=== PATIENT | female | born 1965 | race American Indian/Alaskan Native ===

== ENCOUNTER 2017-11-12 17:17 | Observation (INO) | payer OTHER ==
[2017-11-12 17:17] VITALS: BMI 30.6
--- NOTE | 2017-11-12 17:49 | ED PDOC ---
HPI: General Adult Time Seen by Provider: 11/12/17 17:29 Chief Complaint (Nursing): Headache Chief Complaint (Provider): Headache and chest pain History Per: Patient History/Exam Limitations: no limitations Onset/Duration Of Symptoms: Days (5 months) Additional Complaint(s): Pt. with headache to the left scalp off and on for 5 months. Last few weeks also getting numbness to left lower scap and ear when she gets the pain. Pain is not the worst in her life. Gradual onset. States no vision changes, neck pain, abd pain, nausea, vomit. Also has off and on calf pain going up b/l legs. Also chest burning across today that is gone now. No dyspnea. Past Medical History Reviewed: Nursing Documentation, Vital Signs Vital Signs: Last Vital Signs Temp 98.3 F 11/12/17 17:25 Pulse 97 H 11/12/17 17:25 Resp 16 11/12/17 17:25 BP 188/92 H 11/12/17 17:25 Pulse Ox 98 11/12/17 17:58 - Medical History PMH: Asthma, Diabetes, HTN Denies: Chronic Kidney Disease - Surgical History Surgical History: Tonsillectomy - Family History Family History: States: Unknown Family Hx, Diabetes, Hypertension - Social History Alcohol: None Drugs: Denies - Home Medications Home Medications: Ambulatory Orders Medication Instructions Recorded Insulin Glargine,Hum.rec.anlog 36 unit SC BID 05/28/15 [Lantus] Gabapentin [Neurontin] 1 tab PO HS 12/07/15 MetFORMIN [glucoPHAGE] 1 tab PO BID 12/07/15 Acetaminophen with Codeine 5 - 325 mg PO Q6 PRN 01/30/16 [Tylenol with Codeine #3 Tablet] Amoxicillin/Clavulanate [Augmentin 875 mg PO BID 01/30/16 875 MG-125 MG Tab] Ibuprofen [Motrin Tab] 800 mg PO Q8 01/30/16 Insulin Lispro [Humalog (Insulin 36 unit SQ DAILY 01/30/16 Lispro)] Lisinopril/Hydrochlorothiazide 1 tab PO DAILY 01/30/16 [Lisinopril-Hydrochlorothiazide 25 mg-20 mg] Naproxen [Naprosyn] 500 mg PO PRN PRN 01/30/16 Amoxicillin/Potassium Clav 1 each PO BID #14 tablet 04/07/16 [Augmentin 875-125 Tablet] Sulfamethoxazole/Trimethoprim 1 tab PO BID #14 tab 09/07/16 [Bactrim DS 800 mg-160 mg] Tinidazole 2,000 mg PO DAILY #8 tablet 09/07/16 - Allergies Allergies/Adverse Reactions: Allergies Allergy/AdvReac Type Severity Reaction Status Date / Time No Known Allergies Allergy Verified 08/29/16 10:31 Review of Systems ROS Statement: Except As Marked, All Systems Reviewed And Found Negative Cardiovascular: Positive for: Chest Pain Musculoskeletal: Positive for: Leg Pain Neurological: Positive for: Headache Physical Exam - Reviewed Nursing Documentation Reviewed: Yes Vital Signs Reviewed: Yes - Physical Exam Appears: Positive for: Non-toxic, No Acute Distress Head Exam: Positive for: ATRAUMATIC, NORMAL INSPECTION, NORMOCEPHALIC Skin: Positive for: Normal Color, Warm, DRY Eye Exam: Positive for: EOMI, Normal appearance, PERRL ENT: Positive for: Normal ENT Inspection Neck: Positive for: Normal, Painless ROM, Supple Cardiovascular/Chest: Positive for: Regular Rate, Rhythm. Negative for: Edema Respiratory: Positive for: CNT, Normal Breath Sounds Gastrointestinal/Abdominal: Positive for: Normal Exam, Bowel Sounds, Soft. Negative for: Tenderness Back: Positive for: Normal Inspection. Negative for: L CVA Tenderness, R CVA Tenderness Extremity: Positive for: Normal ROM. 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 Negative for: Motor/Sensory Deficits, Aphasia, Facial Droop - Laboratory Results Result Diagrams: 11/12/17 17:55 - ECG ECG: Positive for: Interpreted By Me, Viewed By Nc ECG Rhythm: Positive for: Normal QRS, Normal ST Segment, Sinus Rhythm O2 Sat by Pulse Oximetry: 98 Pulse Ox Interpretation: Normal - Radiology X-Ray: Read By Radiologist X-Ray Interpretation: No Acute Disease - Other Rad US X-Ray: Read By Radiologist X-Ray Interpretation: no acute - Progress ED Course And Treament: 1909: Stable. Spoke with [facility] resident. Will admit tele. Disposition - Clinical Impression Clinical Impression: Headache, Chest pain - Patient ED Disposition Is Patient to be Admitted: Yes Counseled Patient/Family Regarding: Studies Performed, Diagnosis - Disposition Disposition Time: 19:09 Condition: FAIR - Pt Status Changed To: Hospital Disposition Of: Observation - POA Present On Arrival: None
[2017-11-12 18:08] LABS: BASO # 0.1 K/uL (0.0-0.2); BASO % 1.1 % (0.0-2.0); EOS # 0.3 K/uL (0.0-0.7); EOS % 6.2 % (0.0-4.0); HEMOGLOBIN 12.7 g/dL (12.0-16.0); LYMPH # 2.4 K/uL (1.0-4.3); LYMPH % 44.4 % (20.0-40.0); MEAN CELL VOLUME 79.4 fl (81.0-99.0); MEAN CORPUSCULAR HEMOGLOBIN 25.1 pg (27.0-31.0); MEAN CORPUSCULAR HGB CONC 31.6 g/dL (33.0-37.0); MEAN PLATELET VOLUME 8.3 fl (7.2-11.7); MONO # 0.3 K/uL (0.0-0.8); NEUT # 2.3 K/uL (1.8-7.0); NEUT % 42.3 % (50.0-75.0); NRBC % 0.2 % (0.0-0.0); RBC 5.05 Mil/uL (3.80-5.20); RED CELL DISTRIBUTION WIDTH 14.4 % (11.5-14.5); WHITE BLOOD COUNT 5.3 K/uL (4.8-10.8)
[2017-11-12 18:30] LABS: PARTIAL THROMBOPLASTIN TIME 29.8 Seconds (25.6-37.1); PROTHROMBIN TIME 10.5 Seconds (9.8-13.1)
[2017-11-12 18:32] LABS: ALBUMIN 3.8 g/dL (3.5-5.0); ALT/SGPT 30 U/L (9-52); AST/SGOT 38 U/L (14-36); BLOOD UREA NITROGEN 14 mg/dl (7-17); CALCIUM 9.6 mg/dL (8.4-10.2); GFR AFRICAN-AMERICAN > 60; GFR NON-AFRICAN AMERICAN > 60
--- NOTE | 2017-11-12 18:33 | RAD ---
HISTORY: Headache left facial numbness COMPARISON: 01/04/2016 FINDINGS: LUNGS: No active pulmonary disease. PLEURA: Unremarkable. CARDIOVASCULAR: Normal. OSSEOUS STRUCTURES: No significant abnormalities. VISUALIZED UPPER ABDOMEN: Normal. OTHER FINDINGS: None. IMPRESSION: No active disease. No significant interval change compared to the prior examination(s).
[2017-11-12] MEDS ORDERED: Aspirin 325 mg EC Tablets PO ONE (18:37)
[2017-11-12] MEDS: Lactated Ringer's 500 ML IV SCH (19:19)
--- NOTE | 2017-11-12 19:31 | CT ---
EXAM: CT Head Without Intravenous Contrast CLINICAL HISTORY: 52 years old, female; Pain and signs and symptoms; Numbness / parasthesia and other: Lt facial numbness; Left; Headache; Headache not specified TECHNIQUE: Axial computed tomography images of the head/brain without intravenous contrast. All CT scans at this facility use one or more dose reduction techniques, viz.: automated exposure control; ma/kV adjustment per patient size (including targeted exams where dose is matched to indication; i.e. head); or iterative reconstruction technique. Coronal and sagittal reformatted images were created and reviewed. COMPARISON: No relevant prior studies available. FINDINGS: Brain: Unremarkable. No significant white matter disease. No edema. No intracranial mass, mass effect, or midline shift. Ventricles: Unremarkable. No ventriculomegaly. Bones/joints: Unremarkable. No acute fracture. Soft tissues: Unremarkable. Sinuses: Unremarkable as visualized. No acute sinusitis. Mastoid air cells: Unremarkable as visualized. No mastoid effusion. IMPRESSION: No acute intracranial abnormality.
--- NOTE | 2017-11-12 20:12 | CP.PCM.HP ---
History of Present Illness - History of Present Illness History of Present Illness: 52 yo ,f, PMhx/o DM, HTN , Asthma presents to ED c/o headache located left side scalp started 3 months ago , like pinching sensation, intermittent, 5 times / day , lasting 1 min, radiated to the left side of the face and left ear and associated with numbness left side of the face noted today. Patient also c/o left side chest pain started 7 days ago, 3/10 intensity, like burning, pinching sensation, radiated sometimes to left arm and neck, no pleuritic,no related with deep inspiration or arm movements, no reproducible. She denies fever, dizziness, syncope, head trauma ,blurry vision,ear pain, ear discharge, tinnitus, n,v,abd pain, no hx/o migraine, weakness, or ext numbness. Patient also c/o occs calf pain b/l but denies claudication, leg swelling, orthopnea, recent travel or hx/o DVT. PMD: Dr Hicks . Last visit 10/27/17 Allergies: NKDa Meds: Humalog 36 units daily morning, Lantus 36 units BID, Atorvastatin 10 mg daily, Gabapentin 400 mg TID, Lisinopril/HCTZ 20/25 , Amlodipine 10 mg daily, Flonase 50mcg 1 spray daily, aspirin 81 mg daily , Singular 10 mg daily , Metformin 1000 mg BID PSurgHX: hysterectomy, Right foot, b/L eyes laser. PSHx: No ETOH,rect drugs, cig ED course VS: normal except BP: 198/92 Labs: CBC normal , CMP: AST: 38 mild elevated. Blood sugar: 304 Imaging: EKG: NSR. Possible left atrial enlargement. LVH. CT Head: No intracranial hemorrhage. Us duplex low ext: No DVT Meds: none Present on Admission - Present on Admission Any Indicators Present on Admission: No History of DVT/PE: No History of Uncontrolled Diabetes: Yes Review of Systems - Constitutional Constitutional: As Per HPI - Cardiovascular Cardiovascular: As Per HPI, Chest Pain - Respiratory Respiratory: As Per HPI - Neurological Neurological: As Per HPI Past Patient History - Infectious Disease Hx of Infectious Diseases: None - Past Medical History & Family History Past Medical History?: Yes - Past Social History Alcohol: None Drugs: Denies - CARDIAC Hx Hypertension: Yes - PULMONARY Hx Asthma: Yes - NEUROLOGICAL Hx Neurological Disorder: Yes Other/Comment: NEUROPATHY - HEENT Hx HEENT Problems: No - RENAL Hx Chronic Kidney Disease: No - ENDOCRINE/METABOLIC Hx Endocrine Disorders: Yes Hx Diabetes Mellitus Type 2: Yes - HEMATOLOGICAL/ONCOLOGICAL Hx Blood Disorders: No - INTEGUMENTARY Hx Dermatological Problems: No - MUSCULOSKELETAL/RHEUMATOLOGICAL Hx Musculoskeletal Disorders: Yes - GASTROINTESTINAL Other/Comment: NEUROPATHY - GENITOURINARY/GYNECOLOGICAL Hx Genitourinary Disorders: No - PSYCHIATRIC Hx Emotional Abuse: No Hx Physical Abuse: No Hx Substance Use: No - SURGICAL HISTORY Hx Tonsillectomy: Yes - ANESTHESIA Hx Anesthesia: Yes Hx Anesthesia Reactions: No Hx Malignant Hyperthermia: No Meds Allergies/Adverse Reactions: Allergies Allergy/AdvReac Type Severity Reaction Status Date / Time No Known Allergies Allergy Verified 11/12/17 19:49 Physical Exam - Constitutional Appears: No Acute Distress - Head Exam Head Exam: ATRAUMATIC, NORMOCEPHALIC - Eye Exam Eye Exam: EOMI, Normal appearance, PERRL. absent: Nystagmus - ENT Exam ENT Exam: Mucous Membranes Moist - Neck Exam Neck exam: Positive for: Normal Inspection. Negative for: Meningismus, Tenderness - Respiratory Exam Respiratory Exam: Clear to Auscultation Bilateral. absent: Chest Wall Tenderness, Rales, Rhonchi, Wheezes - Cardiovascular Exam Cardiovascular Exam: REGULAR RHYTHM, +S1, +S2 - GI/Abdominal Exam GI & Abdominal Exam: Normal Bowel Sounds, Soft. absent: Guarding, Rebound, Tenderness - Extremities Exam Extremities exam: Positive for: normal inspection. Negative for: pedal edema - Back Exam Back exam: NORMAL INSPECTION - Neurological Exam Neurological exam: Alert, Oriented x3 - Expanded Neurological Exam Expanded Cranial nerves: EOM's Intact: Normal, Gag Reflex: Normal Neuro motor strength exam: Left Upper Extremity: 5, Right Upper Extremity: 5, Left Lower Extremity: 5, Right Lower Extremity: 5 DTR: Patellar Left: 2+, Patellar Right: 2+ - Psychiatric Exam Psychiatric exam: Normal Affect, Normal Mood - Skin Skin Exam: Intact Results - Vital Signs Recent Vital Signs: Last Vital Signs Temp 97.7 F 11/12/17 19:47 Pulse 99 H 11/12/17 19:47 Resp 16 11/12/17 19:47 BP 161/97 H 11/12/17 19:47 Pulse Ox 99 11/12/17 19:47 - Labs Result Diagrams: 11/12/17 17:55 11/12/17 17:55 Labs: Laboratory Results - last 24 hr 11/12/1718 11/12/17 17:55 17:55 17:55 WBC 5.3 RBC 5.05 Hgb 12.7 Hct 40.1 MCV 79.4 L MCH 25.1 L MCHC 31.6 L RDW 14.4 Plt Count 226 MPV 8.3 Neut % (Auto) 42.3 L Lymph % (Auto) 44.4 H Drew % (Auto) 6.0 Eos % (Auto) 6.2 H Baso % (Auto) 1.1 Neut # (Auto) 2.3 Lymph # (Auto) 2.4 Drew # (Auto) 0.3 Eos # (Auto) 0.3 Baso # (Auto) 0.1 PT 10.5 INR 1.0 APTT 29.8 Sodium 139 Potassium 4.1 Chloride 97 L Carbon Dioxide 29 Anion Gap 17 BUN 14 Creatinine 0.6 L Est GFR ( Amer) > 60 Est GFR (Non-Af Amer) > 60 Random Glucose 304 H Calcium 9.6 Total Bilirubin 0.8 AST 38 H D ALT 30 Alkaline Phosphatase 96 Troponin I < 0.0120 Total Protein 7.6 Albumin 3.8 Globulin 3.8 Albumin/Globulin Ratio 1.0 Assessment & Plan - Assessment and Plan (Free Text) Plan: 52 yo ,f, PMhx/o DM, HTN , Asthma admitted for Chest pain and headache 1)Chest pain To r/o ACS - risk for CAD -EKG: LVH, possible Left atrial enlargement, no ST or T wave ischemic changes -troponin x1 neg -f/u troponin x 2 and KRISTIN -last stress test 2014 neg - never Echo done -f/u Lipid profile -c/w home meds including aspirin 2)Headache -with associated face paresthesia -no skin lesion type zoster, no facial pain. - no hx/o migraine. -Ct head normal -Tylenol PRN pain 3)DM -Uncontrolled -Last Hgba1c 15.4 09/29/17 -f/u hgba1c -c/w home medications -SSI -Blood sugar during night of admission 119 mg/dl. Lantus insulin hold. -Bail Attacher consult suggested. 4)HTN -uncontrolled -pt did not take meds today -BP: 180/100 during night asymptomatic -BP meds Lisinopril/Hctz given -Consider hold morning doses if BP low. 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
[2017-11-12] MEDS ORDERED: Dextrose 50% SYRINGE Inj (50 ml) IV PRN (21:40)
[2017-11-12] MEDS ORDERED: Glucagon Recombinant 1 mg Inj IM PRN (21:40)
[2017-11-12] MEDS ORDERED: Insulin Lispro (humaLOG) 100 Units/ml Inj SC SCH (22:00)
[2017-11-13 06:09] LABS: ALB/GLOB RATIO 0.9 (1.0-2.1); ALT/SGPT 26 U/L (9-52); AST/SGOT 25 U/L (14-36); BLOOD UREA NITROGEN 15 mg/dl (7-17); CALCIUM 9.1 mg/dL (8.4-10.2); GFR AFRICAN-AMERICAN > 60; GFR NON-AFRICAN AMERICAN > 60; HDL CHOLESTEROL 62 MG/DL (30-70)
[2017-11-13 06:16] LABS: LDL CHOLESTEROL 98 mg/dL (0-129)
--- NOTE | 2017-11-13 08:32 | US ---
PROCEDURE: Bilateral lower extremity venous duplex Doppler. HISTORY: r/o dvt COMPARISON: Right lower extremity ultrasound dated 04/07/2016 ; bilateral lower extremity ultrasound dated 04/10/2012. TECHNIQUE: Bilateral common femoral, superficial femoral, popliteal and posterior tibial veins were evaluated. Flow was assessed with color Doppler, compressibility, assessment of phasic flow and augmentation response. FINDINGS: COMMON FEMORAL VEIN: Right CFV: Unremarkable. Left CFV: Unremarkable. SUPERFICIAL FEMORAL VEIN: Right SFV: Unremarkable. Left SFV: Unremarkable. POPLITEAL VEIN: Right Popliteal: Unremarkable. Left Popliteal: Unremarkable. POSTERIOR TIBIAL VEIN: Right PTV: Unremarkable. Left PTV: Unremarkable. OTHER FINDINGS: None. IMPRESSION: No evidence of deep venous thrombosis.
[2017-11-13] MEDS ORDERED: Enoxaparin 40 mg Syringe SC SCH (09:00)
[2017-11-13] MEDS ORDERED: Insulin Regular 100 units/ml SC SCH ×2 (09:00→23:00)
--- NOTE | 2017-11-13 10:05 | CP.PCM.PN ---
Subjective - Date & Time of Evaluation Date of Evaluation: 11/13/17 Time of Evaluation: 10:05 - Subjective Subjective: Patient seen and examined, Objective - Vital Signs/Intake and Output Vital Signs (last 24 hours): Temp Pulse Resp BP Pulse Ox 97.4 F L 80 18 146/77 97 11/13/17 08:00 11/13/17 08:00 11/13/17 08:00 11/13/17 08:00 11/13/17 08:00 - Medications Medications: Current Medications Acetaminophen (Tylenol 325mg Tab) 650 mg PO Q6 PRN PRN Reason: Pain, Mild (1-3) Last Admin: 11/12/17 21:55 Dose: 650 mg Acetaminophen (Tylenol 325mg Tab) 650 mg PO Q6 PRN PRN Reason: Fever >100.4 F Atorvastatin Calcium (Lipitor) 10 mg PO DAILY ON LICENSE OF [facility] Last Admin: 11/13/17 08:49 Dose: 10 mg Dextrose (Dextrose 50% Inj) 0 ml IV STAT PRN; Protocol PRN Reason: Hypoglycemia Protocol Dextrose (Glutose 15) 0 gm PO ONCE PRN; Protocol PRN Reason: Hypoglycemia Protocol Enoxaparin Sodium (Lovenox) 40 mg SC DAILY [place] PRN Reason: Protocol Last Admin: 11/13/17 08:50 Dose: 40 mg Gabapentin (Neurontin) 400 mg PO HS ON LICENSE OF [facility] Last Admin: 11/12/17 22:59 Dose: 400 mg Glucagon (Glucagen Diagnostic Kit) 0 mg IM STAT PRN; Protocol PRN Reason: Hypoglycemia Protocol Hydrochlorothiazide (Hydrodiuril) 25 mg PO ONCE ONE Stop: 11/13/17 21:49 Last Admin: 11/12/17 23:00 Dose: 25 mg Lactated Ringer's (Lactated Ringer's 500ml) 500 mls @ 500 mls/hr IV .Q1H ON LICENSE OF [facility] Last Admin: 11/12/17 19:19 Dose: 500 mls/hr Insulin Human Regular (Humulin R) 36 units SC DAILY ON LICENSE OF [facility] Last Admin: 11/13/17 08:49 Dose: 36 units Insulin Human Regular (Humulin R) 0 units SC ACHS [place] PRN Reason: Protocol Last Admin: 11/13/17 06:39 Dose: 2 units Lisinopril (Zestril) 20 mg PO DAILY ON LICENSE OF [facility] Lisinopril (Zestril) 20 mg PO ONCE ONE Stop: 11/13/17 21:48 Last Admin: 11/12/17 22:59 Dose: 20 mg Metformin HCl (Glucophage) 1,000 mg PO BID [place] Last Admin: 11/13/17 08:48 Dose: 1,000 mg - Labs Labs: 11/12/17 17:55 11/13/17 05:30 PT 10.5 Seconds (9.8-13.1) 11/12/17 17:55 INR 1.0 (0.9-1.2) 11/12/17 17:55 APTT 29.8 Seconds (25.6-37.1) 11/12/17 17:55
[2017-11-13] MEDS: Lactated Ringer's 500 ML IV SCH (10:52)
--- NOTE | 2017-11-13 11:46 | CP.PCM.DIS ---
Provider - Provider Date of Admission: 11/12/17 18:37 Attending physician: Ashley Go MD Primary care physician: Dr. Hicks Consults: None Time Spent in preparation of Discharge (in minutes): 40 Hospital Course - Lab Results Lab Results: Most Recent Lab Values WBC 5.3 K/uL (4.8-10.8) 11/12/17 17:55 RBC 5.05 Mil/uL (3.80-5.20) 11/12/17 17:55 Hgb 12.7 g/dL (12.0-16.0) 11/12/17 17:55 Hct 40.1 % (34.0-47.0) 11/12/17 17:55 MCV 79.4 fl (81.0-99.0) L 11/12/17 17:55 MCH 25.1 pg (27.0-31.0) L 11/12/17 17:55 MCHC 31.6 g/dL (33.0-37.0) L 11/12/17 17:55 RDW 14.4 % (11.5-14.5) 11/12/17 17:55 Plt Count 226 K/uL (130-400) 11/12/17 17:55 MPV 8.3 fl (7.2-11.7) 11/12/17 17:55 Neut % (Auto) 42.3 % (50.0-75.0) L 11/12/17 17:55 Lymph % (Auto) 44.4 % (20.0-40.0) H 11/12/17 17:55 Woodward % (Auto) 6.0 % (0.0-10.0) 11/12/17 17:55 Eos % (Auto) 6.2 % (0.0-4.0) H 11/12/17 17:55 Baso % (Auto) 1.1 % (0.0-2.0) 11/12/17 17:55 Neut # (Auto) 2.3 K/uL (1.8-7.0) 11/12/17 17:55 Lymph # (Auto) 2.4 K/uL (1.0-4.3) 11/12/17 17:55 Woodward # (Auto) 0.3 K/uL (0.0-0.8) 11/12/17 17:55 Eos # (Auto) 0.3 K/uL (0.0-0.7) 11/12/17 17:55 Baso # (Auto) 0.1 K/uL (0.0-0.2) 11/12/17 17:55 ESR 48 mm/hr (0-30) H 11/12/17 17:55 PT 10.5 Seconds (9.8-13.1) 11/12/17 17:55 INR 1.0 (0.9-1.2) 11/12/17 17:55 APTT 29.8 Seconds (25.6-37.1) 11/12/17 17:55 Sodium 140 mmol/l (132-148) 11/13/17 05:30 Potassium 3.4 MMOL/L (3.6-5.0) L 11/13/17 05:30 Chloride 101 mmol/L (98-107) 11/13/17 05:30 Carbon Dioxide 30 mmol/L (22-30) 11/13/17 05:30 Anion Gap 12 (10-20) 11/13/17 05:30 BUN 15 mg/dl (7-17) 11/13/17 05:30 Creatinine 0.6 mg/dl (0.7-1.2) L 11/13/17 05:30 Est GFR ( Amer) > 60 11/13/17 05:30 Est GFR (Non-Af Amer) > 60 11/13/17 05:30 POC Glucose (mg/dL) 66 mg/dL (65-110) 11/13/17 10:47 Random Glucose 153 mg/dL (65-105) H 11/13/17 05:30 Hemoglobin A1c 14.6 % (4.2-6.5) H 11/13/17 05:30 Calcium 9.1 mg/dL (8.4-10.2) 11/13/17 05:30 Total Bilirubin 0.5 mg/dl (0.2-1.3) 11/13/17 05:30 AST 25 U/L (14-36) 11/13/17 05:30 ALT 26 U/L (9-52) 11/13/17 05:30 Alkaline Phosphatase 74 U/L (38-126) 11/13/17 05:30 Troponin I < 0.0120 ng/mL (0.00-0.120) 11/13/17 08:47 Total Protein 6.4 G/DL (6.3-8.2) 11/13/17 05:30 Albumin 3.0 g/dL (3.5-5.0) L D 11/13/17 05:30 Globulin 3.3 gm/dL (2.2-3.9) 11/13/17 05:30 Albumin/Globulin Ratio 0.9 (1.0-2.1) L 11/13/17 05:30 Triglycerides 61 mg/DL (0-149) 11/13/17 05:30 Cholesterol 188 mg/dL (0-199) 11/13/17 05:30 LDL Cholesterol Direct 98 mg/dL (0-129) 11/13/17 05:30 HDL Cholesterol 62 MG/DL (30-70) 11/13/17 05:30 - Hospital Course Hospital Course: This is 52 y/o female with PMH of DM, HTN and Asthma who was admitted to [facility] for evaluation and treatment of Left side headache associated with facial parasthesia and Left side chest pain associated with calf tenderness. Negative troponin x3, CBC and CMP unremarkable except AST 38, EKG showed NSR with LVH, CT head: No acute changes, Duplex LE U/S: no DVT. Patient's symptoms subside on next day. Patient was diagnosed with atypical chest pain with headache. Before discharge patient admits dysuria for 1 month and patient discharged home with instruction to continue home meds and Bactrim DS 1 Tab/day #6 to follow up outpatient urine culture. patient agrees with discharge plan and [facility] Appt at 11:00 am. - Date & Time of H&P Date of H&P: 11/12/17 Time of H&P: 20:15 Discharge Exam - Head Exam Head Exam: ATRAUMATIC, NORMOCEPHALIC - Eye Exam Eye Exam: EOMI, Normal appearance, PERRL Pupil Exam: NORMAL ACCOMODATION - ENT Exam ENT Exam: Mucous Membranes Moist, Normal External Ear Exam (Right TM perforation ), Normal Oropharynx - Neck Exam Neck exam: Full Rom, Normal Inspection - Respiratory Exam Respiratory Exam: NORMAL BREATHING PATTERN. absent: Accessory Muscle Use - Cardiovascular Exam Cardiovascular Exam: REGULAR RHYTHM - GI/Abdominal Exam GI & Abdominal Exam: Normal Bowel Sounds, Soft. absent: Tenderness - Extremities Exam Extremities exam: normal capillary refill - Back Exam Back exam: NORMAL INSPECTION - Neurological Exam Neurological exam: Alert, CN II-XII Intact, Oriented x3, Reflexes Normal - Psychiatric Exam Psychiatric exam: Normal Affect, Normal Mood - Skin Skin Exam: Dry, Intact, Normal Color Discharge Plan - Discharge Medications Prescriptions: Sulfamethoxazole/Trimethoprim [Bactrim DS 800 mg-160 mg] 1 tab PO Q12 #6 tab - Follow Up Plan Condition: FAIR Disposition: HOME/ ROUTINE Additional Instructions: Follow up [facility] on 11/18/17 at 11am
[2017-11-13 15:58] VITALS: BP 158/90; PULSE 93; RESP 20; TEMP 98.1
[2017-11-13 18:31] LABS: SQUAMOUS EPITHIAL 1 /hpf (0-5); URINE BACTERIA MANY (<OCC); URINE BILIRUBIN NEGATIVE (NEGATIVE); URINE BLOOD NEGATIVE (NEGATIVE); URINE CLARITY CLOUDY (Clear); URINE COLOR YELLOW (YELLOW); URINE GLUCOSE (UA) 50 mg/dL (Normal); URINE HYALINE CAST 0-2 /hpf (0-2); URINE LEUKOCYTE ESTERASE MOD Leu/uL (Negative); URINE NITRATE NEGATIVE (NEGATIVE); URINE PROTEIN 100 mg/dL (NEGATIVE); URINE UROBILINOGEN 0.2-1.0 mg/dL (0.2-1.0)
--- NOTE | 2017-11-13 19:03 | CARD ---
APPROVED REPORT EKG Measurement Heart [id number] <Conclusion> Normal sinus rhythm artefact present
--- NOTE | 2017-11-13 19:09 | CARD ---
APPROVED REPORT EKG Measurement Heart [id number] <Conclusion> Normal sinus rhythm Possible Left atrial enlargement Borderline ECG
[2017-11-17 15:40] VITALS: O2SAT 98
== END 2017-11-13 18:27 | disposition home or self-care (01) ==
LOC: H.ER 17:17 → H.ERHOLD 18:37 → H.TEL 20:57
PROVIDERS: ADMIT Family Medicine Geriatric Medicine; ATTEND Family Medicine Geriatric Medicine
DX: R07.89 Other chest pain (principal); E11.42 Type 2 diabetes mellitus with diabetic polyneuropathy; E11.65 Type 2 diabetes mellitus with hyperglycemia; I10 Essential (primary) hypertension; J45.909 Unspecified asthma, uncomplicated; R51 Headache; M79.662 Pain in left lower leg; M79.661 Pain in right lower leg; R30.0 Dysuria
CPT/HCPCS: 36415; 70450; 71045; 80053; 80061; 81003; 81025; 82948; 83036; 84484; 85025; 85610; 85651; 85730; 87086; 87181; 93005; 93970; 99284; G0378; J1650; J7120

== ENCOUNTER 2017-11-24 17:12 | Emergency (ER) | payer OTHER ==
[2017-11-24 17:13] VITALS: BMI 30.6
[2017-11-24 18:01] VITALS: PULSE 92; RESP 16; TEMP 97.5; O2SAT 100
[2017-11-24 19:13] LABS: BASO # 0.1 K/uL (0.0-0.2); BASO % 1.3 % (0.0-2.0); EOS # 0.3 K/uL (0.0-0.7); EOS % 5.1 % (0.0-4.0); HEMOGLOBIN 12.7 g/dL (12.0-16.0); LYMPH # 2.4 K/uL (1.0-4.3); LYMPH % 45.2 % (20.0-40.0); MEAN CELL VOLUME 79.1 fl (81.0-99.0); MEAN CORPUSCULAR HEMOGLOBIN 25.7 pg (27.0-31.0); MEAN CORPUSCULAR HGB CONC 32.5 g/dL (33.0-37.0); MEAN PLATELET VOLUME 8.3 fl (7.2-11.7); MONO # 0.3 K/uL (0.0-0.8); MONO % 6.2 % (0.0-10.0); NEUT # 2.2 K/uL (1.8-7.0); NEUT % 42.2 % (50.0-75.0); NRBC % 0.1 % (0.0-0.0); RBC 4.96 Mil/uL (3.80-5.20); WHITE BLOOD COUNT 5.2 K/uL (4.8-10.8)
--- NOTE | 2017-11-24 19:15 | ED PDOC ---
HPI: CCC, URI, Sore Throat Time Seen by Provider: 11/24/17 18:12 Chief Complaint (Nursing): ENT Problem Chief Complaint (Provider): cough History Per: Patient History/Exam Limitations: no limitations Onset/Duration Of Symptoms: Persistent (x3 years), Worse Since (x2-3 weeks) Current Symptoms Are (Timing): Still Present Additional Complaint(s): 52 year old female with medical history of diabetes, asthma and hypertension, presents to the emergency department with a complaint of sore throat associated with severe cough causing difficulty with swallowing and speaking. She reported symptoms have been ongoing for several years but worsen in the last 2-3 weeks. Denied any fever, chills or runny nose. Patient stated she has history of throat abscess, although, her tonsils were taken out at age 38. PMD: Cee Hicks MD Past Medical History Reviewed: Historical Data, Nursing Documentation, Vital Signs Vital Signs: Last Vital Signs Temp 97.5 F L 11/24/17 17:57 Pulse 92 H 11/24/17 17:57 Resp 16 11/24/17 17:57 BP 161/101 H 11/24/17 20:15 Pulse Ox 100 11/24/17 22:36 - Medical History PMH: Asthma, Diabetes, HTN Denies: Chronic Kidney Disease - Surgical History Surgical History: Tonsillectomy - Family History Family History: States: Unknown Family Hx, Diabetes, Hypertension - Social History Current smoker - smoking cessation education provided: No Ex-Smoker (has not smoked in the last 12 months): No Alcohol: None Drugs: Denies - Home Medications Home Medications: Ambulatory Orders Medication Instructions Recorded Insulin Glargine,Hum.rec.anlog 36 unit SC BID 05/28/15 [Lantus] Gabapentin [Neurontin] 1 tab PO HS 12/07/15 MetFORMIN [glucoPHAGE] 1 tab PO BID 12/07/15 Insulin Lispro [Humalog (Insulin 36 unit SQ DAILY 01/30/16 Lispro)] Lisinopril/Hydrochlorothiazide 1 tab PO DAILY 01/30/16 [Lisinopril-Hctz 20-25 mg Tab] Atorvastatin [Lipitor] 10 mg PO DAILY 11/12/17 Sulfamethoxazole/Trimethoprim 1 tab PO Q12 #6 tab 11/13/17 [Bactrim DS 800 mg-160 mg] Azithromycin 1 tab PO DAILY #6 tab 11/24/17 Prednisone 50 mg PO DAILY #5 tablet 11/24/17 - Allergies Allergies/Adverse Reactions: Allergies Allergy/AdvReac Type Severity Reaction Status Date / Time No Known Allergies Allergy Verified 11/24/17 17:57 Physical Exam - Reviewed Nursing Documentation Reviewed: Yes Vital Signs Reviewed: Yes - Physical Exam Appears: Positive for: Uncomfortable, In Acute Distress (mildly painful). Negative for: No Acute Distress Head Exam: Positive for: ATRAUMATIC, NORMOCEPHALIC Skin: Positive for: Warm, Dry Eye Exam: Positive for: EOMI, PERRL ENT: Positive for: Pharynx Is (clear). Negative for: Pharyngeal Erythema, Tonsillar Exudate, Tonsillar Swelling Neck: Positive for: Painless ROM, Supple Cardiovascular/Chest: Positive for: Regular Rate, Rhythm. Negative for: Murmur Respiratory: Positive for: Normal Breath Sounds. Negative for: Respiratory Distress Gastrointestinal/Abdominal: Positive for: Soft. Negative for: Tenderness Back: Positive for: Normal Inspection. Negative for: Decreased ROM Extremity: Positive for: Normal ROM. Negative for: Deformity Lymphatic: Negative for: Adenopathy Neurologic/Psych: Positive for: Alert. Negative for: Motor/Sensory Deficits - Laboratory Results Result Diagrams: 11/24/17 19:07 11/24/17 19:27 - ECG O2 Sat by Pulse Oximetry: 100 (RA) Pulse Ox Interpretation: Normal Medical Decision Making Medical Decision Making: Initial Impression: Severe throat pain with respiratory compromise Differential Diagnosis: Pharyngeal abscess; Pertussis; Bronchitis; Strep pharyngitis Initial Plan: * CT neck * CMP * Urine dipstick * CBC * Glucose, Blood, POC * Influenza A B * Rapid strep CT soft tissue neck: No acute findings Blood pressure improved without intervention DW pt findings and plan of care. Will rx as pharyngitis/pertussis. Antibiotics and steroid and follow up PMD Scribe Attestation: Documented by Mayra Solis, acting as a scribe for Adina Garcia MD. Provider Scribe Attestation: All medical record entries made by the Scribe were at my direction and personally dictated by me. I have reviewed the chart and agree that the record accurately reflects my personal performance of the history, physical exam, medical decision making, and the department course for this patient. I have also personally directed, reviewed, and agree with the discharge instructions and disposition. Disposition - Clinical Impression Clinical Impression: Pharyngitis, Hypertension Counseled Patient/Family Regarding: Studies Performed, Diagnosis, Need For Followup, Rx Given - Disposition Referrals: [facility] [Outside] - 11/27/17 Disposition: Routine/Home Disposition Time: 22:22 Condition: STABLE Additional Instructions: PLEASE FOLLOW UP WITH CLINIC BY THE END OF WEEK FOR REEVALUATION. STRICT DIABETIC DIET BECAUSE YOUR WILL BE TAKING STEROIDS. Prescriptions: Azithromycin 1 tab PO DAILY #6 tab Prednisone 50 mg PO DAILY #5 tablet Instructions: Sore Throat in Adults, High Blood Pressure (DC) Forms: [facility] ED School/Work Excuse
[2017-11-24 19:43] LABS: ALB/GLOB RATIO 0.9 (1.0-2.1); ALBUMIN 3.8 g/dL (3.5-5.0); ALT/SGPT 33 U/L (9-52); AST/SGOT 33 U/L (14-36); BLOOD UREA NITROGEN 10 mg/dl (7-17); CALCIUM 9.4 mg/dL (8.4-10.2); GFR AFRICAN-AMERICAN > 60; GFR NON-AFRICAN AMERICAN > 60
[2017-11-24] MEDS ORDERED: Sodium Chloride 0.9% 100 ML ONE (20:04)
[2017-11-24] MEDS ORDERED: Iohexol 300 100 ML IJ ONE (20:04)
[2017-11-24 20:16] VITALS: BP 161/101
--- NOTE | 2017-11-24 21:59 | CT ---
EXAM: CT Neck With Intravenous Contrast EXAM DATE/TIME: 11/24/2017 6:43 PM CLINICAL HISTORY: 52 years old, female; Pain; Painful swallowing and throat pain; Prior surgery; Surgery date: 6+ months; Surgery type: Tonsils removed at 38 yrs of age; Patient HX: HX of barium swallow, report with CT; Additional info: Severe throat pain h/o abscesses. Sent phy. Doc. TECHNIQUE: Axial computed tomography images of the neck with intravenous contrast. All CT scans at this facility use one or more dose reduction techniques, viz.: automated exposure control; ma/kV adjustment per patient size (including targeted exams where dose is matched to indication; i.e. head); or iterative reconstruction technique. Coronal and sagittal reformatted images were created and reviewed. CONTRAST: 80 mL of [id number] administered intravenously. COMPARISON: No relevant prior studies available. FINDINGS: NASOPHARYNX: No acute abnormality of the adenoidal/the nasopharyngeal tonsils identified. OROPHARYNX: No acute abnormality of the palatine tonsils identified. No evidence of peritonsillar abscess. No acute abnormality of the tongue base identified. HYPOPHARYNX: No acute abnormality of the pyriform sinuses visualized. LARYNX: No acute abnormality of the vocal cords identified. No acute abnormality of the epiglottis identified. No acute abnormality of the vallecula identified. TRACHEA: Visualized portions of the trachea appear patent. RETROPHARYNGEAL SPACE: No evidence of prevertebral/retropharyngeal fluid or fluid collection. SUBMANDIBULAR/PAROTID GLANDS: No acute abnormality of the submandibular or parotid glands identified. THYROID: Bilateral thyroid nodules. The largest of these measures 1.6 cm, and is located in the left lobe. Recommend thyroid ultrasound or scintigraphy for further evaluation, given the size of this nodule, on a nonemergent basis, unless otherwise clinically indicated. BONES/JOINTS: No acute fractures or other acute bony abnormality noted. SOFT TISSUES: No findings to suggest significant cellulitis of the soft tissues. VASCULATURE: No acute abnormality of the major neck vessels is seen. LYMPH NODES: No evidence of diffuse lymphadenopathy. ESOPHAGUS: Upper esophagus appears air filled and mildly dilated. No evidence of of diffuse esophageal wall thickening or radiopaque foreign bodies. LUNG APICES: Lung apices appear clear. IMPRESSION: - No evidence of significant acute process. No definite cause for pain identified. - Incidental thyroid nodule. See above recommendations. - See above for remaining findings.
== END 2017-11-24 22:47 | disposition home or self-care (01) ==
LOC: H.ER 17:12
DX: J02.9 Acute pharyngitis, unspecified (principal); I10 Essential (primary) hypertension; E11.9 Type 2 diabetes mellitus without complications; J45.909 Unspecified asthma, uncomplicated; Z79.4 Long term (current) use of insulin; Z87.891 Personal history of nicotine dependence
CPT/HCPCS: 70491; 80053; 81025; 85025; 87070; 87430; 87804; 99283; Q9967

== ENCOUNTER 2018-02-18 10:40 | Emergency (ER) | payer OTHER ==
[2018-02-18 10:53] VITALS: BMI 28.9
[2018-02-18] MEDS ORDERED: Sodium Chloride 0.9% 1,000 ML IV STA (11:35)
--- NOTE | 2018-02-18 12:09 | ED PDOC ---
HPI: Back Chief Complaint (Provider): back pain History Per: Patient History/Exam Limitations: no limitations Onset/Duration Of Symptoms: Persistent Current Symptoms Are (Timing): Still Present Quality Of Discomfort: Aching Pain Scale Rating Of: 8 Previous Symptoms: Back Pain Associated Symptoms: New Numbness (in back) Exacerbating Factor(s): Turning, Movement, Sitting Additional History Per: Patient Additional Complaint(s): 53 yr old F presents to ED with complaint of left back pain radiating to left lower abdomen and pelvis. Patient reports pain has been present x 1 month and worsened with associated numbness and tingling of the left lower back. Pain is achy, 8/10, exacerbated by sitting or bending over, alleviated by walking. Denies skin rash, dysuria, fever, chills, injury or falls, diarrhea, nausea or vomiting. Denies urinary or fecal incontinence, denies numbness or tingling radiating to lower extremities, denies difficulty walking or lower extremity weakness. PMD: Dr. Hicks - Risk Factors AAA Risk Factors: Pos: Older Than 49 Years Of Age, Hypertension <Kenyatta Gomez - Last Filed: 02/18/18 13:12> <Kendrick Bray - Last Filed: 02/18/18 14:55> Time Seen by Provider: 02/18/18 11:04 Chief Complaint (Nursing): Back Pain Past Medical History Vital Signs: Last Vital Signs Temp 997.8 F H 02/18/18 10:43 Pulse 109 H 02/18/18 10:43 Resp 17 02/18/18 10:43 BP 173/110 H 02/18/18 10:43 Pulse Ox 97 02/18/18 10:43 - Medical History PMH: Asthma, Diabetes (insulin dependant, uncontrolled), HTN (uncontrolled) Denies: Chronic Kidney Disease - Surgical History Surgical History: Tonsillectomy Other surgeries: hysterectomy - Family History Family History: States: Unknown Family Hx, Diabetes, Hypertension - Living Arrangements Living Arrangements: With Family - Social History Current smoker - smoking cessation education provided: No Ex-Smoker (has not smoked in the last 12 months): No Alcohol: None Drugs: Denies <Kenyatta Gomez - Last Filed: 02/18/18 13:12> Vital Signs: Last Vital Signs Temp 98.5 F 02/18/18 13:02 Pulse 95 H 02/18/18 13:02 Resp 17 02/18/18 13:02 BP 173/110 H 02/18/18 10:43 Pulse Ox 97 02/18/18 13:15 <Kendrick Bray - Last Filed: 02/18/18 14:55> - Home Medications Home Medications: Ambulatory Orders Medication Instructions Recorded Insulin Glargine,Hum.rec.anlog 36 unit SC BID 05/28/15 [Lantus] Gabapentin [Neurontin] 1 tab PO HS 12/07/15 MetFORMIN [glucoPHAGE] 1 tab PO BID 12/07/15 Insulin Lispro [Humalog (Insulin 36 unit SQ DAILY 01/30/16 Lispro)] Lisinopril/Hydrochlorothiazide 1 tab PO DAILY 01/30/16 [Lisinopril-Hctz 20-25 mg Tab] Atorvastatin [Lipitor] 10 mg PO DAILY 11/12/17 Sulfamethoxazole/Trimethoprim 1 tab PO Q12 #6 tab 11/13/17 [Bactrim DS 800 mg-160 mg] Azithromycin 1 tab PO DAILY #6 tab 11/24/17 Prednisone 50 mg PO DAILY #5 tablet 11/24/17 Ibuprofen [Motrin] 600 mg PO TID 7 Days tab 02/18/18 Magnesium Citrate [Good Neighbor 150 ml PO DAILY PRN 5 Days bottle 02/18/18 Pharmacy Magnesium Citrate] - Allergies Allergies/Adverse Reactions: Allergies Allergy/AdvReac Type Severity Reaction Status Date / Time No Known Allergies Allergy Verified 02/18/18 11:35 Supervising Attending Note - Supervising Attending Note The Documented history was done by the: Physician Modeling Manager The documented physical exam was done by the: Physician Modeling Manager The documented procedures were done by the: Physician Modeling Manager - Attestation: I have personally seen and examined this patient.: Yes I have fully participated in the care of the patient.: Yes I have reviewed all pertinent clinical information: Yes - Notes: Notes:: Abd pain coming from back left. <Kendrick Bray - Last Filed: 02/18/18 14:55> Review of Systems Constitutional: Negative for: Fever, Chills Eyes: Negative for: Pain ENT: Negative for: Ear Pain, Nose Discharge, Throat Pain Cardiovascular: Negative for: Chest Pain, Palpitations Respiratory: Negative for: Cough, Shortness of Breath, Hemoptysis Gastrointestinal: Positive for: Abdominal Pain, Constipation. Negative for: Nausea, Vomiting, Diarrhea Genitourinary Female: Negative for: Dysuria, Frequency Musculoskeletal: Positive for: Back Pain. Negative for: Neck Pain, Shoulder Pain, Arm Pain Skin: Negative for: Rash, Lesions Neurological: Positive for: Numbness (lower back). Negative for: Weakness, Confusion, Headache, Dizziness <Kenyatta Gomez - Last Filed: 02/18/18 13:12> Physical Exam - Physical Exam Appears: Positive for: No Acute Distress Head Exam: Positive for: ATRAUMATIC, NORMOCEPHALIC Skin: Positive for: Normal Color, Warm, Dry Eye Exam: Positive for: EOMI, PERRL ENT: Positive for: Normal ENT Inspection Neck: Positive for: Normal Cardiovascular/Chest: Negative for: Gallop, Murmur Respiratory: Positive for: Normal Breath Sounds. Negative for: Crackles, Rales , Rhonchi Pulses-Carotid (L): 2+ Pulses-Carotid (R): 2+ Pulses-Radial (L): 2+ Pulses-Radial (R): 2+ Gastrointestinal/Abdominal: Positive for: Bowel Sounds (present), Soft, Tenderness (LLQ). Negative for: Distended, Guarding, Rebound Back: Positive for: Normal Inspection. Negative for: L CVA Tenderness, R CVA Tenderness Extremity: Positive for: Normal ROM. Negative for: Tenderness, Pedal Edema, Calf Tenderness, Swelling Lymphatic: Negative for: Adenopathy Neurologic/Psych: Positive for: Alert, seamless tube drawer II-XII (grossly intact), Oriented, Mood/Affect (normal/full range), Gait (normal, wearing heels). Negative for: Motor/Sensory Deficits <Kenyatta Gomez - Last Filed: 02/18/18 13:12> - Physical Exam Gastrointestinal/Abdominal: Positive for: Tenderness <Kendrick Bray - Last Filed: 02/18/18 14:55> - Laboratory Results Result Diagrams: 02/18/18 11:50 02/18/18 11:50 - ECG O2 Sat by Pulse Oximetry: 97 - Progress ED Course And Treament: -CBC w/diff: normal -CMP: random glucose 495mg/dL, rest within normal limits -Udip: -CT abd/pelvis without contrast: severe constipation with fecalization of small bowel contents in the terminal ileum suggestive of chronic stasis, no bowel obstruction. No nephrolithiasis, no hydronephrosis or obstructive uropathy. -Toradol 15 mg IV once, NS 1L IV bolus -random serum glucose 495 mg/dL -6 units regular insulin SC ordered -Fleet enema ordered -Tylenol 625mg PO once ordered Condition: Re-examined <Kenyatta Gomez - Last Filed: 02/18/18 13:12> - Laboratory Results Result Diagrams: 02/18/18 11:50 02/18/18 11:50 Interpretation Of Abn Labs: 495 glucose - CT Scan/US ct Other Rad Studies (CT/US): Read By Radiologist Other Rad Interpretation: constipation - Progress ED Course And Treament: 1450: Stable. Will give insulin for glucose. Pt. noncompliant with meds and DM control. Fu with pcp. Constipation, given enema. Tolerated po. AAOx3. <Kendrick Bray - Last Filed: 02/18/18 14:55> Disposition <Kenyatta Gomez - Last Filed: 02/18/18 13:12> - Patient ED Disposition Is Patient to be Admitted: No Counseled Patient/Family Regarding: Studies Performed, Diagnosis, Need For Followup, Rx Given - Disposition Disposition: Routine/Home Disposition Time: 14:53 <Kendrick Bray - Last Filed: 02/18/18 14:55> - Clinical Impression Clinical Impression: Hyperglycemia, Constipation - Disposition Referrals: [facility] [Outside] - 02/19/18 Condition: STABLE Additional Instructions: Return if not better in 3 days. Take your meds as prescribed. Prescriptions: Ibuprofen [Motrin] 600 mg PO TID 7 Days tab Magnesium Citrate [[facility] Magnesium Citrate] 150 ml PO DAILY PRN 5 Days bottle PRN Reason: Constipation Instructions: Hyperglycemia, Adult, Constipation in Adults Forms: [facility] ED School/Work Excuse, [facility] (Bulgarian)
[2018-02-18 12:34] LABS: BASO % 0.6 % (0.0-2.0); EOS # 0.1 K/uL (0.0-0.7); EOS % 2.8 % (0.0-4.0); HEMOGLOBIN 13.2 g/dL (12.0-16.0); LYMPH # 1.5 K/uL (1.0-4.3); LYMPH % 32.9 % (20.0-40.0); MEAN CELL VOLUME 78.4 fl (81.0-99.0); MEAN CORPUSCULAR HEMOGLOBIN 26.1 pg (27.0-31.0); MEAN CORPUSCULAR HGB CONC 33.3 g/dL (33.0-37.0); MEAN PLATELET VOLUME 8.8 fl (7.2-11.7); MONO # 0.3 K/uL (0.0-0.8); MONO % 6.1 % (0.0-10.0); NEUT # 2.6 K/uL (1.8-7.0); NEUT % 57.6 % (50.0-75.0); NRBC % 0.1 % (0.0-0.0); RBC 5.06 Mil/uL (3.80-5.20); WHITE BLOOD COUNT 4.5 K/uL (4.8-10.8)
--- NOTE | 2018-02-18 12:44 | CT ---
PROCEDURE: CT Abdomen and Pelvis without intravenous contrast HISTORY: R/O stone COMPARISON: None. TECHNIQUE: CT scan of the abdomen and pelvis was performed without administration of intravenous contrast. Oral contrast was not administered. Coronal and sagittal reformatted images were obtained. Radiation dose: Total exam DLP = 810.28 mGy-cm. This CT exam was performed using one or more of the following dose reduction techniques: Automated exposure control, adjustment of the mA and/or kV according to patient size, and/or use of iterative reconstruction technique. FINDINGS: LOWER THORAX: There are cystic changes in the right lower lobe. The lung bases are clear. LIVER: Normal in size. No gross lesion or ductal dilatation. GALLBLADDER AND BILE DUCTS: No calcified gallstones. PANCREAS: Normal in size. No gross lesion or ductal dilatation. SPLEEN: Normal in size. ADRENALS: No discrete nodule. KIDNEYS AND URETERS: Normal in size without nephrolithiasis. No hydronephrosis. VASCULATURE: No aortic aneurysm. BOWEL: The small bowel loops are normal in caliber. There is fecalization of small bowel contents in the terminal ileum. There is large amount of stool in the colon. No bowel dilatation or obstruction. APPENDIX: Normal appendix. PERITONEUM: No free fluid. No free air. LYMPH NODES: No enlarged lymph nodes. BLADDER: Over distended and normal in appearance. REPRODUCTIVE: The uterus is surgically absent. BONES: No acute fracture. Within normal limits for the patient's age. OTHER FINDINGS: There is a small sliding hiatal hernia. IMPRESSION: 1. Severe constipation. Fecalization of small bowel contents in the terminal ileum suggestive of chronic stasis. No bowel obstruction. 2. No nephrolithiasis, hydronephrosis or obstructive uropathy.
[2018-02-18 13:02] LABS: ALB/GLOB RATIO 0.9 (1.0-2.1); ALBUMIN 3.6 g/dL (3.5-5.0); ALT/SGPT 33 U/L (9-52); AST/SGOT 26 U/L (14-36); BLOOD UREA NITROGEN 17 mg/dl (7-17); CALCIUM 9.6 mg/dL (8.4-10.2); GFR AFRICAN-AMERICAN > 60; GFR NON-AFRICAN AMERICAN > 60
[2018-02-18] MEDS ORDERED: Insulin Regular 100 units/ml IV STA (13:08)
[2018-02-18 13:15] VITALS: O2SAT 97
[2018-02-18] MEDS ORDERED: Insulin Regular 100 units/ml ONE (13:33)
[2018-02-18 17:33] VITALS: BP 137/92; PULSE 99; RESP 18; TEMP 97.7
== END 2018-02-18 17:41 | disposition home or self-care (01) ==
LOC: H.ER 10:40
DX: K59.00 Constipation, unspecified (principal); E11.65 Type 2 diabetes mellitus with hyperglycemia; I10 Essential (primary) hypertension; J45.909 Unspecified asthma, uncomplicated; Z79.4 Long term (current) use of insulin; Z87.891 Personal history of nicotine dependence; Z90.710 Acquired absence of both cervix and uterus
CPT/HCPCS: 74176; 80053; 82948; 85025; 96361; 96374; 96375; 99284; J1885; J7040

== ENCOUNTER 2018-03-02 13:52 | Emergency (ER) | payer OTHER ==
[2018-03-02 13:53] VITALS: BMI 28.9
[2018-03-02 14:17] VITALS: TEMP 98
[2018-03-02] MEDS ORDERED: Sodium Chloride 0.9% 1,000 ML IV STA (14:44)
--- NOTE | 2018-03-02 14:58 | ED PDOC ---
HPI: Abdomen Chief Complaint (Provider): Abdominal pain and constipation History Per: Patient History/Exam Limitations: no limitations Onset/Duration Of Symptoms: Days Outside of [place] travel?: No Current Symptoms Are (Timing): Still Present Pain Scale Rating Of: 4 Associated Symptoms: Back Pain, Constipation. denies: Fever, Chills, Nausea, Vomiting, Diarrhea, Chest Pain, Urinary Symptoms Exacerbating Factors: Movement Last Bowel Movement: Days Ago <Bernie Feldman - Last Filed: 03/02/18 15:34> <Kendrick Bray - Last Filed: 03/02/18 16:43> Time Seen by Provider: 03/02/18 14:32 Chief Complaint (Nursing): Abdominal Pain Additional Complaint(s): 53 y/o F with PMHx of DM, HTN, Asthma, presents to ED complaining of constipation. Patient states that the last BM was on 02/22/18. Also patient is reporting left back pain for 1 month radiating to her left abdomen, aggravating when bending forward, and associated with tingling and numbness sensation. patient was seen in ER on 02/17/18 for similar complains, managed as constipation. Patient states that she was seen by her PCP on 02/23/18 for f/u of her symptoms, who prescribed Miralax daily and Dulcolax PRN for constipation. Patient states she has an oncoming appointment with GI specialist to scheduled colonoscopy. She had two unsuccessful colonoscopy 2 years ago due to poor prep. Cee Osborne (Bernie Feldman) Pt. with constipation. Ongoing issue for sometime. Seen in ER and by pcp for the same. Had fleets last time and it helped. (Kendrick Bray) Supervising Attending Note - Supervising Attending Note The Documented history was done by the: Physician Regulatory Submissions Associate The documented physical exam was done by the: Physician Regulatory Submissions Associate The documented procedures were done by the: Physician Regulatory Submissions Associate - Attestation: I have personally seen and examined this patient.: Yes I have fully participated in the care of the patient.: Yes I have reviewed all pertinent clinical information: Yes <Kendrick Bray - Last Filed: 03/02/18 16:43> Past Medical History - Medical History PMH: Asthma, Diabetes (insulin dependant, uncontrolled), HTN Denies: Chronic Kidney Disease - Surgical History Surgical History: Tonsillectomy - Family History Family History: States: Unknown Family Hx, Diabetes, Hypertension <Bernie Feldman - Last Filed: 03/02/18 15:34> Reviewed: Nursing Documentation, Vital Signs <Kendrick Bray - Last Filed: 03/02/18 16:43> Vital Signs: Last Vital Signs Temp 98.0 F 03/02/18 14:11 Pulse 94 H 03/02/18 14:11 Resp 20 03/02/18 14:11 BP 169/85 H 03/02/18 14:11 Pulse Ox 97 03/02/18 15:44 - Home Medications Home Medications: Ambulatory Orders Medication Instructions Recorded Insulin Glargine,Hum.rec.anlog 36 unit SC BID 05/28/15 [Lantus] Gabapentin [Neurontin] 1 tab PO HS 12/07/15 MetFORMIN [glucoPHAGE] 1 tab PO BID 12/07/15 Insulin Lispro [Humalog (Insulin 36 unit SQ DAILY 01/30/16 Lispro)] Lisinopril/Hydrochlorothiazide 1 tab PO DAILY 01/30/16 [Lisinopril-Hctz 20-25 mg Tab] Atorvastatin [Lipitor] 10 mg PO DAILY 11/12/17 Sulfamethoxazole/Trimethoprim 1 tab PO Q12 #6 tab 11/13/17 [Bactrim DS 800 mg-160 mg] Azithromycin 1 tab PO DAILY #6 tab 11/24/17 Prednisone 50 mg PO DAILY #5 tablet 11/24/17 Ibuprofen [Motrin] 600 mg PO TID 7 Days tab 02/18/18 Magnesium Citrate [Good Neighbor 150 ml PO DAILY PRN 5 Days bottle 02/18/18 Pharmacy Magnesium Citrate] Nitrofurantoin Macrocrystals 100 mg PO BID #14 cap 02/18/18 [Macrobid] - Allergies Allergies/Adverse Reactions: Allergies Allergy/AdvReac Type Severity Reaction Status Date / Time No Known Allergies Allergy Verified 02/18/18 11:35 Review of Systems ROS Statement: Except As Marked, All Systems Reviewed And Found Negative (as per HPI) <Bernie Feldman - Last Filed: 03/02/18 15:34> Gastrointestinal: Positive for: Abdominal Pain, Constipation <Kendrick Bray - Last Filed: 03/02/18 16:43> Physical Exam - Reviewed Nursing Documentation Reviewed: Yes Vital Signs Reviewed: Yes - Physical Exam Appears: Positive for: Non-toxic, No Acute Distress Head Exam: Positive for: ATRAUMATIC, NORMOCEPHALIC Skin: Positive for: Normal Color, Warm, Dry Eye Exam: Positive for: Normal appearance Neck: Positive for: Normal, Supple Cardiovascular/Chest: Positive for: Regular Rate, Rhythm. Negative for: Chest Non Tender, Edema, Bradycardia, Tachycardia Respiratory: Positive for: Normal Breath Sounds. Negative for: Decreased Breath Sounds, Accessory Muscle Use, Crackles, Rales, Rhonchi, Wheezing, Respiratory Distress Gastrointestinal/Abdominal: Positive for: Bowel Sounds, Soft, Distended. Negative for: Tenderness, Guarding, Rebound Extremity: Negative for: Pedal Edema, Calf Tenderness Neurologic/Psych: Positive for: Alert, Oriented <Bernie Feldman - Last Filed: 03/02/18 15:34> - Physical Exam Gastrointestinal/Abdominal: Positive for: Soft. Negative for: Tenderness, Distended Back: Positive for: Normal Inspection. Negative for: L CVA Tenderness, R CVA Tenderness <Kendrick Bray - Last Filed: 03/02/18 16:43> - ECG O2 Sat by Pulse Oximetry: 97 <Bernie Feldman - Last Filed: 03/02/18 15:34> - Laboratory Results Result Diagrams: 03/02/18 15:20 03/02/18 15:20 Interpretation Of Abn Labs: no acute - ECG Pulse Ox Interpretation: Normal - Radiology X-Ray: Read By Radiologist X-Ray Interpretation: Other (constipation; no obstruction) <Kendrick Bray - Last Filed: 03/02/18 16:43> - Progress ED Course And Treament: 1641: Given a fleet and pt. had bowel movement. Feels much better. Has appt with GI on Thursday. AAOx3. Pain free. Tolerated PO. Fu with pcp. CT last visit with constipation. (Kendrick Bray) Medical Decision Making <Bernie Feldman - Last Filed: 03/02/18 15:34> <Kendrick Bray - Last Filed: 03/02/18 16:43> Medical Decision Making: Constipation -last BM on 02/17/18 -was taking Miralax and Dulcolax -obstructive abdominal series -UA -CBC, CMP -Toradol -NS IV bolus Once (Bernie Feldman) Disposition <Bernie Feldman - Last Filed: 03/02/18 15:34> - Patient ED Disposition Is Patient to be Admitted: No Counseled Patient/Family Regarding: Studies Performed, Diagnosis, Need For Followup - Disposition Disposition: Routine/Home Disposition Time: 16:42 <Kendrick Bray - Last Filed: 03/02/18 16:43> - Clinical Impression Clinical Impression: Constipation - Disposition Referrals: Cee Hicks MD [Primary Care Provider] - 03/03/18 Condition: STABLE Additional Instructions: Return if not better in 3 days. Instructions: Constipation in Adults Forms: [facility] (Lebanese)
--- NOTE | 2018-03-02 15:12 | RAD ---
PROCEDURE: Radiographs of the chest and abdomen (obstructive series) HISTORY: pain and constipation COMPARISON: CT scan of the abdomen and pelvis dated 02/18/2018 ; chest radiograph dated 12/30/2015. TECHNIQUE: AP radiograph of the chest, with upright and supine radiographs of the abdomen. FINDINGS: CHEST: Lungs: Clear. Cardiovascular: Atherosclerotic aortic calcifications. Cardiomediastinal silhouette within normal limits. Pleura: No pleural fluid. No pneumothorax. Other findings: None. ABDOMEN AND PELVIS: Bowel: Marked amount of retained colonic stool. Unremarkable bowel gas pattern. No evidence of mechanical obstruction. Free air: None. Bones: Unremarkable. Other findings: None. IMPRESSION: Constipation.
[2018-03-02 15:27] LABS: EOS # 0.3 K/uL (0.0-0.7); EOS % 5.8 % (0.0-4.0); HEMOGLOBIN 12.5 g/dL (12.0-16.0); LYMPH # 1.9 K/uL (1.0-4.3); LYMPH % 40.7 % (20.0-40.0); MEAN CELL VOLUME 78.7 fl (81.0-99.0); MEAN CORPUSCULAR HEMOGLOBIN 25.9 pg (27.0-31.0); MEAN CORPUSCULAR HGB CONC 32.9 g/dL (33.0-37.0); MEAN PLATELET VOLUME 8.7 fl (7.2-11.7); MONO # 0.3 K/uL (0.0-0.8); MONO % 7.1 % (0.0-10.0); NEUT # 2.1 K/uL (1.8-7.0); NEUT % 45.4 % (50.0-75.0); RBC 4.81 Mil/uL (3.80-5.20); RED CELL DISTRIBUTION WIDTH 14.7 % (11.5-14.5); WHITE BLOOD COUNT 4.6 K/uL (4.8-10.8)
[2018-03-02 15:42] LABS: ALB/GLOB RATIO 0.9 (1.0-2.1); ALBUMIN 3.5 g/dL (3.5-5.0); ALT/SGPT 29 U/L (9-52); AST/SGOT 39 U/L (14-36); BLOOD UREA NITROGEN 19 mg/dl (7-17); GFR AFRICAN-AMERICAN > 60; GFR NON-AFRICAN AMERICAN > 60
[2018-03-02 16:58] VITALS: BP 145/80; PULSE 93; RESP 18; O2SAT 99
== END 2018-03-02 17:02 | disposition home or self-care (01) ==
LOC: SUPCPDRO 13:52 → H.ER 13:52
DX: K59.00 Constipation, unspecified (principal); E11.9 Type 2 diabetes mellitus without complications; I10 Essential (primary) hypertension; J45.909 Unspecified asthma, uncomplicated; Z79.4 Long term (current) use of insulin
CPT/HCPCS: 74022; 80053; 85025; 96361; 96374; 99285; J1885; J7030

== ENCOUNTER 2018-12-14 13:18 | Inpatient (IN) | payer OTHER ==
[2018-12-14 13:18] VITALS: BMI 28.9
[2018-12-14] MEDS ORDERED: Sodium Chloride 0.9% 1,000 ML IV SCH ×2 (14:00→20:45)
--- NOTE | 2018-12-14 15:19 | RAD ---
HISTORY: chest pain COMPARISON: Chest x-ray performed 11/12/17 TECHNIQUE: Chest PA and lateral FINDINGS: LUNGS: No focal consolidation. Please note that chest x-ray has limited sensitivity for the detection of pulmonary masses. PLEURA: No significant pleural effusion identified. No definite pneumothorax . CARDIOVASCULAR: Heart size appears within normal limits. Atherosclerotic calcifications of an ectatic aorta. OSSEOUS STRUCTURES: Degenerative changes of the spine. VISUALIZED UPPER ABDOMEN: Unremarkable. OTHER FINDINGS: None. IMPRESSION: No focal consolidation.
[2018-12-14 16:09] LABS: BASO % 0.7 % (0.0-2.0); EOS # 0.1 K/uL (0.0-0.7); EOS % 2.6 % (0.0-4.0); HEMOGLOBIN 13.2 g/dL (12.0-16.0); LYMPH # 1.6 K/uL (1.0-4.3); LYMPH % 32.9 % (20.0-40.0); MEAN CELL VOLUME 79.8 fl (81.0-99.0); MEAN CORPUSCULAR HEMOGLOBIN 25.2 pg (27.0-31.0); MEAN CORPUSCULAR HGB CONC 31.6 g/dL (33.0-37.0); MEAN PLATELET VOLUME 8.6 fl (7.2-11.7); MONO # 0.3 K/uL (0.0-0.8); MONO % 6.6 % (0.0-10.0); NEUT # 2.9 K/uL (1.8-7.0); NEUT % 57.2 % (50.0-75.0); NRBC % 0.1 % (0.0-0.0); RBC 5.25 Mil/uL (3.80-5.20)
[2018-12-14 17:00] LABS: ALT/SGPT 25 U/L (9-52); AMYLASE 65 U/L (30-110); AST/SGOT 28 U/L (14-36); BLOOD UREA NITROGEN 24 mg/dl (7-17); GFR NON-AFRICAN AMERICAN > 60
[2018-12-14] MEDS ORDERED: Sodium Chloride 0.9% 500 ML IV STA (18:07)
[2018-12-14 19:27] LABS: SQUAMOUS EPITHIAL 2 /hpf (0-5); URINE BACTERIA RARE (<OCC); URINE BILIRUBIN NEGATIVE (NEGATIVE); URINE BLOOD NEGATIVE (NEGATIVE); URINE CLARITY CLOUDY (Clear); URINE COLOR YELLOW (YELLOW); URINE GLUCOSE (UA) >=500 mg/dL (NEGATIVE); URINE LEUKOCYTE ESTERASE TRACE Leu/uL (Negative); URINE PROTEIN 100 mg/dL (NEGATIVE)
--- NOTE | 2018-12-14 19:27 | ED PDOC ---
Syncope/Near Syncope/Dizziness Time Seen by Provider: 12/14/18 13:45 Chief Complaint (Nursing): Dizziness/Lightheaded Chief Complaint (Provider): dizziness History Per: Patient History/Exam Limitations: no limitations Onset/Duration Of Symptoms: Days, Intermittent Episodes Current Symptoms Are (Timing): Still Present Current Symptoms: Dizziness/ elevated blood sugar Activity At Onset Of Symptoms: Sitting, Standing, Walking Seizure Or Post-ictal Symptoms: None Possible Causative Factor(s): Vertigo, Other (elevated blood sugar) Severity: Mild Additional History Per: Patient Additional Complaint(s): 53y/o female with h/o DM and HTN presents with EMS on stretcher from the [facility] after episode of near syncope. As per pt, she went to a routine visit to the clinic and was found to have blood sugar over 400 in the office. Pt was given insulin at the office and was d/c home. Pt reports s he walked down a few steps and dizziness worsened. Additionally, pt reports intermittent chest pain a few weeks ago. Denies CP at this time. Pt was called back sent to ED for eval. Pt denies headache, cough, blurry vision. +nausea, no vomiting. - Symptoms Of CVA Recent Aspirin Use: Unknown Current Coumadin Use?: No Recent Head Trauma: No - Risk Factors Risk Factors (Syncope): Neg: H/O Ventricular Arrhythmias, Known Coronary Artery Disease, H/O Severe Valvular Disease, Congestive Heart Failure, H/O Congenital Heart Disease, Family History Of Sudden , Exertional Syncope Past Medical History Vital Signs: Last Vital Signs Temp 98.0 F 12/14/18 13:19 Pulse 78 12/14/18 15:45 Resp 18 12/14/18 15:45 BP 139/74 12/14/18 15:45 Pulse Ox 99 12/14/18 15:45 - Medical History PMH: Asthma, Diabetes (insulin dependant, uncontrolled), HTN Denies: Chronic Kidney Disease - Surgical History Surgical History: Tonsillectomy - Family History Family History: States: Unknown Family Hx, Diabetes, Hypertension - Living Arrangements Living Arrangements: With Family - Social History Alcohol: None Drugs: Denies - Home Medications Home Medications: Ambulatory Orders Medication Instructions Recorded Insulin Glargine,Hum.rec.anlog 36 unit SC BID 05/28/15 [Lantus] Gabapentin [Neurontin] 1 tab PO HS 12/07/15 MetFORMIN [glucoPHAGE] 1 tab PO BID 12/07/15 Insulin Lispro [Humalog (Insulin 36 unit SQ DAILY 01/30/16 Lispro)] Lisinopril/Hydrochlorothiazide 1 tab PO DAILY 01/30/16 [Lisinopril-Hctz 20-25 mg Tab] Atorvastatin [Lipitor] 10 mg PO DAILY 11/12/17 Sulfamethoxazole/Trimethoprim 1 tab PO Q12 #6 tab 11/13/17 [Bactrim DS 800 mg-160 mg] Azithromycin 1 tab PO DAILY #6 tab 11/24/17 Prednisone 50 mg PO DAILY #5 tablet 11/24/17 Ibuprofen [Motrin] 600 mg PO TID 7 Days tab 02/18/18 Magnesium Citrate [Good Neighbor 150 ml PO DAILY PRN 5 Days bottle 02/18/18 Pharmacy Magnesium Citrate] Nitrofurantoin Macrocrystals 100 mg PO BID #14 cap 02/18/18 [Macrobid] - Allergies Allergies/Adverse Reactions: Allergies Allergy/AdvReac Type Severity Reaction Status Date / Time No Known Allergies Allergy Verified 12/14/18 13:20 Review of Systems Constitutional: Negative for: Fever, Chills, Weakness, Malaise Eyes: Negative for: Pain ENT: Negative for: Ear Pain, Throat Pain, Throat Swelling Cardiovascular: Positive for: Chest Pain (a few weeks ago intermittently, no cp at this time) Respiratory: Negative for: Shortness of Breath, SOB with Exertion Gastrointestinal: Positive for: Nausea. Negative for: Vomiting, Abdominal Pain, Diarrhea, Constipation Genitourinary Female: Negative for: Dysuria Musculoskeletal: Negative for: Neck Pain, Shoulder Pain, Arm Pain, Back Pain, Hand Pain Neurological: Negative for: Change in Speech, Headache Physical Exam - Physical Exam Appears: Positive for: Well Head Exam: Positive for: NORMAL INSPECTION, NORMOCEPHALIC Skin: Positive for: Normal Color Eye Exam: Positive for: Normal appearance ENT: Positive for: Normal ENT Inspection Neck: Positive for: Normal Cardiovascular/Chest: Positive for: Regular Rate, Rhythm Respiratory: Positive for: Normal Breath Sounds Pulses-Radial (L): 2+ Pulses-Radial (R): 2+ Gastrointestinal/Abdominal: Positive for: Normal Exam Back: Positive for: Normal Inspection Extremity: Positive for: Normal ROM Neurological/Psych: Positive for: Awake, Alert, Normal Tone, Oriented, Motor/Sensory Deficits (dizziness on ambulation ), insecticide sprayer II-XII (intact) - Laboratory Results Result Diagrams: 12/14/18 15:20 12/14/18 16:40 Lab Results: Troponin I < 0.0120 ng/mL (0.00-0.120) 12/14/18 16:40 Total Bilirubin 0.7 mg/dl (0.2-1.3) 12/14/18 16:40 AST 28 U/L (14-36) 12/14/18 16:40 ALT 25 U/L (9-52) 12/14/18 16:40 Alkaline Phosphatase 88 U/L (38-126) 12/14/18 16:40 Total Protein 7.8 G/DL (6.3-8.2) 12/14/18 16:40 Albumin 4.0 g/dL (3.5-5.0) 12/14/18 16:40 Globulin 3.8 gm/dL (2.2-3.9) 12/14/18 16:40 Albumin/Globulin Ratio 1.0 (1.0-2.1) 12/14/18 16:40 Amylase 65 U/L (30-110) 12/14/18 16:40 Urine dip results: Positive for: Blood (trace, otherwise normal ) - ECG ECG Rhythm: Positive for: Normal QRS Rate: 55 O2 Sat by Pulse Oximetry: 99 Pulse Ox Interpretation: Normal - Progress ED Course And Treament: CBC CMP UDIP TROPONIN 0.9NS L ZOFRAN 4MG IV 1750: PT RE-EVALUATED AT THIS TIME. PT REPORTS SHE FEELS BETTER, ON AMBULATION SHE REPORTS DIZZINESS HAS IMPROVED BUT IS BETTER. PT AMBULATING WITH A STEADY GAIT TO THE BATHROOM. DR. PATTERSON CALLED AND NOTIFIED OF CLINICAL FINDINGS. PT MAY BE D/C'D IF PATIENT FEELS BETTER. RECOMMENDED TO GIVEN ANOTHER 500CC OF 0.9N S AND RE-EVAL. 20:00- PT RE-EVALUATED AT THIS TIME, PT IS NOW C/O HEADACHE TO PARIETAL AREA. BLOOD SUGAR IS 359 AND B/P ELEVATED 163/111. CALL OUT TO DR. CONDE FOR POSSIBLE ADMISSION TO ED WITH NEURO CONSULTS. 1L 0.9NS ADDED, LISINOPRIL 20MG, INSULIN [address] HEAD ADDED TO COURSE OF TREATMENT. NEURO EXAM CONTINUES TO BE INTACT. 20:48: DR. ARENAS FAMILY PRACTICE RESIDENT WILL EXAM PT IN ED FOR ADMISSION TO MED/SURG Re-evaluation Time: 17:50 Condition: Re-examined Disposition - Clinical Impression Clinical Impression: Dizziness, Hyperglycemia Discussed With : Savage Arenas Comment: FOR ADMISSION Counseled Patient/Family Regarding: Diagnosis, Need For Followup - Disposition Disposition Time: 20:47 Condition: FAIR - Pt Status Changed To: Hospital Disposition Of: Inpatient - Admit Certification Admit to Inpatient:: After my assessment, the patient will require hospitalization for at least two midnights. This is because of the severity of symptoms shown, intensity of services needed, and/or the medical risk in this patient being treated as an outpatient. - POA Present On Arrival: None
[2018-12-14 19:42] LABS: URINE UROBILINOGEN 0.2 mg/dL (0.2-1.0)
[2018-12-14] MEDS ORDERED: Insulin Regular 100 units/ml SC STA (20:31)
[2018-12-14] MEDS ORDERED: Insulin Regular 100 units/ml ONE (20:43)
[2018-12-14] MEDS ORDERED: Dextrose 50% SYRINGE Inj (50 ml) IV PRN (22:37)
[2018-12-14] MEDS ORDERED: Glucagon Recombinant 1 mg Inj IM PRN (22:37)
[2018-12-14] MEDS ORDERED: Insulin Detemir 100 Units/ml Inj SC ONE (23:00)
--- NOTE | 2018-12-14 23:35 | CP.PCM.HP ---
History of Present Illness - History of Present Illness History of Present Illness: 53 y/o F with a PMHx of DM, HTN , Asthma was sent to ED by PCP due to dizziness and uncontrolled hyperglycemia. Pt complains of severe dizziness since this morning as she woke up. Dizziness is described as bright light on visual field, lightheadedness and king moving, is constant, does NOT aggravate with positional changes and associated with some generalized shakiness. Pt had to stay at bed this morning for >1 hr before going to her PCP appt, during this time, pt vomitted 3 times, non-bloody, non-bilious. At PCP, pt was found with elevated glucose level, and sent to ED due to severe symptoms. --Pt also describes similar milder episodes for the last 2 months, intermittent, once every 1-2 weeks but NO nausea or vomiting were present. --Pt did not apply nighttime insulin last night and only apply short acting insulin this morning. --At moment of this interview, pt reports that dizziness has improved and now considered mild. --Pt denies fever, Hx of migraines, generalized weakness, paresthesia, abdominal pain, change in bowel movement, head trauma, Hx of falls. --Orthostatic BP measurement: 153/94 lying down, 151/89 sitting, 131/76 standing up. HR remained in the 90's PMD: Dr Hicks -NKDA -Meds: As per EMR -PMHx of DM, HTN , Asthma -PSHX: hysterectomy, Right foot surgery, b/L eyes laser. -SHx: Denies tobacco, alcohol or rec drugs. ED course: --VS: within normal limits except for mild tachycardia 90s. --CBC unremarkable, CMP with a BUN of 24-high. --CXR with NO focal consolidation. --Head CT ordered, awaiting final report. Present on Admission - Present on Admission Any Indicators Present on Admission: No Review of Systems - Constitutional Constitutional: absent: Chills, Fatigue, Weakness - EENT Ears: absent: Decreased Hearing, Ear Pain Nose/Mouth/Throat: absent: Nasal Congestion, Nasal Discharge, Nasal Obstruction, Sore Throat, Neck Pain, Neck Mass - Cardiovascular Cardiovascular: absent: Chest Pain, Dyspnea, Leg Edema - Respiratory Respiratory: absent: Cough, Dyspnea, Hemoptysis - Gastrointestinal Gastrointestinal: absent: Abdominal Pain, Bloating, Diarrhea, Nausea, Vomiting - Genitourinary Genitourinary: absent: Dysuria, Hematuria, Urinary Frequency - Musculoskeletal Musculoskeletal: absent: Abnormal Gait, Back Pain, Numbness - Neurological Neurological: absent: Abnormal Hearing, Abnormal Movements Past Patient History - Infectious Disease Hx of Infectious Diseases: None - Past Medical History & Family History Past Medical History?: Yes - Past Social History Alcohol: None Drugs: Denies - CARDIAC Hx Hypertension: Yes - PULMONARY Hx Asthma: Yes - NEUROLOGICAL Hx Neurological Disorder: Yes Other/Comment: NEUROPATHY - HEENT Hx HEENT Problems: No - RENAL Hx Chronic Kidney Disease: No - ENDOCRINE/METABOLIC Hx Endocrine Disorders: Yes Hx Diabetes Mellitus Type 2: Yes - HEMATOLOGICAL/ONCOLOGICAL Hx Blood Disorders: No - INTEGUMENTARY Hx Dermatological Problems: No - MUSCULOSKELETAL/RHEUMATOLOGICAL Hx Musculoskeletal Disorders: Yes - GASTROINTESTINAL Hx Constipation: Yes - GENITOURINARY/GYNECOLOGICAL Hx Genitourinary Disorders: No - PSYCHIATRIC Hx Emotional Abuse: No Hx Physical Abuse: No Hx Substance Use: No - SURGICAL HISTORY Hx Tonsillectomy: Yes - ANESTHESIA Hx Anesthesia: Yes Hx Anesthesia Reactions: No Hx Malignant Hyperthermia: No Meds Allergies/Adverse Reactions: Allergies Allergy/AdvReac Type Severity Reaction Status Date / Time No Known Allergies Allergy Verified 12/14/18 13:20 Physical Exam - Constitutional Appears: Well, No Acute Distress - Head Exam Head Exam: ATRAUMATIC, NORMAL INSPECTION, NORMOCEPHALIC - Eye Exam Eye Exam: EOMI, PERRL. absent: Nystagmus, Scleral icterus Pupil Exam: NORMAL ACCOMODATION - ENT Exam ENT Exam: Mucous Membranes Moist - Neck Exam Neck exam: Positive for: Full Rom, Normal Inspection. Negative for: Lymphadenopathy, Meningismus - Respiratory Exam Respiratory Exam: NORMAL BREATHING PATTERN. absent: Rales, Rhonchi, Wheezes, Respiratory Distress - Cardiovascular Exam Cardiovascular Exam: +S1, +S2 - GI/Abdominal Exam GI & Abdominal Exam: Normal Bowel Sounds, Soft. absent: Distended, Guarding, Rebound, Rigid, Tenderness - Extremities Exam Extremities exam: Positive for: full ROM, normal inspection. Negative for: calf tenderness, joint swelling, pedal edema - Neurological Exam Neurological exam: Alert, CN II-XII Intact, Oriented x3 Additional comments: Romberg's negative. Gait was normal. B/L upper and lower extremities: SILT, strenght 5/5 b/l. - Psychiatric Exam Psychiatric exam: Normal Affect, Normal Mood Results - Vital Signs Recent Vital Signs: Last Vital Signs Temp 98 F 12/14/18 21:59 Pulse 97 H 12/14/18 21:59 Resp 18 12/14/18 21:59 BP 131/76 12/14/18 21:59 Pulse Ox 99 12/14/18 21:59 - Labs Result Diagrams: 12/14/18 15:20 12/14/18 16:40 Labs: Laboratory Results - last 24 hr 12/14/18 12/14/18 12/14/18 13:47 15:20 15:44 WBC 5.0 RBC 5.25 H Hgb 13.2 Hct 41.8 MCV 79.8 L MCH 25.2 L MCHC 31.6 L RDW 14.0 Plt Count 229 MPV 8.6 Neut % (Auto) 57.2 Lymph % (Auto) 32.9 [place] % (Auto) 6.6 Eos % (Auto) 2.6 Baso % (Auto) 0.7 Neut # (Auto) 2.9 Lymph # (Auto) 1.6 [place] # (Auto) 0.3 Eos # (Auto) 0.1 Baso # (Auto) 0.0 Sodium Potassium Chloride Carbon Dioxide Anion Gap BUN Creatinine Est GFR ( Amer) Est GFR (Non-Af Amer) POC Glucose (mg/dL) 209 H 258 H Random Glucose Calcium Total Bilirubin AST ALT Alkaline Phosphatase Troponin I Total Protein Albumin Globulin Albumin/Globulin Ratio Amylase Urine Color Urine Clarity Urine pH Ur Specific [place] Urine Protein Urine Glucose (UA) Urine Ketones Urine Blood Urine Nitrate Urine Bilirubin Urine Urobilinogen Ur Leukocyte Esterase Urine RBC (Auto) Urine Microscopic WBC Ur Squamous Epith Cells Urine Bacteria Hyaline Casts 12/14/18 12/14/18 12/14/18 16:40 19:12 20:23 WBC RBC Hgb Hct MCV MCH MCHC RDW Plt Count MPV Neut % (Auto) Lymph % (Auto) [place] % (Auto) Eos % (Auto) Baso % (Auto) Neut # (Auto) Lymph # (Auto) [place] # (Auto) Eos # (Auto) Baso # (Auto) Sodium 137 Potassium 4.1 Chloride 93 L Carbon Dioxide 30 Anion Gap 18 BUN 24 H Creatinine 0.9 Est GFR ( Amer) > 60 Est GFR (Non-Af Amer) > 60 POC Glucose (mg/dL) 394 H Random Glucose 219 H Calcium 10.0 Total Bilirubin 0.7 AST 28 ALT 25 Alkaline Phosphatase 88 Troponin I < 0.0120 Total Protein 7.8 Albumin 4.0 Globulin 3.8 Albumin/Globulin Ratio 1.0 Amylase 65 Urine Color Yellow Urine Clarity Cloudy Urine pH 5.0 Ur Specific [place] 1.024 Urine Protein 100 Urine Glucose (UA) >=500 Urine Ketones Trace Urine Blood Negative Urine Nitrate Negative Urine Bilirubin Negative Urine Urobilinogen 0.2 Ur Leukocyte Esterase Trace Urine RBC (Auto) 3 Urine Microscopic WBC 9 H Ur Squamous Epith Cells 2 Urine Bacteria Rare Hyaline Casts 6-10 H 12/14/18 21:55 WBC RBC Hgb Hct MCV MCH MCHC RDW Plt Count MPV Neut % (Auto) Lymph % (Auto) [place] % (Auto) Eos % (Auto) Baso % (Auto) Neut # (Auto) Lymph # (Auto) [place] # (Auto) Eos # (Auto) Baso # (Auto) Sodium Potassium Chloride Carbon Dioxide Anion Gap BUN Creatinine Est GFR ( Amer) Est GFR (Non-Af Amer) POC Glucose (mg/dL) 346 H Random Glucose Calcium Total Bilirubin AST ALT Alkaline Phosphatase Troponin I Total Protein Albumin Globulin Albumin/Globulin Ratio Amylase Urine Color Urine Clarity Urine pH Ur Specific [place] Urine Protein Urine Glucose (UA) Urine Ketones Urine Blood Urine Nitrate Urine Bilirubin Urine Urobilinogen Ur Leukocyte Esterase Urine RBC (Auto) Urine Microscopic WBC Ur Squamous Epith Cells Urine Bacteria Hyaline Casts Assessment & Plan - Assessment and Plan (Free Text) Assessment: 53 y/o F with a PMHx of DM, HTN , Asthma admitted for evaluation and management of intractable dizziness and uncontrolled hyperglycemia. PLAN: >Dizziness --Persistent, intractable --Afebrile, VSS. --Long Hx of diabetes, abnormal orthostatic BP measurement. --Unknown etiology, possibly vestibular/neurological/DM complication/BPPV/orthostatic HoTN/multi-factorial --F/U Head CT report --Will initiate trial Meclizine tomorrow if symptomatic. --Considering MRI of brain, neurology consult if persistent. >Uncontrolled IDDM with hyperglycemia --Chronic --Due to poor appetite, will half long-acting insulin dose tonight. --Insulin sliding scale, hypoglycemia protocol --Home meds resumed --F/U glucose level. >HTN --Chronic, controlled --Home meds resumed >DVT prophylaxis --SCDs --Lovenox 40mg SC daily. Case discussed with Dr Kurt Arenas PGY-2. - Date & Time Date: 12/15/18 Time: 00:10
[2018-12-15] MEDS: Insulin Lispro (humaLOG) 100 Units/ml Inj SC SCH ×5 (00:27→13:39)
[2018-12-15] MEDS: Sodium Chloride 0.9% 1,000 ML IV SCH ×2 (00:29→06:12)
[2018-12-15] MEDS ORDERED: Insulin Detemir 100 Units/ml Inj SC SCH ×3 (07:00→22:00)
[2018-12-15 07:21] LABS: BLOOD UREA NITROGEN 16 mg/dl (7-17); CALCIUM 9.1 mg/dL (8.4-10.2); GFR NON-AFRICAN AMERICAN > 60
[2018-12-15 08:16] VITALS: BP 143/85; PULSE 79; RESP 20; TEMP 98; O2SAT 96
[2018-12-15] MEDS ORDERED: Enoxaparin 40 mg Syringe SC SCH (09:00)
[2018-12-15] MEDS ORDERED: Pantoprazole 40 mg EC Tab PO SCH (09:00)
--- NOTE | 2018-12-15 09:01 | CARD ---
APPROVED REPORT Date of service: 12/14/2018 EKG Measurement Heart [id number] <Conclusion> Normal sinus rhythm Normal ECG
--- NOTE | 2018-12-15 10:17 | CT ---
Date of service: 12/14/2018 PROCEDURE: CT HEAD WITHOUT CONTRAST. HISTORY: HEADACHE/DIZZINESS COMPARISON: Comparison made with CT scan brain dated 11/12/2017. TECHNIQUE: Axial computed tomography images were obtained through the head/brain without intravenous contrast. Radiation dose: Total exam DLP = 833.79 mGy-cm. This CT exam was performed using one or more of the following dose reduction techniques: Automated exposure control, adjustment of the mA and/or kV according to patient size, and/or use of iterative reconstruction technique. FINDINGS: HEMORRHAGE: No intracranial hemorrhage. BRAIN: No mass effect or edema. No atrophy or chronic microvascular ischemic changes. VENTRICLES: Unremarkable. No hydrocephalus. CALVARIUM: Unremarkable. PARANASAL SINUSES: Frontal sinuses remain atretic.. MASTOID AIR CELLS: Mastoid air complexes remain slightly underpneumatized right more so than left.. No acute OTHER FINDINGS: None. IMPRESSION: Intracranial hemorrhage..
--- NOTE | 2018-12-15 13:51 | CP.PCM.DIS ---
Provider - Provider Date of Admission: 12/14/18 21:09 Attending physician: Cee Hicks MD Time Spent in preparation of Discharge (in minutes): 25 Diagnosis - Discharge Diagnosis (1) Migraine Status: Chronic Hospital Course - Lab Results Lab Results: Most Recent Lab Values WBC 5.0 K/uL (4.8-10.8) 12/14/18 15:20 RBC 5.25 Mil/uL (3.80-5.20) H 12/14/18 15:20 Hgb 13.2 g/dL (12.0-16.0) 12/14/18 15:20 Hct 41.8 % (34.0-47.0) 12/14/18 15:20 MCV 79.8 fl (81.0-99.0) L 12/14/18 15:20 MCH 25.2 pg (27.0-31.0) L 12/14/18 15:20 MCHC 31.6 g/dL (33.0-37.0) L 12/14/18 15:20 RDW 14.0 % (11.5-14.5) 12/14/18 15:20 Plt Count 229 K/uL (130-400) 12/14/18 15:20 MPV 8.6 fl (7.2-11.7) 12/14/18 15:20 Neut % (Auto) 57.2 % (50.0-75.0) 12/14/18 15:20 Lymph % (Auto) 32.9 % (20.0-40.0) 12/14/18 15:20 [place] % (Auto) 6.6 % (0.0-10.0) 12/14/18 15:20 Eos % (Auto) 2.6 % (0.0-4.0) 12/14/18 15:20 Baso % (Auto) 0.7 % (0.0-2.0) 12/14/18 15:20 Neut # (Auto) 2.9 K/uL (1.8-7.0) 12/14/18 15:20 Lymph # (Auto) 1.6 K/uL (1.0-4.3) 12/14/18 15:20 [place] # (Auto) 0.3 K/uL (0.0-0.8) 12/14/18 15:20 Eos # (Auto) 0.1 K/uL (0.0-0.7) 12/14/18 15:20 Baso # (Auto) 0.0 K/uL (0.0-0.2) 12/14/18 15:20 Sodium 137 mmol/l (132-148) 12/15/18 05:45 Potassium 3.8 MMOL/L (3.6-5.0) 12/15/18 05:45 Chloride 99 mmol/L (98-107) 12/15/18 05:45 Carbon Dioxide 27 mmol/L (22-30) 12/15/18 05:45 Anion Gap 15 (10-20) 12/15/18 05:45 BUN 16 mg/dl (7-17) 12/15/18 05:45 Creatinine 0.6 mg/dl (0.7-1.2) L 12/15/18 05:45 Est GFR ( Amer) > 60 12/15/18 05:45 Est GFR (Non-Af Amer) > 60 12/15/18 05:45 POC Glucose (mg/dL) 167 mg/dL (65-110) H 12/15/18 13:42 Random Glucose 261 mg/dL (65-105) H 12/15/18 05:45 Calcium 9.1 mg/dL (8.4-10.2) 12/15/18 05:45 Total Bilirubin 0.7 mg/dl (0.2-1.3) 12/14/18 16:40 AST 28 U/L (14-36) 12/14/18 16:40 ALT 25 U/L (9-52) 12/14/18 16:40 Alkaline Phosphatase 88 U/L (38-126) 12/14/18 16:40 Troponin I < 0.0120 ng/mL (0.00-0.120) 12/14/18 16:40 Total Protein 7.8 G/DL (6.3-8.2) 12/14/18 16:40 Albumin 4.0 g/dL (3.5-5.0) 12/14/18 16:40 Globulin 3.8 gm/dL (2.2-3.9) 12/14/18 16:40 Albumin/Globulin Ratio 1.0 (1.0-2.1) 12/14/18 16:40 Amylase 65 U/L (30-110) 12/14/18 16:40 Urine Color Yellow (YELLOW) 12/14/18 19:12 Urine Clarity Cloudy (Clear) 12/14/18 19:12 Urine pH 5.0 (5.0-8.0) 12/14/18 19:12 Ur Specific [place] 1.024 (1.003-1.030) 12/14/18 19:12 Urine Protein 100 mg/dL (NEGATIVE) 12/14/18 19:12 Urine Glucose (UA) >=500 mg/dL (NEGATIVE) 12/14/18 19:12 Urine Ketones Trace mg/dL (NEGATIVE) 12/14/18 19:12 Urine Blood Negative (NEGATIVE) 12/14/18 19:12 Urine Nitrate Negative (NEGATIVE) 12/14/18 19:12 Urine Bilirubin Negative (NEGATIVE) 12/14/18 19:12 Urine Urobilinogen 0.2 mg/dL (0.2-1.0) 12/14/18 19:12 Ur Leukocyte Esterase Trace [place]/uL (Negative) 12/14/18 19:12 Urine RBC (Auto) 3 /hpf (0-3) 12/14/18 19:12 Urine Microscopic WBC 9 /hpf (0-5) H 12/14/18 19:12 Ur Squamous Epith Cells 2 /hpf (0-5) 12/14/18 19:12 Urine Bacteria Rare (<OCC) 12/14/18 19:12 Hyaline Casts 6-10 /hpf (0-2) H 12/14/18 19:12 - Hospital Course Hospital Course: 53 yo female with PMHx of DM, HTN asthma sent to ED by PCP due to dizziness and uncontrolled hyperglycemia. Patient was admitted for further evaluation and treatment. in the ED Pt vitals WNL except for tachycardia 90s CBC unremarkable, CMP WNL except Bun 24H Chest Xray: WNL Ct head scan no acute disease, no hemorrhage noted. During her stay in the hospital Patient was initiated on Meclizine, Glucose was monitored and she was placed on Insulin sliding scale with hypoglycemia protocol. Home medication were resumed. Her vitals were monitored Q4. Patient was seen and examined today, patient report that her dizziness have improved, she denies any nausea, vomiting, chest pain sob, abdominal pain diarrhea, constipation. * Patient described that during her dizziness episode she notes white flashes, which may be caused by migraine. Patient will be discharged on Propanolol 20 mg BID, and to follow up with Dr. Hicks on 12/23/18 at 8:20 Am Patient was education about diagnosis given ER Precaution given. Patient labs and chart were reviewed patient is clear to be discharge home, and follow up with PCP Discharge Exam - Head Exam Head Exam: ATRAUMATIC, NORMAL INSPECTION, NORMOCEPHALIC - Eye Exam Eye Exam: EOMI, Normal appearance, PERRL Pupil Exam: NORMAL ACCOMODATION, PERRL - Respiratory Exam Respiratory Exam: Clear to PA & Lateral, NORMAL BREATHING PATTERN, UNREMARKABLE - Cardiovascular Exam Cardiovascular Exam: REGULAR RHYTHM, +S1 - GI/Abdominal Exam GI & Abdominal Exam: Normal Bowel Sounds, Unremarkable - Rectal Exam Rectal Exam: NORMAL INSPECTION - Extremities Exam Extremities exam: normal inspection - Neurological Exam Neurological exam: Alert, CN II-XII Intact, Normal Gait, Oriented x3, Reflexes Normal - Psychiatric Exam Psychiatric exam: Normal Affect, Normal Mood - Skin Skin Exam: Dry, Intact, Normal Color, Warm Discharge Plan - Discharge Medications Prescriptions: Propranolol [Inderal] 20 mg PO Q12H #60 tab - Follow Up Plan Condition: FAIR Disposition: HOME/ ROUTINE Instructions: Hyperglycemia, Adult (DC), Blood Glucose Monitoring, Dizziness, Nonvertigo, (DC) Additional Instructions: follow up with your primary MD 1 week Referrals: Cee Hicks MD [Family Provider] -
== END 2018-12-15 15:00 | disposition home or self-care (01) | DRG 103 ==
LOC: H.ER 13:18 → H.ERHOLD 21:09 → H.MEDSURG1 23:25
PROVIDERS: ADMIT Family Medicine; ATTEND Family Medicine
DX: G43.709 Chronic migraine without aura, not intractable, without status migrainosus (principal); E11.65 Type 2 diabetes mellitus with hyperglycemia; Z79.4 Long term (current) use of insulin; I10 Essential (primary) hypertension; J45.909 Unspecified asthma, uncomplicated; E11.42 Type 2 diabetes mellitus with diabetic polyneuropathy

== ENCOUNTER 2019-01-14 20:37 | Emergency (ER) | payer OTHER ==
[2019-01-14 20:37] VITALS: BMI 28.9
[2019-01-14 20:44] VITALS: O2SAT 97
[2019-01-14 21:46] LABS: BASO % 0.5 % (0.0-2.0); EOS # 0.1 K/uL (0.0-0.7); HEMOGLOBIN 12.9 g/dL (12.0-16.0); LYMPH # 2.8 K/uL (1.0-4.3); LYMPH % 31.4 % (20.0-40.0); MEAN CELL VOLUME 78.6 fl (81.0-99.0); MEAN CORPUSCULAR HEMOGLOBIN 26.2 pg (27.0-31.0); MEAN CORPUSCULAR HGB CONC 33.4 g/dL (33.0-37.0); MEAN PLATELET VOLUME 8.3 fl (7.2-11.7); MONO # 0.4 K/uL (0.0-0.8); NEUT # 5.5 K/uL (1.8-7.0); NEUT % 62.1 % (50.0-75.0); NRBC % 0.1 % (0.0-0.0); RBC 4.93 Mil/uL (3.80-5.20); RED CELL DISTRIBUTION WIDTH 13.5 % (11.5-14.5); WHITE BLOOD COUNT 8.9 K/uL (4.8-10.8)
--- NOTE | 2019-01-14 21:56 | CP.PCM.CON ---
History of Present Illness - History of Present Illness History of Present Illness: Podiatry consult note for Dr. Aiken, 53 year old female with PMHx of Type II DM and HTN presents to the ED due to complaints of pain and ulceration to her left hallux. Patient states she developed a blister over the weekend. Patient states she thought there was a foreign body, which she removed with tweezers at home, and then subsequently developed this wound. PAtient notes serous drainage when she popped the blister at home. Patient does complain of numbness and tingling due to her diabetes. Patient came to the ED today due to increased erythema and edema traveling up her leg. PAtient performed a betadine dressing, epsom soaks, elevation at home. She denies any fever or chills. PMD: Petra Hicks Review of Systems - Review of Systems All systems: reviewed and no additional remarkable complaints except Review of Systems: As per HPI Past Patient History - Infectious Disease Hx of Infectious Diseases: None - Past Medical History & Family History Past Medical History?: Yes - Past Social History Smoking Status: Never Smoked - CARDIAC Hx Hypertension: Yes - PULMONARY Hx Asthma: Yes - NEUROLOGICAL Hx Neurological Disorder: Yes Other/Comment: NEUROPATHY - HEENT Hx HEENT Problems: No - RENAL Hx Chronic Kidney Disease: No - ENDOCRINE/METABOLIC Hx Endocrine Disorders: Yes Hx Diabetes Mellitus Type 2: Yes - HEMATOLOGICAL/ONCOLOGICAL Hx Blood Disorders: No - INTEGUMENTARY Hx Dermatological Problems: No - MUSCULOSKELETAL/RHEUMATOLOGICAL Hx Musculoskeletal Disorders: Yes - GASTROINTESTINAL Hx Constipation: Yes - GENITOURINARY/GYNECOLOGICAL Hx Genitourinary Disorders: No - PSYCHIATRIC Hx Emotional Abuse: No Hx Physical Abuse: No Hx Substance Use: No - SURGICAL HISTORY Hx Tonsillectomy: Yes - ANESTHESIA Hx Anesthesia: Yes Hx Anesthesia Reactions: No Hx Malignant Hyperthermia: No Meds Allergies/Adverse Reactions: Allergies Allergy/AdvReac Type Severity Reaction Status Date / Time No Known Allergies Allergy Verified 01/14/19 20:44 Physical Exam - Constitutional Appears: Well, Non-toxic, No Acute Distress - Head Exam Head Exam: ATRAUMATIC, NORMOCEPHALIC - Extremities Exam Additional comments: Bilateral Lower Extremity Edema VASC: DP and PT 2/4 bilaterally, CFT less than 3 seconds X 10, + non-pitting edema to the left foot and left leg, TG warm to warm on the L, when compared to the contralateral side NEURO: diminished sensation to the digits DERM: 3 cm X 2.3 cm X 0.1 cm wound to the plantar medial aspect of the left hallux, macerated wound edges, no drainage, 50% Necrotic base with 50% mixed fibrogranular base, positive erythema jh-wound, no drainage, no probe to bone, no malodor, no crepitus or fluctuance noted ORTHO: pain on palpation to the base of the hallux at the 1st MTPJ, diffuse pain on palpation to the left foot, pain on calf squeeze, no other obvious defo rmities, MSK 5/5 with no pain - Neurological Exam Neurological exam: Alert, Oriented x3 - Psychiatric Exam Psychiatric exam: Normal Affect, Normal Mood Results - Vital Signs Recent Vital Signs: Last Vital Signs Temp 98.5 F 01/14/19 20:41 Pulse 112 H 01/14/19 20:41 Resp 17 01/14/19 20:41 BP 171/93 H 01/14/19 20:41 Pulse Ox 97 01/14/19 20:41 - Labs Result Diagrams: 01/14/19 21:30 01/14/19 21:30 Labs: Laboratory Results - last 24 hr 01/14/19 21:12 POC Glucose (mg/dL) 91 Assessment & Plan - Assessment and Plan (Free Text) Assessment: 53 y/o female seen and evaluated for left hallux wound Plan: Patient seen and evaluated Plan discussed with Dr. Aiken Chart, labs and vitals reviewed- afebrile, absent leukocytosis WBC at 8.9 Left Foot X-ray: no signs of osteomyelitis note, no acute findings ESR 95, CRP Pending Patient wound debrided with a sterile #15 blade Patient wound cleaned with saline and dressed with xeroform, DSD Provided a surgical shoe for left foot Rx for Bactrim PO BID 10 days Patient instructed to keep dressing clean, dry and intact, and to follow up with Dr. Aiken on Thursday in Clinic Patient educated on clinical signs of infection and to immediately return to ED if present Patient demonstrated verbal understanding
[2019-01-14 22:00] LABS: INR 0.9; PROTHROMBIN TIME 10.5 Seconds (9.8-13.1)
[2019-01-14 22:01] LABS: ALB/GLOB RATIO 0.9 (1.0-2.1); ALBUMIN 4.1 g/dL (3.5-5.0); ALT/SGPT 13 U/L (9-52); AST/SGOT 22 U/L (14-36); BLOOD UREA NITROGEN 14 mg/dl (7-17); CALCIUM 9.6 mg/dL (8.4-10.2); GFR NON-AFRICAN AMERICAN > 60
[2019-01-14 22:02] LABS: PARTIAL THROMBOPLASTIN TIME 31.8 Seconds (25.6-37.1)
--- NOTE | 2019-01-14 22:07 | ED PDOC ---
Lower Extremity Pain/Injury Time Seen by Provider: 01/14/19 21:00 Chief Complaint (Nursing): Lower Extremity Problem/Injury Chief Complaint (Provider): Lower Extremity Problem/Injury History Per: Patient History/Exam Limitations: no limitations Onset/Duration Of Symptoms: Days (x5) Additional Complaint(s): 53 year old female presents to the ED with left toe infection since Thursday evening. Patient saw that she has a swollen blister on left toe. She has difficulty feeling her feet because of diabetic neuropathy so she does not know how long it has been there. She believes there was a foreign body that she removed with tweezers. When she removed that part, a lot of fluid came out of blister. She felt like there was more so she cut open blister with sterile scissors she had at home and put betadine on it. She thought it was better until she noticed swelling on the forefoot which spread to her ankle and leg over the course of the day. She denies any fever or chills. PMD: Petra Hicks Past Medical History Reviewed: Historical Data, Nursing Documentation, Vital Signs Vital Signs: Last Vital Signs Temp 98.5 F 01/14/19 20:41 Pulse 112 H 01/14/19 20:41 Resp 17 01/14/19 20:41 BP 171/93 H 01/14/19 20:41 Pulse Ox 97 01/14/19 20:41 - Medical History PMH: Asthma, Diabetes (insulin dependant, uncontrolled), HTN Denies: HIV, Chronic Kidney Disease - Surgical History Surgical History: Tonsillectomy - Family History Family History: States: Unknown Family Hx, Diabetes, Hypertension - Home Medications Home Medications: Ambulatory Orders Medication Instructions Recorded Lisinopril/Hydrochlorothiazide 1 tab PO DAILY 01/30/16 [Lisinopril-Hctz 20-25 mg Tab] Aspirin [Aspirin Chewable] 81 mg PO DAILY 12/14/18 Atorvastatin [Lipitor] 20 mg PO DAILY 12/14/18 Fluticasone Nasal [Flonase] 1 spr NS DAILY 12/14/18 Insulin Aspart [Novolog Flexpen] 8 units SC ACHS 12/14/18 Insulin Glargine,Hum.rec.anlog 36 units SC HS 12/14/18 [Lantus Solostar] Insulin Glargine,Hum.rec.anlog 40 units SC QAM 12/14/18 [Lantus Solostar] Linaclotide [Linzess] 1 cap PO DAILY 12/14/18 Montelukast Sodium [Singulair] 10 mg PO QPM 12/14/18 Omeprazole 40 mg PO DAILY 12/14/18 amLODIPine [Norvasc] 10 mg PO DAILY 12/14/18 Aspirin [Ecotrin] 81 mg PO DAILY tabec 12/15/18 Atorvastatin [Lipitor] 20 mg PO DAILY tab 12/15/18 Dextrose Oral [Glutose 15] 0 gm PO ONCE PRN tube 12/15/18 Insulin Detemir [Levemir] 36 units SC HS vial 12/15/18 Meclizine [Antivert] 12.5 mg PO BID PRN tab 12/15/18 Montelukast [Singulair] 10 mg PO DAILY tab 12/15/18 Pantoprazole [Protonix EC Tab] 40 mg PO DAILY ect 12/15/18 Propranolol [Inderal] 20 mg PO Q12H #60 tab 12/15/18 amLODIPine [Norvasc] 10 mg PO DAILY tab 12/15/18 hydroCHLOROthiazide [Hydrodiuril] 25 mg PO DAILY tab 12/15/18 Sulfamethoxazole/Trimethoprim 1 tab PO BID #20 tab 01/15/19 [Bactrim DS 800 mg-160 mg] - Allergies Allergies/Adverse Reactions: Allergies Allergy/AdvReac Type Severity Reaction Status Date / Time No Known Allergies Allergy Verified 01/14/19 20:44 Review of Systems ROS Statement: Except As Marked, All Systems Reviewed And Found Negative Musculoskeletal: Positive for: Other (left toe infection) Physical Exam - Reviewed Nursing Documentation Reviewed: Yes Vital Signs Reviewed: Yes - Physical Exam Appears: Positive for: Non-toxic, No Acute Distress Head Exam: Positive for: ATRAUMATIC, NORMOCEPHALIC Skin: Positive for: Warm, Dry Eye Exam: Positive for: EOMI, PERRL Cardiovascular/Chest: Positive for: Tachycardia. Negative for: Murmur Respiratory: Negative for: Respiratory Distress Back: Positive for: Normal Inspection. Negative for: Decreased ROM Extremity: Positive for: Other (Left great toe: diffusely edematous with large ulceration white eschar and edema of forefoot, dorsum of forefoot, ankle and lower leg with calf tenderness ) Lymphatic: Negative for: Adenopathy Neurological/Psych: Positive for: Awake, Alert, Oriented - Laboratory Results Result Diagrams: 01/14/19 21:30 01/14/19 21:30 Lab Results: PT 10.5 Seconds (9.8-13.1) 01/14/19 21:30 INR 0.9 01/14/19 21:30 APTT 31.8 Seconds (25.6-37.1) 01/14/19 21:30 Total Bilirubin 0.5 mg/dl (0.2-1.3) 01/14/19 21:30 AST 22 U/L (14-36) 01/14/19 21:30 ALT 13 U/L (9-52) 01/14/19 21:30 Alkaline Phosphatase 126 U/L (38-126) D 01/14/19 21:30 Total Protein 8.5 G/DL (6.3-8.2) H 01/14/19 21:30 Albumin 4.1 g/dL (3.5-5.0) 01/14/19 21: Globulin 4.4 gm/dL (2.2-3.9) H 01/14/19 21:30 Albumin/Globulin Ratio 0.9 (1.0-2.1) L 01/14/19 21:30 - ECG O2 Sat by Pulse Oximetry: 97 (RA) Pulse Ox Interpretation: Normal - Progress Re-evaluation Time: 00:20 Condition: Re-examined (tachycardia. pt reports she is currently undergoing workup for this and has echo scheduled for thursday for evaluatuion of this.) Medical Decision Making Medical Decision Making: Time: 2100 Impression: left foot infection Plan: --Type and screen --CMP --CRP --Magnesium --Phosphorus --Podiatry consult --U dip --CBC --ESR --PTT --PT/INR --Glucose --Blood culture --Wound culture and gram stain --Left foot XR --US duplex Time: 0 --Discussed case with Podiatry resident, Dr. Wei, who came down to evaluate patient in ED. Disposition pending ED workup. EXAM: US for Deep Venous Thrombosis, left Lower Extremity. CLINICAL HISTORY: Lt leg swelling. TECHNIQUE: Real-time ultrasound scan of the veins of the left lower extremity with color Doppler flow, spectral waveform analysis and compression. COMPARISON: None provided. FINDINGS: DEEP VEINS: The common femoral, superficial femoral, and popliteal veins are echolucent and compressible. There is normal color Doppler flow throughout. The visualized calf veins appear patent. SUPERFICIAL VEINS: The visualized greater saphenous vein is patent. SOFT TISSUES: No popliteal fossa cyst or other abnormalities. IMPRESSION: No deep venous thrombosis evident on left lower extremity examination. Electronically signed on Jan 15, 2019 12:13:56 AM EDT by: Yu Celestin M.D., Certified by PONCHO LOPEZ, Neuroradiology Evaluated by Podiatry in ER. Stable for discharge with followup podiatry. DW pt findings and plan of care. Pt eager to go home. ---- ScribeAttestation: Documented byYeimy Lopez, acting as a scribe for Adina Garcia MD. Provider ScribeAttestation: All medical record entries made by the Scribe were at my direction and personally dictated by me. I have reviewed the chart and agree that the record accurately reflects my personal performance of the history, physical exam, medical decision making, and the department course for this patient. I have also personally directed, reviewed, and agree with the discharge instructions and disposition. Disposition - Clinical Impression Clinical Impression: Foot infection - Disposition Disposition: Routine/Home Disposition Time: 00:30 Condition: STABLE Additional Instructions: FOLLOWUP ON THURSDAY WITH PODIATRY Prescriptions: Sulfamethoxazole/Trimethoprim [Bactrim DS 800 mg-160 mg] 1 tab PO BID #20 tab Instructions: Diabetic Foot Ulcer (DC), Wound Infection Forms: [facility] ED School/Work Excuse
[2019-01-14] MEDS ORDERED: Potassium Chloride 20 mEq ER Tab PO STA (22:54)
[2019-01-14] MEDS ORDERED: Potassium Chloride 20 mEq ER Tab PO ONE (23:08)
[2019-01-14 23:54] VITALS: BP 155/86; PULSE 106; RESP 16; TEMP 98.4
[2019-01-15] MEDS ORDERED: Tmp-Smz 800 mg-160 mg DS Tab PO STA (00:08)
[2019-01-15] MEDS ORDERED: Tmp-Smz 800 mg-160 mg DS Tab ONE (00:26)
--- NOTE | 2019-01-15 08:54 | US ---
Date of service: 01/14/2019 HISTORY: LEFT swelling. PRIORS: None. FINDINGS: 2-D, color and duplex Doppler analysis of the lower extremity venous circulation using routine protocol from the femoral veins through the popliteal veins. Venous compressibility: Normal. Flow and augmentation patterns: Normal. Visualized veins upper third of calf: Normal. Garza cyst: None. Note is made of a 3 centimeter x 0.7 centimeter x 1.5 centimeter left groin lymph node. IMPRESSION: No sonographic or Doppler evidence for DVT in left lower extremity.
--- NOTE | 2019-01-15 09:39 | RAD ---
Date of service: 01/14/2019 PROCEDURE: Left Foot Radiographs. HISTORY: LEFT great toe ulcer/infection COMPARISON: 11/07/2015 TECHNIQUE: 3 views obtained. FINDINGS: BONES: No bony irregularity or bone destruction is seen. No erosions or periosteal reaction is identified. No fracture is seen. Phalanges are intact. Tarsal bones are unremarkable. Subtalar joint is within normal limits. JOINTS: See above. SOFT TISSUES: There is mild soft tissue swelling and/or edema of the left 1st digit. No radiopaque foreign body is seen. No definite air is seen in the soft tissues. OTHER FINDINGS: None. IMPRESSION: No plain film evidence of osteomyelitis. If there is strong clinical concern bone scan or MRI could be obtained. No preliminary report was provided by the emergency room physician. Therefore this case will be placed in the PA review folder.
== END 2019-01-15 00:45 | disposition home or self-care (01) ==
LOC: H.ER 20:37
DX: L08.89 Other specified local infections of the skin and subcutaneous tissue (principal); L97.529 Non-pressure chronic ulcer of other part of left foot with unspecified severity; J45.909 Unspecified asthma, uncomplicated; E11.621 Type 2 diabetes mellitus with foot ulcer; I10 Essential (primary) hypertension; Z79.4 Long term (current) use of insulin

== ENCOUNTER 2019-01-19 15:49 | Inpatient (IN) | payer OTHER ==
[2019-01-19 15:49] VITALS: BMI 28.3
[2019-01-19] MEDS ORDERED: Piperacillin/Tazobact 4.5 GM in Sodium Chloride 0.9% 100 ML IVPB STA (16:41)
--- NOTE | 2019-01-19 16:53 | CP.PCM.CON ---
History of Present Illness - History of Present Illness History of Present Illness: Podiatry consult note for Dr. Aiken: 53 year old female with PMH of Type II DM and HTN seen and evaluated in the ED for pain and ulceration to her left hallux. Patient states she developed a blister about 10 days ago. Patient states she thought there was a foreign body in her left big toe, which she removed with tweezers at home, and then subsequently developed this wound. Patient notes serous drainage when she popped the blister at home. Patient states that she came to the ED on thursday where she was seen. Patient states that she discharged home on PO Abx. Patient states that she kept using the Abx and change the toe dressing but it got worse. She states that her left leg is also painful at her calf. Patient does complain of numbness and tingling due to her diabetes. Patient states that she was seen earlier today in the podiatry clinic which sent her to the ED. Patient denies nay other pedal complaint at this time. She denies any recent fever, nausea, vomiting, SOB or chills. PMH: Type II DM and HTN, Arrhythmia. PSH: Hysterectomy and R foot surgery. Allergies: NKDA. Social Hx: Denies smoking, EtOH use or illicit drug use. Review of Systems - Review of Systems Review of Systems: As per HPI - Constitutional Constitutional: As Per HPI Past Patient History - Infectious Disease Hx of Infectious Diseases: None - Past Medical History & Family History Past Medical History?: Yes - Past Social History Smoking Status: Never Smoked - CARDIAC Hx Hypercholesterolemia: Yes Hx Hypertension: Yes - PULMONARY Hx Asthma: Yes - NEUROLOGICAL Hx Neurological Disorder: Yes Other/Comment: NEUROPATHY - HEENT Hx HEENT Problems: No - RENAL Hx Chronic Kidney Disease: No - ENDOCRINE/METABOLIC Hx Endocrine Disorders: Yes Hx Diabetes Mellitus Type 2: Yes - HEMATOLOGICAL/ONCOLOGICAL Hx Human Immunodeficiency Virus (HIV): No - INTEGUMENTARY Hx Dermatological Problems: No - MUSCULOSKELETAL/RHEUMATOLOGICAL Hx Musculoskeletal Disorders: Yes - GASTROINTESTINAL Hx Constipation: Yes - GENITOURINARY/GYNECOLOGICAL Hx Genitourinary Disorders: No - PSYCHIATRIC Hx Emotional Abuse: No Hx Physical Abuse: No Hx Substance Use: No - SURGICAL HISTORY Hx Tonsillectomy: Yes - ANESTHESIA Hx Anesthesia: Yes Hx Anesthesia Reactions: No Hx Malignant Hyperthermia: No Meds Allergies/Adverse Reactions: Allergies Allergy/AdvReac Type Severity Reaction Status Date / Time No Known Allergies Allergy Verified 01/19/19 16:07 - Medications Medications: Current Medications Vancomycin HCl 1 gm/ Sodium (Chloride) 250 mls @ 166.667 mls/hr IVPB STAT STA; Protocol Stop: 01/19/19 18:10 Piperacillin Sod/Tazobactam (Sod 4.5 gm/ Sodium Chloride) 100 mls @ 100 mls/hr IVPB STAT STA; Protocol Stop: 01/19/19 17:40 Physical Exam - Constitutional Appears: Well, Non-toxic, No Acute Distress - Head Exam Head Exam: ATRAUMATIC, NORMOCEPHALIC - Extremities Exam Additional comments: Bilateral Lower Extremity focused exam: VASC: DP and PT 2/4 bilaterally, Cap refill < 3 seconds X 10, Moderate non- pitting edema to the left foot and left leg, Temp gradient warm to warmer on the left and warm to cool to the right. NEURO: Diminished gross and protective sensations b/l. DERM: An oval ulcer noted 3.5 cm X 2.5 cm X 0.3 cm wound to the plantar medial aspect of the left hallux, macerated wound edges, 50% Necrotic base with 50% mixed fibrogranular base, positive erythema jh-wound, positive purulent drainage, no probe to bone, no malodor, no crepitus. MSK: Mild pain on palpation to the base of the hallux at the 1st MTPJ, Pain on calf squeeze, no other obvious deformities, MMT 5/5 to all groups. - Neurological Exam Neurological exam: Alert, Oriented x3 - Psychiatric Exam Psychiatric exam: Normal Affect, Normal Mood Results - Vital Signs Recent Vital Signs: Last Vital Signs Temp 98.6 F 01/19/19 16:07 Pulse 98 H 01/19/19 16:07 Resp 16 01/19/19 16:07 BP 164/93 H 01/19/19 16:07 Pulse Ox 98 01/19/19 16:07 - Labs Labs: Laboratory Results - last 24 hr 01/19/19 16:43 POC Glucose (mg/dL) 447 H* Assessment & Plan - Assessment and Plan (Free Text) Assessment: 53 year old female with PMH of Type II DM and HTN seen and evaluated in the ED for infected ulceration to her left hallux. Plan: Patient seen and evaluated. Plan discussed with Dr Aiken. Charts and vitals reviewed. Ordered CBC, ESR and CRP. Ordered Left foot X-ray. Collected and ordered wound culture. Patient to be admitted by the primary team. Patient received a stat dose of IV abx in the ED. Ordered MRI left foot. Ordered SHERRY/PVR LE. Podiatry will continue to follow up the patient while in house. - Date & Time Date: 01/19/19 (t) Time: 17:01
--- NOTE | 2019-01-19 16:59 | ED PDOC ---
Lower Extremity Pain/Injury Time Seen by Provider: 01/19/19 16:05 Chief Complaint (Nursing): Wound Check Chief Complaint (Provider): Left Hallux Ulceration History Per: Patient History/Exam Limitations: no limitations Onset/Duration Of Symptoms: Days (x10) Current Symptoms Are (Timing): Still Present Additional Complaint(s): 53 year old female with pmhx diabetes and htn presents to the ED for evaluation of a painful ulcer to her left hallux that developed ten days ago beginning as a blister. Six days ago, patient states she came to this ED for her symptoms where she was given Bactrim PO and told to follow up in podiatry clinic. She notes the Bactrim did not help and ulcer worsened, so she went to the clinic today where she was sent here for admission for IV antibiotics. Denies fever and chills. PMD: [employer] Ship: [employer] Past Medical History Reviewed: Historical Data, Nursing Documentation, Vital Signs Vital Signs: Last Vital Signs Temp 98.6 F 01/19/19 16:07 Pulse 98 H 01/19/19 16:07 Resp 16 01/19/19 16:07 BP 164/93 H 01/19/19 16:07 Pulse Ox 98 01/19/19 16:07 - Medical History PMH: Asthma, Diabetes (insulin dependant, uncontrolled), HTN, Hypercholesterolemia Denies: HIV, Chronic Kidney Disease - Surgical History Surgical History: Tonsillectomy Other surgeries: hysterectomy; right foot surgery - Family History Family History: States: Diabetes, Hypertension - Social History Current smoker - smoking cessation education provided: No Alcohol: None Drugs: Denies - Immunization History Hx Tetanus Toxoid Vaccination: No Hx Influenza Vaccination: Yes Hx Pneumococcal Vaccination: No - Home Medications Home Medications: Ambulatory Orders Medication Instructions Recorded Lisinopril/Hydrochlorothiazide 1 tab PO DAILY 01/30/16 [Lisinopril-Hctz 20-25 mg Tab] Aspirin [Aspirin Chewable] 81 mg PO DAILY 12/14/18 Atorvastatin [Lipitor] 20 mg PO DAILY 12/14/18 Fluticasone Nasal [Flonase] 1 spr NS DAILY 12/14/18 Insulin Aspart [Novolog Flexpen] 8 units SC ACHS 12/14/18 Linaclotide [Linzess] 1 cap PO DAILY 12/14/18 Montelukast Sodium [Singulair] 10 mg PO QPM 12/14/18 Omeprazole 40 mg PO DAILY 12/14/18 amLODIPine [Norvasc] 10 mg PO DAILY 12/14/18 Aspirin [Ecotrin] 81 mg PO DAILY tabec 12/15/18 Dextrose Oral [Glutose 15] 0 gm PO ONCE PRN tube 12/15/18 Meclizine [Antivert] 12.5 mg PO BID PRN tab 12/15/18 Propranolol [Inderal] 20 mg PO Q12H #60 tab 12/15/18 Sulfamethoxazole/Trimethoprim 1 tab PO BID #20 tab 01/15/19 [Bactrim DS 800 mg-160 mg] Insulin Glargine,Hum.rec.anlog 15 unit SQ HS 01/19/19 [Lantus Solostar] Insulin Glargine,Hum.rec.anlog 15 unit SQ QAM 01/19/19 [Lantus Solostar] - Allergies Allergies/Adverse Reactions: Allergies Allergy/AdvReac Type Severity Reaction Status Date / Time No Known Allergies Allergy Verified 01/19/19 16:07 Review of Systems ROS Statement: Except As Marked, All Systems Reviewed And Found Negative Constitutional: Negative for: Fever, Chills Musculoskeletal: Positive for: Other (ulcer on left hallux) Physical Exam - Reviewed Nursing Documentation Reviewed: Yes Vital Signs Reviewed: Yes - Physical Exam Appears: Positive for: Well Skin: Positive for: Normal Color Neck: Positive for: Normal Cardiovascular/Chest: Positive for: Regular Rate, Rhythm Respiratory: Positive for: Normal Breath Sounds Gastrointestinal/Abdominal: Positive for: Normal Exam Extremity: Positive for: Normal ROM, Other (left toe hallux with ulceration with open wound, neurovascular intact) Neurological/Psych: Positive for: Awake, Alert - Laboratory Results Result Diagrams: 01/19/19 19:38 01/19/19 19:38 - ECG O2 Sat by Pulse Oximetry: 98 (RA) Pulse Ox Interpretation: Normal Medical Decision Making Medical Decision Making: Time: 164 Initial Impression: ulceration to left hallux rule out osteomyelitis Initial Plan: --CMP --CRP --ESR --Accucheck --Vancomycin 1gm in NS IVPB --Zosyn 4.5gm in NS IVPB --Blood culture --Wound culture --Left foot XR --Will admit patient under Dr. Cee Hicks Accucheck: [phone] XR FINDINGS: BONES: No fracture seen. Along the medial aspect of the great toe distal phalanx bordering the interphalangeal joint a small cystic area is seen with ill definition to the thin cortex here. Here there are soft tissue changes compatible with focal infection. Findings are concerning for focal osteomyelitis here. JOINTS: Normal. SOFT TISSUES: Soft tissue swelling. Overlying bandage-great toe. Atherosclerotic vascular calcifications present. OTHER FINDINGS: None. IMPRESSION: Findings concerning for small osteomyelitis focus medial aspect great toe distal phalanx as above. Contiguous regional soft tissue changes compatible with infection/cellulitis. [address] Hicks primary doctor who accepted patient for admission. She requested family practice resident evaluate patient in ED. they came to see pt. podiatry resident aware and at bedside throughout pt agreeabel to plan. Scribe Attestation: Documented by Helena Espino, acting as a scribe for Levar Roberts MD. Provider Scribe Attestation: All medical record entries made by the Scribe were at my direction and personally dictated by me. I have reviewed the chart and agree that the record accurately reflects my personal performance of the history, physical exam, medical decision making, and the department course for this patient. I have also personally directed, reviewed, and agree with the discharge instructions and disposition. Disposition - Clinical Impression Clinical Impression: Foot infection - Patient ED Disposition Is Patient to be Admitted: Yes Counseled Patient/Family Regarding: Studies Performed, Diagnosis - Disposition Disposition Time: 17:35 Condition: STABLE
--- NOTE | 2019-01-19 17:12 | RAD ---
PROCEDURE: Radiographs of the left great toe. TECHNIQUE:: AP radiograph of the left foot, with oblique and lateral view of the left great toe. 3 view obtained. COMPARISON: None. FINDINGS: BONES: No fracture seen. Along the medial aspect of the great toe distal phalanx bordering the interphalangeal joint a small cystic area is seen with ill definition to the thin cortex here. Here there are soft tissue changes compatible with focal infection. Findings are concerning for focal osteomyelitis here. JOINTS: Normal. SOFT TISSUES: Soft tissue swelling. Overlying bandage-great toe. Atherosclerotic vascular calcifications present. OTHER FINDINGS: None. IMPRESSION: Findings concerning for small osteomyelitis focus medial aspect great toe distal phalanx as above. Contiguous regional soft tissue changes compatible with infection/cellulitis. Comments: Study marked for PA review .
--- NOTE | 2019-01-19 17:59 | CP.PCM.HP ---
History of Present Illness - History of Present Illness History of Present Illness: 53 year old female with PMH of Type II DM and HTN present to the ED for pain and wound on her left hallux. Patient states that she was seen earlier today in the podiatry clinic which sent her to the ED. Patient reports she developed a blister about 10 days ago she thought there was a foreign body in her left big toe which she removed with tweezers at home, she noticed serous drainage running from toe. She was here in ED last Thursday and was prescribed Bactrim PO and discharged with instructions to f/u with podiatry clinic. She endorses having numbness and tingling on her foot up to her calf. Otherwise she denies recent fever, chills, nausea, vomiting, SOB, CP, leg edema. Patient is wearing a surgical boot. PMD: [employer]: [employer] PMH: DM, HTN , Asthma PSH: hysterectomy, Right foot surgery, b/L eyes laser. NKDA Meds: As per EMR SHx: Denies tobacco, alcohol or rec drugs. Present on Admission - Present on Admission Any Indicators Present on Admission: Yes History of Uncontrolled Diabetes: Yes Review of Systems - Review of Systems All systems: reviewed and no additional remarkable complaints except (HPI) Past Patient History - Infectious Disease Hx of Infectious Diseases: None - Past Medical History & Family History Past Medical History?: Yes - Past Social History Alcohol: None Drugs: Denies - CARDIAC Hx Hypercholesterolemia: Yes Hx Hypertension: Yes - PULMONARY Hx Asthma: Yes - NEUROLOGICAL Hx Neurological Disorder: Yes Other/Comment: NEUROPATHY - HEENT Hx HEENT Problems: No - RENAL Hx Chronic Kidney Disease: No - ENDOCRINE/METABOLIC Hx Endocrine Disorders: Yes Hx Diabetes Mellitus Type 2: Yes - HEMATOLOGICAL/ONCOLOGICAL Hx Human Immunodeficiency Virus (HIV): No - INTEGUMENTARY Hx Dermatological Problems: No - MUSCULOSKELETAL/RHEUMATOLOGICAL Hx Musculoskeletal Disorders: Yes - GASTROINTESTINAL Hx Constipation: Yes - GENITOURINARY/GYNECOLOGICAL Hx Genitourinary Disorders: No - PSYCHIATRIC Hx Emotional Abuse: No Hx Physical Abuse: No Hx Substance Use: No - SURGICAL HISTORY Hx Tonsillectomy: Yes - ANESTHESIA Hx Anesthesia: Yes Hx Anesthesia Reactions: No Hx Malignant Hyperthermia: No Meds Allergies/Adverse Reactions: Allergies Allergy/AdvReac Type Severity Reaction Status Date / Time No Known Allergies Allergy Verified 01/19/19 16:07 Physical Exam - Constitutional Appears: No Acute Distress - Head Exam Head Exam: NORMAL INSPECTION - Eye Exam Eye Exam: EOMI, PERRL - ENT Exam ENT Exam: Mucous Membranes Moist - Neck Exam Neck exam: Positive for: Full Rom. Negative for: Lymphadenopathy, Thyromegaly - Respiratory Exam Respiratory Exam: Clear to Auscultation Bilateral, NORMAL BREATHING PATTERN. absent: Rales, Wheezes - Cardiovascular Exam Cardiovascular Exam: REGULAR RHYTHM, +S1, +S2. absent: Tachycardia - GI/Abdominal Exam GI & Abdominal Exam: Normal Bowel Sounds, Soft. absent: Distended, Tenderness - Extremities Exam Extremities exam: Positive for: pedal edema. Negative for: calf tenderness Additional comments: Dressing noted recently changed, clean, dry and intact. Mild tender to touch, toe ROM preserved, sensation decreased b/l. - Neurological Exam Neurological exam: Alert, Oriented x3 - Psychiatric Exam Psychiatric exam: Normal Mood - Skin Skin Exam: Dry, Warm Results - Vital Signs Recent Vital Signs: Last Vital Signs Temp 98.6 F 01/19/19 16:07 Pulse 98 H 01/19/19 16:07 Resp 16 01/19/19 16:07 BP 164/93 H 01/19/19 16:07 Pulse Ox 98 01/19/19 17:44 - Labs Result Diagrams: 01/19/19 19:38 01/19/19 19:38 Labs: Laboratory Results - last 24 hr 01/19/19 16:43 POC Glucose (mg/dL) 447 H* Assessment & Plan - Assessment and Plan (Free Text) Assessment: 53 year old female with PMH of IDDM and HTN admitted due to infected ulceration to her left hallux. Plan: Infected ulcer on left hallux r/o Cellulitis vs OM - Foot XR: Findings concerning for small osteomyelitis focus medial aspect great toe distal phalanx. Contiguous regional soft tissue changes compatible with infection/cellulitis. - VSS, afebrile, WBC wnl - admit to med/surg - s/p vanco and zosyn IV once - pain management - continue vanco IV daily - continue zosyn IV q6h - f/u ESR and CRP. - for wound and blood cx - f/u MRI and SHERRY/PVR LE. - Podiatry consulted, recs appreciated - labs in am Uncontrolled IDDM with hyperglycemia - Chronic - Insulin sliding scale, hypoglycemia protocol - Home meds resumed - labs in am HTN - Chronic, controlled - Home meds resumed DVT ppx - Lovenox 40mg SC daily. Case discussed with Dr Hicks.
[2019-01-19] MEDS ORDERED: Vancomycin 1 g Inj ONE (19:40)
[2019-01-19 19:44] LABS: BASO # 0.1 K/uL (0.0-0.2); BASO % 0.7 % (0.0-2.0); EOS # 0.1 K/uL (0.0-0.7); EOS % 0.7 % (0.0-4.0); HEMOGLOBIN 12.4 g/dL (12.0-16.0); LYMPH # 1.5 K/uL (1.0-4.3); LYMPH % 19.1 % (20.0-40.0); MEAN CORPUSCULAR HEMOGLOBIN 25.4 pg (27.0-31.0); MEAN CORPUSCULAR HGB CONC 32.2 g/dL (33.0-37.0); MEAN PLATELET VOLUME 8.2 fl (7.2-11.7); MONO # 0.4 K/uL (0.0-0.8); MONO % 5.4 % (0.0-10.0); NEUT # 5.9 K/uL (1.8-7.0); NEUT % 74.1 % (50.0-75.0); RBC 4.87 Mil/uL (3.80-5.20); RED CELL DISTRIBUTION WIDTH 13.5 % (11.5-14.5)
[2019-01-19] MEDS ORDERED: Oxycodone/Acetaminophen 5/325 mg Tab PO PRN (20:18)
[2019-01-19] MEDS ORDERED: Glucagon Recombinant 1 mg Inj IM PRN (20:34)
[2019-01-19] MEDS ORDERED: Dextrose 50% SYRINGE Inj (50 ml) IV PRN (20:34)
[2019-01-19 20:45] LABS: ALB/GLOB RATIO 0.9 (1.0-2.1); ALBUMIN 3.7 g/dL (3.5-5.0); ALT/SGPT 14 U/L (9-52); AST/SGOT 23 U/L (14-36); BLOOD UREA NITROGEN 8 mg/dl (7-17); CALCIUM 9.5 mg/dL (8.4-10.2); GFR NON-AFRICAN AMERICAN > 60
[2019-01-19] MEDS: Insulin Detemir 100 Units/ml Inj SC SCH (22:17)
[2019-01-19] MEDS: Piperacillin/Tazobact 3.375 GM in Sodium Chloride 0.9% 100 ML IVPB SCH (22:59)
[2019-01-19] MEDS: Insulin Lispro (humaLOG) 100 Units/ml Inj SC SCH (23:45)
[2019-01-20] MEDS: Piperacillin/Tazobact 3.375 GM in Sodium Chloride 0.9% 100 ML IVPB SCH ×4 (04:06→21:06)
[2019-01-20 07:13] LABS: BASO # 0.1 K/uL (0.0-0.2); BASO % 0.7 % (0.0-2.0); EOS # 0.1 K/uL (0.0-0.7); EOS % 1.3 % (0.0-4.0); HEMOGLOBIN 11.4 g/dL (12.0-16.0); LYMPH # 1.7 K/uL (1.0-4.3); LYMPH % 23.4 % (20.0-40.0); MEAN CELL VOLUME 78.6 fl (81.0-99.0); MEAN CORPUSCULAR HEMOGLOBIN 25.7 pg (27.0-31.0); MEAN CORPUSCULAR HGB CONC 32.7 g/dL (33.0-37.0); MONO # 0.4 K/uL (0.0-0.8); MONO % 6.1 % (0.0-10.0); NEUT % 68.5 % (50.0-75.0); NRBC % 0.1 % (0.0-0.0); RBC 4.43 Mil/uL (3.80-5.20); RED CELL DISTRIBUTION WIDTH 13.6 % (11.5-14.5); WHITE BLOOD COUNT 7.2 K/uL (4.8-10.8)
[2019-01-20 07:44] LABS: ALB/GLOB RATIO 0.9 (1.0-2.1); ALBUMIN 3.4 g/dL (3.5-5.0); ALT/SGPT 13 U/L (9-52); AST/SGOT 19 U/L (14-36); BLOOD UREA NITROGEN 9 mg/dl (7-17); CALCIUM 9.1 mg/dL (8.4-10.2); GFR NON-AFRICAN AMERICAN > 60
[2019-01-20] MEDS: Pantoprazole 40 mg EC Tab PO SCH (08:51)
[2019-01-20] MEDS: Insulin Lispro (humaLOG) 100 Units/ml Inj SC SCH ×4 (08:52→22:18)
[2019-01-20] MEDS ORDERED: Enoxaparin 40 mg Syringe SC SCH (09:00)
[2019-01-20] MEDS ORDERED: Patient's Own Med (Lisinopril/Hydrochlorothiazide [Lisinopril-Hctz 20-25 Mg Tab] 1 TAB) PO SCH (09:00)
[2019-01-20] MEDS ORDERED: Insulin Detemir 100 Units/ml Inj SC ONE (09:00)
[2019-01-20] MEDS ORDERED: LINACLOTIDE PO SCH (09:00)
[2019-01-20] MEDS ORDERED: Pneumococcal 23-Valent Vaccine IM ONE (09:00)
--- NOTE | 2019-01-20 09:39 | CP.PCM.PN ---
Subjective - Date & Time of Evaluation Date of Evaluation: 01/20/19 Time of Evaluation: 09:36 - Subjective Subjective: Podiatry progress note for Dr. Aiken: 53 year old female with PMH of Type II DM and HTN seen and evaluated in the ED for pain and ulceration to her left hallux. Denies acute overnight events She denies any recent fever, nausea, vomiting, SOB or chills. Objective - Vital Signs/Intake and Output Vital Signs (last 24 hours): Temp Pulse Resp BP Pulse Ox 98 F 76 20 154/78 H 98 01/20/19 07:51 01/20/19 08:51 01/20/19 07:51 01/20/19 08:51 01/20/19 07:51 - Medications Medications: Current Medications Acetaminophen (Tylenol 325mg Tab) 650 mg PO Q6 PRN PRN Reason: Pain, Mild (1-3) Amlodipine Besylate (Norvasc) 10 mg PO DAILY [facility] Last Admin: 01/20/19 08:50 Dose: 10 mg Aspirin (Aspirin Chewable) 81 mg PO DAILY [facility] Last Admin: 01/20/19 08:50 Dose: 81 mg Atorvastatin Calcium (Lipitor) 20 mg PO DAILY [facility] Last Admin: 01/20/19 08:51 Dose: 20 mg Dextrose (Dextrose 50% Inj) 0 ml IV STAT PRN; Protocol PRN Reason: Hypoglycemia Protocol Dextrose (Glutose 15) 0 gm PO ONCE PRN; Protocol PRN Reason: Hypoglycemia Protocol Enoxaparin Sodium (Lovenox) 40 mg SC DAILY [facility]; Protocol Last Admin: 01/20/19 08:53 Dose: 40 mg Fluticasone Propionate (Flonase) 1 spr ESTEFANY DAILY [facility] Last Admin: 01/20/19 08:59 Dose: 1 spr Glucagon (Glucagen Diagnostic Kit) 0 mg IM STAT PRN; Protocol PRN Reason: Hypoglycemia Protocol Home Med (Linaclotide [Linzess]) 1 cap PO DAILY [facility] Hydrochlorothiazide (Hydrodiuril) 25 mg PO DAILY [facility] Last Admin: 01/20/19 08:50 Dose: 25 mg Vancomycin HCl 1 gm/ Sodium (Chloride) 250 mls @ 166.667 mls/hr IVPB DAILY [facility]; Protocol Last Admin: 01/20/19 08:48 Dose: 166.667 mls/hr Piperacillin Sod/Tazobactam (Sod 3.375 gm/ Sodium Chloride) 100 mls @ 100 mls/h r IVPB Q6 [facility]; Protocol Last Admin: 01/20/19 04:06 Dose: 100 mls/hr Insulin Detemir (Levemir) 36 units SC HS [facility] Last Admin: 01/19/19 22:17 Dose: 36 unit Insulin Human Lispro (Humalog) 0 units SC ACCU-CHECK [facility]; Protocol Last Admin: 01/20/19 08:52 Dose: 2 units Lisinopril (Zestril) 20 mg PO DAILY [facility] Last Admin: 01/20/19 08:51 Dose: 20 mg Montelukast Sodium (Singulair) 10 mg PO DAILY [facility] Last Admin: 01/20/19 08:50 Dose: 10 mg Mupirocin (Bactroban Ointment) 1 applic TOP BID [facility] Last Admin: 01/20/19 08:49 Dose: 1 applic Oxycodone/Acetaminophen (Percocet 5/325 Mg Tab) 1 tab PO Q4 PRN PRN Reason: Pain, severe (8-10) Stop: 01/22/19 20:19 Pantoprazole Sodium (Protonix Ec Tab) 40 mg PO DAILY [facility] Last Admin: 01/20/19 08:51 Dose: 40 mg Propranolol HCl (Inderal) 20 mg PO Q12H [facility] Last Admin: 01/20/19 08:51 Dose: 20 mg - Labs Labs: 01/20/19 06:17 01/20/19 06:17 - Constitutional Appears: Well, Non-toxic, No Acute Distress - Head Exam Head Exam: ATRAUMATIC, NORMOCEPHALIC - Eye Exam Eye Exam: Normal appearance - ENT Exam ENT Exam: Mucous Membranes Moist - Cardiovascular Exam Cardiovascular Exam: REGULAR RHYTHM - Extremities Exam Additional comments: Bilateral Lower Extremity focused exam: VASC: DP and PT 2/4 bilaterally, Cap refill < 3 seconds X 10, Moderate non- pitting edema to the left foot and left leg, Temp gradient warm to warmer on the left and warm to cool to the right. NEURO: Diminished gross and protective sensations b/l. DERM: An oval ulcer noted 3.5 cm X 2.5 cm X 0.3 cm wound to the plantar medial aspect of the left hallux, macerated wound edges, 50% Necrotic base with 50% mixed fibrogranular base, positive erythema jh-wound, positive purulent drainage, no probe to bone, no malodor, no crepitus. MSK: Mild pain on palpation to the base of the hallux at the 1st MTPJ, Pain on calf squeeze, no other obvious deformities, MMT 5/5 to all groups. - Neurological Exam Neurological Exam: Alert, Awake Assessment and Plan - Assessment and Plan (Free Text) Assessment: 53 year old female with PMH of Type II DM and HTN seen and evaluated in the ED for infected ulceration to her left hallux. Plan: Patient seen and evaluated. Plan discussed with Dr Aiken. Charts and vitals reviewed. ESR- 101 CRP pending Ordered Left foot X-ray- cortical erosions noted on the distal phalanx of the hallux wound cultures pending Continue vaanc/zosyn; ID on board- appreciate recs MRI left foot- official read pending Ordered SHERRY/PVR LE. Continue daily dressing changes with bactroban, DSD Podiatry plan: debridement of the wound and bone biopsy with possible application of graft tomorrow (sunday 01/21) at 7:45 am. Please provide medical and cardiac clearance. Podiatry will continue to follow up the patient while in house.
--- NOTE | 2019-01-20 09:43 | CP.PCM.PN ---
Subjective - Date & Time of Evaluation Date of Evaluation: 01/20/19 Time of Evaluation: 09:43 - Subjective Subjective: Patient seen and examined at bedside. She reports her pain is now much better as compared to yesterday. States that she has no complaints today. Denies chest pain, shortness of breath, abdominal pain, nausea, vomiting, polyuria, polydip marcio or nocturia. Objective - Vital Signs/Intake and Output Vital Signs (last 24 hours): Temp Pulse Resp BP Pulse Ox 98 F 76 20 154/78 H 98 01/20/19 07:51 01/20/19 08:51 01/20/19 07:51 01/20/19 08:51 01/20/19 07:51 - Medications Medications: Current Medications Acetaminophen (Tylenol 325mg Tab) 650 mg PO Q6 PRN PRN Reason: Pain, Mild (1-3) Amlodipine Besylate (Norvasc) 10 mg PO DAILY [facility] Last Admin: 01/20/19 08:50 Dose: 10 mg Aspirin (Aspirin Chewable) 81 mg PO DAILY [facility] Last Admin: 01/20/19 08:50 Dose: 81 mg Atorvastatin Calcium (Lipitor) 20 mg PO DAILY [facility] Last Admin: 01/20/19 08:51 Dose: 20 mg Dextrose (Dextrose 50% Inj) 0 ml IV STAT PRN; Protocol PRN Reason: Hypoglycemia Protocol Dextrose (Glutose 15) 0 gm PO ONCE PRN; Protocol PRN Reason: Hypoglycemia Protocol Enoxaparin Sodium (Lovenox) 40 mg SC DAILY [facility]; Protocol Last Admin: 01/20/19 08:53 Dose: 40 mg Fluticasone Propionate (Flonase) 1 spr ESTEFANY DAILY [facility] Last Admin: 01/20/19 08:59 Dose: 1 spr Glucagon (Glucagen Diagnostic Kit) 0 mg IM STAT PRN; Protocol PRN Reason: Hypoglycemia Protocol Home Med (Linaclotide [Linzess]) 1 cap PO DAILY [facility] Hydrochlorothiazide (Hydrodiuril) 25 mg PO DAILY [facility] Last Admin: 01/20/19 08:50 Dose: 25 mg Vancomycin HCl 1 gm/ Sodium (Chloride) 250 mls @ 166.667 mls/hr IVPB DAILY [facility]; Protocol Last Admin: 01/20/19 08:48 Dose: 166.667 mls/hr Piperacillin Sod/Tazobactam (Sod 3.375 gm/ Sodium Chloride) 100 mls @ 100 mls/hr IVPB Q6 [facility]; Protocol Last Admin: 01/20/19 04:06 Dose: 100 mls/hr Insulin Detemir (Levemir) 36 units SC HS [facility] Last Admin: 01/19/19 22:17 Dose: 36 unit Insulin Human Lispro (Humalog) 0 units SC ACCU-CHECK [facility]; Protocol Last Admin: 01/20/19 08:52 Dose: 2 units Lisinopril (Zestril) 20 mg PO DAILY [facility] Last Admin: 01/20/19 08:51 Dose: 20 mg Montelukast Sodium (Singulair) 10 mg PO DAILY [facility] Last Admin: 01/20/19 08:50 Dose: 10 mg Mupirocin (Bactroban Ointment) 1 applic TOP BID [facility] Last Admin: 01/20/19 08:49 Dose: 1 applic Oxycodone/Acetaminophen (Percocet 5/325 Mg Tab) 1 tab PO Q4 PRN PRN Reason: Pain, severe (8-10) Stop: 01/22/19 20:19 Pantoprazole Sodium (Protonix Ec Tab) 40 mg PO DAILY [facility] Last Admin: 01/20/19 08:51 Dose: 40 mg Propranolol HCl (Inderal) 20 mg PO Q12H [facility] Last Admin: 01/20/19 08:51 Dose: 20 mg - Labs Labs: 01/20/19 06:17 01/20/19 06:17 - Constitutional Appears: Non-toxic, No Acute Distress - Eye Exam Eye Exam: Normal appearance - ENT Exam ENT Exam: Mucous Membranes Moist - Respiratory Exam Respiratory Exam: Clear to Ausculation Bilateral, NORMAL BREATHING PATTERN. absent: Accessory Muscle Use, Chest Wall Tenderness, Decreased Breath Sounds, Prolonged Expiratory Phase, Rales, Rhonchi, Wheezes, Respiratory Distress, Stridor - Cardiovascular Exam Cardiovascular Exam: REGULAR RHYTHM, +S1, +S2 - GI/Abdominal Exam GI & Abdominal Exam: Soft, Normal Bowel Sounds. absent: Distended, Firm, Guarding, Rigid, Tenderness, Hernia, Rebound - Extremities Exam Extremities Exam: Normal Capillary Refill (+2 dosalis pedis and tibialis posterior pulses present bilaterally. Left hallux wrapped.), Pedal Edema (Left lower leg edema up to the knee. ). absent: Calf Tenderness, Tenderness - Neurological Exam Neurological Exam: Alert, Awake, Oriented x3 - Psychiatric Exam Psychiatric exam: Normal Affect, Normal Mood - Skin Skin Exam: Dry, Intact, Normal Color, Warm Assessment and Plan - Assessment and Plan (Free Text) Assessment: 53 year old female with PMH of IDDM and HTN admitted due to infected ulceration to her left hallux. For wound debridement tomorrow, 01/21/19. Plan: Infected ulcer on left hallux r/o Cellulitis vs OM - Foot XR: Findings concerning for small osteomyelitis focus medial aspect great toe distal phalanx. Contiguous regional soft tissue changes compatible with infection/cellulitis. - C/W Vanco (day 1) and zosyn IV (day 2) - pain management - ESR elevated - Wound culture: Gram positive cocci in clusters. - F/U Lower extremity ultrasound - Podiatry consulted, recs appreciated- to undergo wound debridement 01/20/19 in the AM - Cardiac consult for cardiac clearance Uncontrolled IDDM with hyperglycemia - Chronic - Insulin sliding scale, hypoglycemia protocol - Levemir: 30 units am and 36 units HS - Monitor glucose levels. HTN - Chronic, controlled - Home meds resumed- Lisinopril and HCTZ and Amlodipine - Continue to monitor DVT ppx - Lovenox 40mg SC- given today on hold for tomorrow given surgery tomorrow
[2019-01-20] MEDS ORDERED: Povidone Iodine Topical 10% Sol ONE (10:02)
[2019-01-20] MEDS ORDERED: Silver Sulfadiazine 1% Cream (20 gm) TOP SCH (11:00)
--- NOTE | 2019-01-20 12:12 | MRI ---
Date of service: 01/19/2019 PROCEDURE: RIGHT FOOT MRI WITHOUT CONTRAST TO 01/19/2019 HISTORY: left foot infected ulcer. R/O or In OM. COMPARISON: Left great toe radiographs, left foot radiographs both from 01/19/2019. TECHNIQUE: MR examination of the midfoot/forefoot segments of the left foot of been submitted for interpretation. Intravenous gadolinium was not administered as per referring physician request. Multiplanar multisequential technique was utilized. FINDINGS: Mild increased signal changes are identified on long TR imaging of the distal phalanx great toe as well as somewhat within the proximal phalanx of the great toe as well. There is adequate fat suppression throughout the STIR sequences including local fat surrounding the great toe. Although the edema is not prominent, this is felt to reflect osteomyelitis nevertheless. No definite erosive changes are appreciated at the left great toe in radiographs from 01/19/2019, however, MRI is more sensitive for early osteomyelitis than radiographs. Other etiologies are possible still, and clinical correlation is advised. No bony erosive changes are identified throughout the visualized bony forefoot and midfoot. Prominent dorsal foot soft tissue edema is appreciated greater the forefoot and midfoot anatomy and tissue loss is identified at the distal medial plantar great toe, predominantly distally. No fracture plane is identified throughout the exam. No additional bony edema appreciable. No definitive tendon tear throughout the examination. Moderate degenerative tarsal tarsal and tarsometatarsal as well as interphalangeal degenerative change are identified including the 1st metatarsophalangeal joint. No subluxation or dislocation. Visualized plantar fascia appears unremarkable. IMPRESSION: Findings suspicious for osteomyelitis of the distal phalanx left great toe and likely the proximal phalanx as well. Prominent dorsal soft tissue edema is seen throughout the forefoot greater than midfoot distribution with soft tissue loss representing clinically known ulcer at the distal medial great toe plantar soft tissues. Please see discussion above. Concordant preliminary report from Jaciel, 01/19/2019, 7:52 p.m..
[2019-01-20] MEDS ORDERED: Enoxaparin 40 mg Syringe SC STA (13:01)
[2019-01-20 13:02] LABS: INR 1.1; PROTHROMBIN TIME 12.6 Seconds (9.8-13.1)
--- NOTE | 2019-01-20 14:55 | US ---
Date of service: 01/19/2019 PROCEDURE: LEFT LOWER EXTREMITY VENOUS ULTRASOUND HISTORY: R/O or In DVT COMPARISON: Left lower extremity venous ultrasound 01/14/2019. TECHNIQUE: Standard and duplex Doppler ultrasonography of the left lower extremity major deep veins was performed including graded compression and augmentation and other technique. FINDINGS: Good compressibility, augmentation and normal phasic blood flow are identified at the left common and superficial femoral as well as popliteal veins. Grayscale imaging is unremarkable and the posterior tibial vein appears patent. The right saphenofemoral junction appears unremarkable. Incidental note is made of an enlarged lymph node at the right groin measuring 3.3 x 1.0 cm. IMPRESSION: No sonographic evidence to suggest deep venous thrombosis left lower extremity. No significant interval change compared to prior left upper extremity ultrasound 01/14/2019. Incidental 3.3 cm left inguinal lymph node again evident.
--- NOTE | 2019-01-20 18:08 | CP.PCM.PCO ---
Physician Communication Note - Physician Communication Note Physician Communication Note: OK with foot surgery [facility].Postop Telemetry
--- NOTE | 2019-01-20 19:02 | CARD ---
APPROVED REPORT Date of service: 01/20/2019 EKG Measurement Heart [id number] <Conclusion> Normal sinus rhythm Possible Left atrial enlargement Borderline ECG
--- NOTE | 2019-01-20 19:17 | CARD ---
APPROVED REPORT Date of service: 01/20/2019 EXAM: Two-dimensional and M-mode echocardiogram with Doppler and color Doppler. Other Information Quality : GoodRhythm : NSR INDICATION Pre-Op 2D DIMENSIONS IVSd1.24 (0.7-1.1cm)LVDd3.71 (3.9-5.9cm) LVOT Diameter2.08 (1.8-2.4cm)PWd1.26 (0.7-1.1cm) IVSs1.90 (0.8-1.2cm)LVDs2.68 (2.5-4.0cm) FS (%) 27.9 %PWs1.61 (0.8-1.2cm) M-Mode DIMENSIONS Left Atrium (MM)3.78 (2.5-4.0cm)IVSd1.29 (0.7-1.1cm) Aortic Root3.32 (2.2-3.7cm)LVDd4.43 (4.0-5.6cm) Aortic Cusp Exc.2.08 (1.5-2.0cm)PWd1.29 (0.7-1.1cm) IVSs1.60 cmFS (%) 33 % LVDs2.99 (2.0-3.8cm)PWs1.52 cm Aortic Valve AoV Peak Qlueujid97.0cm/sAoV VTI18.5cmAO Peak GR.4mmHg LVOT Peak Wkbxrqqt54.8cm/sLVOT VTI18.57cmAO Mean GR.2mmHg LELE (VMAX)1.55le4TVE (VTI)1.83cm2 Mitral Valve MV E Eymvahts40.7cm/sMV DECEL [id number] A Tryegkcy35.5cm/s MV VAZ14uxR/A ratio0.8MVA (PHT)3.10cm2 TDI Lateral E' Peak V6.93cm/sMedial E' Peak V5.79cm/sE/Lateral E'8.0 E/Medial E'9.6 LEFT VENTRICLE The left ventricle is normal size. There is mild concentric left ventricular hypertrophy. The left ventricular systolic function is normal. The estimated ejection fraction is 55-60% No regional wall motion abnormalities noted.. Transmitral Doppler flow pattern is Grade I-abnormal relaxation pattern. No left ventricle thrombus noted on this study. There is no ventricular septal defect visualized. There is no left ventricular aneurysm. There is no mass noted in the left ventricle. RIGHT VENTRICLE The right ventricle is normal size. There is normal right ventricular wall thickness. The right ventricular systolic function is normal. ATRIA The left atrium size is normal. The right atrium size is normal. The interatrial septum is intact with no evidence for an atrial septal defect. AORTIC VALVE The aortic valve is normal in structure. No aortic regurgitation is present. There is no aortic valvular stenosis. There is no aortic valvular vegetation. MITRAL VALVE The mitral valve is normal in structure. There is no evidence of mitral valve prolapse. There is no mitral valve stenosis. There is no mitral valve regurgitation noted. TRICUSPID VALVE The tricuspid valve is normal in structure. There is trace tricuspid valve regurgitation noted. There is no tricuspid valve prolapse or vegetation. There is no tricuspid valve stenosis. PULMONIC VALVE The pulmonary valve is normal in structure. There is trace pulmonic valvular regurgitation. There is no pulmonic valvular stenosis. GREAT VESSELS The aortic root is normal in size. The ascending aorta is normal in size. The pulmonary artery is normal. The IVC is mildly dilated in size and collapses >50% with inspiration. PERICARDIAL EFFUSION There is no pericardial effusion. There is no pleural effusion. <Conclusion> The estimated ejection fraction is 55-60% Transmitral Doppler flow pattern is Grade I-abnormal relaxation pattern. The left atrium size is normal. There is trace tricuspid valve regurgitation noted. The IVC is mildly dilated in size and collapses >50% with inspiration.
[2019-01-20] MEDS: Sodium Chloride 0.9% 1,000 ML IV SCH (20:15)
--- NOTE | 2019-01-20 20:19 | CP.PCM.PN ---
Subjective - Date & Time of Evaluation Date of Evaluation: 01/20/19 Time of Evaluation: 20:20 - Subjective Subjective: I D NOTES HAVE REVIEWED ONLY POSITIVE CULTURE HAS STREP WOULD CONTINUE PRESENT RX FULL CONSULT TO FOLLOW Objective - Vital Signs/Intake and Output Vital Signs (last 24 hours): Temp Pulse Resp BP Pulse Ox 97.9 F 84 18 139/82 99 01/20/19 16:13 01/20/19 16:13 01/20/19 16:13 01/20/19 16:13 01/20/19 16:13 - Medications Medications: Current Medications Acetaminophen (Tylenol 325mg Tab) 650 mg PO Q6 PRN PRN Reason: Pain, Mild (1-3) Amlodipine Besylate (Norvasc) 10 mg PO DAILY [facility] Last Admin: 01/20/19 08:50 Dose: 10 mg Aspirin (Aspirin Chewable) 81 mg PO DAILY [facility] Last Admin: 01/20/19 08:50 Dose: 81 mg Atorvastatin Calcium (Lipitor) 20 mg PO DAILY [facility] Last Admin: 01/20/19 08:51 Dose: 20 mg Dextrose (Dextrose 50% Inj) 0 ml IV STAT PRN; Protocol PRN Reason: Hypoglycemia Protocol Dextrose (Glutose 15) 0 gm PO ONCE PRN; Protocol PRN Reason: Hypoglycemia Protocol Enoxaparin Sodium (Lovenox) 40 mg SC DAILY [facility]; Protocol Last Admin: 01/20/19 08:53 Dose: 40 mg Fluticasone Propionate (Flonase) 1 spr ESTEFANY DAILY [facility] Last Admin: 01/20/19 08:59 Dose: 1 spr Glucagon (Glucagen Diagnostic Kit) 0 mg IM STAT PRN; Protocol PRN Reason: Hypoglycemia Protocol Home Med (Linaclotide [Linzess]) 1 cap PO DAILY [facility] Hydrochlorothiazide (Hydrodiuril) 25 mg PO DAILY [facility] Last Admin: 01/20/19 08:50 Dose: 25 mg Vancomycin HCl 1 gm/ Sodium (Chloride) 250 mls @ 166.667 mls/hr IVPB DAILY [facility]; Protocol Last Admin: 01/20/19 08:48 Dose: 166.667 mls/hr Piperacillin Sod/Tazobactam (Sod 3.375 gm/ Sodium Chloride) 100 mls @ 100 mls/hr IVPB Q6 [facility]; Protocol Last Admin: 01/20/19 17:28 Dose: 100 mls/hr Sodium Chloride (Sodium Chloride 0.9%) 1,000 mls @ 85 mls/hr IV .[id number] [facility] Stop: 01/21/19 19:04 Insulin Detemir (Levemir) 36 units SC HS [facility] Last Admin: 01/19/19 22:17 Dose: 36 unit Insulin Human Lispro (Humalog) 0 units SC ACCU-CHECK [facility]; Protocol Last Admin: 01/20/19 17:30 Dose: 4 units Lisinopril (Zestril) 20 mg PO DAILY [facility] Last Admin: 01/20/19 08:51 Dose: 20 mg Montelukast Sodium (Singulair) 10 mg PO DAILY [facility] Last Admin: 01/20/19 08:50 Dose: 10 mg Mupirocin (Bactroban Ointment) 1 applic TOP BID [facility] Last Admin: 01/20/19 17:31 Dose: 1 applic Oxycodone/Acetaminophen (Percocet 5/325 Mg Tab) 1 tab PO Q4 PRN PRN Reason: Pain, severe (8-10) Stop: 01/22/19 20:19 Pantoprazole Sodium (Protonix Ec Tab) 40 mg PO DAILY [facility] Last Admin: 01/20/19 08:51 Dose: 40 mg Propranolol HCl (Inderal) 20 mg PO Q12H [facility] Last Admin: 01/20/19 08:51 Dose: 20 mg Silver Sulfadiazine (Silvadene 1% 20 Gm) 1 ea TOP DAILY [facility] - Labs Labs: 01/20/19 06:17 01/20/19 06:17 PT 12.6 Seconds (9.8-13.1) 01/20/19 12:10 INR 1.1 01/20/19 12:10
[2019-01-20] MEDS: Insulin Detemir 100 Units/ml Inj SC SCH (21:11)
--- NOTE | 2019-01-20 23:14 | CON ---
DATE: 01/20/2019 CARDIOLOGY CONSULTATION REASON FOR CONSULTATION: Preoperative evaluation. HISTORY OF PRESENT ILLNESS: The patient is a 53-year-old -[place] female who has diabetes mellitus for more than 20 years, which started as gestational diabetes. The patient presented because of painful ulcer in her left hallux that developed a few days ago as a blister. The patient is being considered for a foot surgery, debridement of the wound, and bone biopsy with possible application of graft tomorrow. The patient denies any chest pain and is unaware of any prior cardiac history. SOCIAL HISTORY: Nonsmoker, nondrinker. MEDICATIONS: Aspirin 81 mg once a day, Flonase one spray daily, hydrochlorothiazide 25 mg daily, Inderal 20 mg twice a day, Lipitor 20 mg once a day, Lovenox 40 mg subcutaneous once a day, Norvasc 10 mg once a day, Zosyn 3.375 g intravenously every 6 hours, vancomycin 1 g intravenously daily, and Zestril 20 mg once a day. REVIEW OF SYSTEMS: No nausea or vomiting. No retrosternal chest pain. No palpitation or dizziness. PHYSICAL EXAMINATION: GENERAL: The patient is a middle-aged female who does not appear to be in any distress. VITAL SIGNS: Blood pressure 154/78, heart rate 76, temperature 98, respirations 20. HEENT: Normocephalic. CHEST: Clear. HEART: S1 and S2, regular. EXTREMITIES: No edema. No calf tenderness. LABORATORY DATA: Today's hemoglobin and hematocrit 11.4 and 34.8, white count and platelet count are within normal limits. Today's SMA-7 is within normal limits except for glucose of 159 and carbon dioxide of 31. Admitting glucose was 447. Left foot culture was positive for Gram-positive cocci. EKG done today revealed sinus rhythm at a rate of 82 and possible left atrial enlargement. Stress test was done in 12/2014, was a normal study. ASSESSMENT: 1. Painful left foot ulcer. 2. Hypertension and diabetes mellitus. RECOMMENDATIONS: Continue current aspirin 81 mg once a day, hydrochlorothiazide 25 mg once a day, Inderal 20 mg once a day, IV Zosyn, and IV vancomycin. Continue Zestril 20 mg once a day. Obtain an echocardiographic study today. Jared Lares MD [facility] # [id number]
[2019-01-21] MEDS: Piperacillin/Tazobact 3.375 GM in Sodium Chloride 0.9% 100 ML IVPB SCH (03:09)
[2019-01-21] MEDS: Sodium Chloride 0.9% 1,000 ML IV SCH (03:10)
[2019-01-21] MEDS ORDERED: Lidocaine 1% Inj (20ml) IJ ONE (07:12)
[2019-01-21] MEDS ORDERED: Bupivacaine 0.25% Inj(30mL) IJ ONE (07:12)
--- NOTE | 2019-01-21 07:12 | CP.PCM.PN ---
Subjective - Date & Time of Evaluation Date of Evaluation: 01/21/19 Time of Evaluation: 07:09 - Subjective Subjective: Podiatry progress note for Dr. Aiken: 53 year old female with PMH of Type II DM and HTN seen and evaluated for pain and ulceration to her left hallux. Denies acute overnight events She denies any recent fever, nausea, vomiting, SOB or chills. Admits to being NPO. denies any questions. Objective - Vital Signs/Intake and Output Vital Signs (last 24 hours): Temp Pulse Resp BP Pulse Ox 97.8 F 80 18 122/65 98 01/20/19 23:37 01/21/19 05:59 01/20/19 23:37 01/21/19 05:59 01/20/19 23:37 - Medications Medications: Current Medications Acetaminophen (Tylenol 325mg Tab) 650 mg PO Q6 PRN PRN Reason: Pain, Mild (1-3) Amlodipine Besylate (Norvasc) 10 mg PO DAILY [facility] Last Admin: 01/20/19 08:50 Dose: 10 mg Aspirin (Aspirin Chewable) 81 mg PO DAILY [facility] Last Admin: 01/20/19 08:50 Dose: 81 mg Atorvastatin Calcium (Lipitor) 20 mg PO DAILY [facility] Last Admin: 01/20/19 08:51 Dose: 20 mg Dextrose (Dextrose 50% Inj) 0 ml IV STAT PRN; Protocol PRN Reason: Hypoglycemia Protocol Dextrose (Glutose 15) 0 gm PO ONCE PRN; Protocol PRN Reason: Hypoglycemia Protocol Enoxaparin Sodium (Lovenox) 40 mg SC DAILY [facility]; Protocol Fluticasone Propionate (Flonase) 1 spr ESTEFANY DAILY [facility] Last Admin: 01/20/19 08:59 Dose: 1 spr Glucagon (Glucagen Diagnostic Kit) 0 mg IM STAT PRN; Protocol PRN Reason: Hypoglycemia Protocol Home Med (Linaclotide [Linzess]) 1 cap PO DAILY [facility] Hydrochlorothiazide (Hydrodiuril) 25 mg PO DAILY [facility] Last Admin: 01/20/19 08:50 Dose: 25 mg Vancomycin HCl 1 gm/ Sodium (Chloride) 250 mls @ 166.667 mls/hr IVPB DAILY [facility]; Protocol Last Admin: 01/20/19 08:48 Dose: 166.667 mls/hr Piperacillin Sod/Tazobactam (Sod 3.375 gm/ Sodium Chloride) 100 mls @ 100 mls/hr IVPB Q6 [facility]; Protocol Last Admin: 01/21/19 03:09 Dose: 100 mls/hr Sodium Chloride (Sodium Chloride 0.9%) 1,000 mls @ 85 mls/hr IV .[id number] [facility] Stop: 01/21/19 19:04 Last Admin: 01/21/19 03:10 Dose: 85 mls/hr Insulin Detemir (Levemir) 36 units SC HS [facility] Last Admin: 01/20/19 21:11 Dose: 36 unit Insulin Human Lispro (Humalog) 0 units SC ACCU-CHECK [facility]; Protocol Last Admin: 01/20/19 22:18 Dose: 3 units Lisinopril (Zestril) 20 mg PO DAILY [facility] Last Admin: 01/20/19 08:51 Dose: 20 mg Montelukast Sodium (Singulair) 10 mg PO DAILY [facility] Last Admin: 01/20/19 08:50 Dose: 10 mg Mupirocin (Bactroban Ointment) 1 applic TOP BID [facility] Last Admin: 01/20/19 17:31 Dose: 1 applic Oxycodone/Acetaminophen (Percocet 5/325 Mg Tab) 1 tab PO Q4 PRN PRN Reason: Pain, severe (8-10) Stop: 01/22/19 20:19 Pantoprazole Sodium (Protonix Ec Tab) 40 mg PO DAILY [facility] Last Admin: 01/20/19 08:51 Dose: 40 mg Propranolol HCl (Inderal) 20 mg PO Q12H [facility] Last Admin: 01/21/19 05:59 Dose: 20 mg Silver Sulfadiazine (Silvadene 1% 20 Gm) 1 ea TOP DAILY [facility] - Labs Labs: 01/20/19 06:17 01/20/19 06:17 PT 12.6 Seconds (9.8-13.1) 01/20/19 12:10 INR 1.1 01/20/19 12:10 - Constitutional Appears: Well, Non-toxic - Head Exam Head Exam: ATRAUMATIC - Eye Exam Eye Exam: Normal appearance - ENT Exam ENT Exam: Mucous Membranes Moist - Respiratory Exam Respiratory Exam: Clear to Ausculation Bilateral - Cardiovascular Exam Cardiovascular Exam: REGULAR RHYTHM, +S1, +S2 - Extremities Exam Additional comments: dressing c/d/i - Neurological Exam Neurological Exam: Alert, Awake, Oriented x3 Assessment and Plan - Assessment and Plan (Free Text) Assessment: 53 year old female with PMH of Type II DM and HTN seen and evaluated in the ED for infected ulceration to her left hallux Plan: Patient seen and evaluated. Plan discussed with Dr Aiken. Charts and vitals reviewed. ESR- 101 CRP 40.40 Ordered Left foot X-ray- cortical erosions noted on the distal phalanx of the hallux wound cultures: beta hemolytic strep group B Continue vaanc/zosyn; ID on board- appreciate recs MRI left foot- OM of distal and prox phalanx Ordered SHERRY/PVR LE. Continue daily dressing changes with bactroban, DSD Podiatry plan: debridement of the wound and bone biopsy with possible application of graft today (sunday 01/21) at 7:45 am. Medical and cardiac clearance on file. Podiatry will continue to follow up the patient while in house.
[2019-01-21] MEDS ORDERED: Sodium Chloride 0.9% 1,000 ML IV SCH (07:15)
[2019-01-21] MEDS ORDERED: Midazolam 2 MG/2 ML VIAL ONE (07:39)
[2019-01-21] MEDS ORDERED: Propofol 10 mg/ml Inj (20 ML) ONE (07:39)
[2019-01-21] MEDS ORDERED: Bupivacaine 0.5% Inj(30mL) ONE (07:48)
[2019-01-21] MEDS ORDERED: Lidocaine 1% Inj (20ml) ONE (07:48)
[2019-01-21] MEDS ORDERED: Lactated Ringer's 1,000 ML IV ONE (07:55)
[2019-01-21] MEDS ORDERED: Piperacillin/Tazobact 3.375 gm Inj IVPB ONE (08:05)
[2019-01-21] MEDS ORDERED: Vancomycin 1 g Inj IVPB ONE (08:15)
[2019-01-21] MEDS ORDERED: Povidone Iodine Topical 10% Sol ONE (08:35)
--- NOTE | 2019-01-21 08:47 | PCM.SURG1 ---
Surgeon's Initial Post Op Note - Surgeon's Notes Surgeon: Dr. Aiken DPM [employer] Inspector: Dr. Ha PGY1 Type of Anesthesia: General LMA Pre-Operative Diagnosis: left hallux osteomyelitis Operative Findings: see dictation. I 20cc 0.5% marcaine plain. betadine pack, adaptic, dry sterile dressing Post-Operative Diagnosis: same Operation Performed: Left hallux bone biopsy and wound debridement Specimen/Specimens Removed: left hallux infected bone Estimated Blood Loss: EBL {In ML}: 2 Blood Products Given: N/A Drains Used: No Drains Post-Op Condition: Good Date of Surgery/Procedure: 01/21/19 Time of Surgery/Procedure: 08:47
[2019-01-21] MEDS ORDERED: HYDROmorphone 0.5 mg/0.5 ml ISec IVP PRN (08:48)
[2019-01-21] MEDS ORDERED: Silver Sulfadiazine 1% Cream (20 gm) TOP SCH (09:00)
[2019-01-21] MEDS ORDERED: Lactated Ringer's 1,000 ML IV SCH (09:00)
--- NOTE | 2019-01-21 10:30 | CP.PCM.PN ---
Subjective - Date & Time of Evaluation Date of Evaluation: 01/21/19 Time of Evaluation: 10:30 - Subjective Subjective: Patient seen and examined at bedside s/p wound debridement and left hallux bone biopsy. Patient is very happy and states she feels very well after the procedure. Denies angina, dypsnea, abdominal pain, nausea, vomiting. She has not passed gas as of yet. No complaints at this time. Patient reports that at home she uses her insulin 15 units in the am and 15 units in the pm. She reports her glucose numbers have been ranging : AM: 98-97 and pm: 200's. Objective - Vital Signs/Intake and Output Vital Signs (last 24 hours): Temp Pulse Resp BP Pulse Ox 98.1 F 74 19 153/84 H 100 01/21/19 07:52 01/21/19 07:52 01/21/19 07:52 01/21/19 07:52 01/21/19 07:52 Intake and Output: 01/21/19 01/21/19 06:59 18:59 Intake Total 200 Balance 200 - Medications Medications: Current Medications Acetaminophen (Tylenol 325mg Tab) 650 mg PO Q6 PRN PRN Reason: Pain, Mild (1-3) Amlodipine Besylate (Norvasc) 10 mg PO DAILY [facility] Last Admin: 01/20/19 08:50 Dose: 10 mg Aspirin (Aspirin Chewable) 81 mg PO DAILY [facility] Last Admin: 01/20/19 08:50 Dose: 81 mg Atorvastatin Calcium (Lipitor) 20 mg PO DAILY [facility] Last Admin: 01/20/19 08:51 Dose: 20 mg Dextrose (Dextrose 50% Inj) 0 ml IV STAT PRN; Protocol PRN Reason: Hypoglycemia Protocol Dextrose (Glutose 15) 0 gm PO ONCE PRN; Protocol PRN Reason: Hypoglycemia Protocol Enoxaparin Sodium (Lovenox) 40 mg SC DAILY [facility]; Protocol Fluticasone Propionate (Flonase) 1 spr ESTEFANY DAILY [facility] Last Admin: 01/20/19 08:59 Dose: 1 spr Glucagon (Glucagen Diagnostic Kit) 0 mg IM STAT PRN; Protocol PRN Reason: Hypoglycemia Protocol Home Med (Linaclotide [Linzess]) 1 cap PO DAILY [facility] Hydrochlorothiazide (Hydrodiuril) 25 mg PO DAILY [facility] Last Admin: 01/20/19 08:50 Dose: 25 mg Hydromorphone HCl (Dilaudid) 0.5 mg IVP Q5M PRN PRN Reason: Pain, moderate (4-7) Stop: 01/21/19 10:48 Vancomycin HCl 1 gm/ Sodium (Chloride) 250 mls @ 166.667 mls/hr IVPB DAILY [facility]; Protocol Last Admin: 01/20/19 08:48 Dose: 166.667 mls/hr Piperacillin Sod/Tazobactam (Sod 3.375 gm/ Sodium Chloride) 100 mls @ 100 mls/hr IVPB Q6 [facility]; Protocol Last Admin: 01/21/19 03:09 Dose: 100 mls/hr Sodium Chloride (Sodium Chloride 0.9%) 1,000 mls @ 85 mls/hr IV .[id number] [facility] Stop: 01/21/19 19:04 Last Admin: 01/21/19 03:10 Dose: 85 mls/hr Sodium Chloride (Sodium Chloride 0.9%) 1,000 mls @ 0 mls/hr IV .Q0M [facility] Stop: 01/22/19 07:13 Lactated Ringer's (Lactated Ringer's) 1,000 mls @ 75 mls/hr IV .[id number] [facility] Insulin Detemir (Levemir) 36 units SC HS [facility] Last Admin: 01/20/19 21:11 Dose: 36 unit Insulin Human Lispro (Humalog) 0 units SC ACCU-CHECK [facility]; Protocol Last Admin: 01/20/19 22:18 Dose: 3 units Lisinopril (Zestril) 20 mg PO DAILY [facility] Last Admin: 01/20/19 08:51 Dose: 20 mg Montelukast Sodium (Singulair) 10 mg PO DAILY [facility] Last Admin: 01/20/19 08:50 Dose: 10 mg Mupirocin (Bactroban Ointment) 1 applic TOP BID [facility] Last Admin: 01/20/19 17:31 Dose: 1 applic Oxycodone/Acetaminophen (Percocet 5/325 Mg Tab) 1 tab PO Q4 PRN PRN Reason: Pain, severe (8-10) Stop: 01/22/19 20:19 Pantoprazole Sodium (Protonix Ec Tab) 40 mg PO DAILY [facility] Last Admin: 01/20/19 08:51 Dose: 40 mg Propranolol HCl (Inderal) 20 mg PO Q12H [facility] Last Admin: 01/21/19 05:59 Dose: 20 mg Silver Sulfadiazine (Silvadene 1% 20 Gm) 1 ea TOP DAILY [facility] - Labs Labs: 01/20/19 06:17 01/20/19 06:17 PT 12.6 Seconds (9.8-13.1) 01/20/19 12:10 INR 1.1 01/20/19 12:10 - Constitutional Appears: Non-toxic, No Acute Distress - Eye Exam Eye Exam: Normal appearance - ENT Exam ENT Exam: Mucous Membranes Moist - Respiratory Exam Respiratory Exam: Clear to Ausculation Bilateral, NORMAL BREATHING PATTERN. absent: Accessory Muscle Use, Chest Wall Tenderness, Decreased Breath Sounds, Prolonged Expiratory Phase, Rales, Rhonchi, Wheezes, Respiratory Distress, Stridor - Cardiovascular Exam Cardiovascular Exam: REGULAR RHYTHM, +S1, +S2 - GI/Abdominal Exam GI & Abdominal Exam: Soft, Normal Bowel Sounds. absent: Distended, Firm, Guarding, Rigid, Tenderness, Rebound - Extremities Exam Extremities Exam: Full ROM, Normal Capillary Refill, Normal Inspection. absent: Calf Tenderness, Joint Swelling, Pedal Edema, Tenderness Additional comments: Left foot is wrapped well. Right foot with +2 dorsalis pedis and tibialis pedis pulses. - Neurological Exam Neurological Exam: Alert, Awake, Oriented x3 - Psychiatric Exam Psychiatric exam: Normal Affect, Normal Mood - Skin Skin Exam: Dry, Intact, Normal Color, Warm Assessment and Plan - Assessment and Plan (Free Text) Assessment: 53 year old female with PMH of IDDM and HTN admitted due to infected ulceration to her left hallux s/p wound debridement and left hallux bone biopsy POD #0. Plan: Infected ulcer on left hallux s/p wound debridement of left hallux and bone biopsy r/o Cellulitis vs OM - Foot XR: Findings concerning for small osteomyelitis focus medial aspect great toe distal phalanx. Contiguous regional soft tissue changes compatible with infection/cellulitis. - C/W Vanco (day 2) and zosyn IV (day 3) - pain management - ESR elevated - Podiatry consulted, recs appreciated- s/p wound debridement 01/20/19 - Cardiac consult appreciated- Dr. Lares Uncontrolled IDDM with hyperglycemia - Chronic - Insulin sliding scale, hypoglycemia protocol - Levemir: 30 units am and 36 units HS - Home meds resumed HTN - Chronic, controlled - Home meds resumed DVT ppx - Lovenox 40mg SC, on hold given surgery tomorrow
[2019-01-21] MEDS: Pantoprazole 40 mg EC Tab PO SCH (12:10)
[2019-01-21] MEDS ORDERED: Piperacillin/Tazobact 3.375 GM in Sodium Chloride 0.9% 100 ML IVPB SCH (14:00)
[2019-01-21] MEDS: Insulin Lispro (humaLOG) 100 Units/ml Inj SC SCH ×3 (15:15→22:35)
--- NOTE | 2019-01-21 21:59 | PN ---
DATE: 01/21/2019 SUBJECTIVE: The patient underwent left hallux debridement with bone biopsy. She denies any chest pain or shortness of breath. No reported ventricular arrhythmia. PHYSICAL EXAMINATION: VITAL SIGNS: Blood pressure 156/76, heart rate 91, temperature 99.5, respirations 16. HEENT: Normocephalic. CHEST: Clear. HEART: S1 and S2, regular. LABORATORY DATA: Today's blood sugars at 208, 127, and 310. ASSESSMENT: 1. Status post left hallux debridement and biopsy. 2. Uncontrolled diabetes mellitus. 3. Hypertension. RECOMMENDATIONS: Continue aspirin 81 mg once a day, hydrochlorothiazide 25 mg daily, Lipitor 20 mg once a day, IV Zosyn at 3.375 g every 8 hours, Zestril 20 mg once a day, vancomycin 1 g intravenously daily. Obtain a BMP and 12-lead EKG. Jared Lares MD
[2019-01-21] MEDS: Insulin Detemir 100 Units/ml Inj SC SCH (22:36)
[2019-01-22] MEDS: Piperacillin/Tazobact 3.375 GM in Sodium Chloride 0.9% 100 ML IVPB SCH ×5 (00:18→23:27)
[2019-01-22 06:10] LABS: HEMOGLOBIN 10.2 g/dL (12.0-16.0); MEAN CELL VOLUME 79.6 fl (81.0-99.0); MEAN CORPUSCULAR HGB CONC 32.7 g/dL (33.0-37.0); RBC 3.93 Mil/uL (3.80-5.20); RED CELL DISTRIBUTION WIDTH 13.6 % (11.5-14.5); WHITE BLOOD COUNT 6.7 K/uL (4.8-10.8)
[2019-01-22 06:23] LABS: BLOOD UREA NITROGEN 14 mg/dl (7-17); CALCIUM 8.6 mg/dL (8.4-10.2); GFR NON-AFRICAN AMERICAN > 60
[2019-01-22] MEDS: Insulin Lispro (humaLOG) 100 Units/ml Inj SC SCH ×5 (07:28→23:00)
[2019-01-22] MEDS: Insulin Detemir 100 Units/ml Inj SC SCH (09:02)
[2019-01-22] MEDS: Enoxaparin 40 mg Syringe SC SCH (09:06)
[2019-01-22] MEDS: Pantoprazole 40 mg EC Tab PO SCH (09:08)
[2019-01-22] MEDS ORDERED: Povidone Iodine Topical 10% Sol ONE (10:55)
--- NOTE | 2019-01-22 11:20 | CP.PCM.PN ---
<Duc Wise - Last Filed: 01/22/19 11:28> Subjective - Date & Time of Evaluation Date of Evaluation: 01/22/19 Time of Evaluation: 10:00 - Subjective Subjective: Patient seen at bedside in not acute distress. Patient had short episode of left sided CP radiating to back earlier today that resolved spontaneously. Denies CP at the time of exam and has no other complains. EKG was repeated and shows no new acute changes. Patients VS stable and WNL. She is s/p wound revision by Podiatry Yesterday and denies pain at this time. Afebrile. Objective - Vital Signs/Intake and Output Vital Signs (last 24 hours): Temp Pulse Resp BP Pulse Ox 98.9 F 88 20 153/79 H 97 01/22/19 07:42 01/22/19 09:09 01/22/19 07:42 01/22/19 09:09 01/22/19 07:42 - Medications Medications: Current Medications Acetaminophen (Tylenol 325mg Tab) 650 mg PO Q6 PRN PRN Reason: Pain, Mild (1-3) Amlodipine Besylate (Norvasc) 10 mg PO DAILY [facility] Last Admin: 01/22/19 09:08 Dose: 10 mg Aspirin (Aspirin Chewable) 81 mg PO DAILY [facility] Last Admin: 01/22/19 08:59 Dose: 81 mg Atorvastatin Calcium (Lipitor) 20 mg PO DAILY [facility] Last Admin: 01/22/19 09:07 Dose: 20 mg Dextrose (Dextrose 50% Inj) 0 ml IV STAT PRN; Protocol PRN Reason: Hypoglycemia Protocol Dextrose (Glutose 15) 0 gm PO ONCE PRN; Protocol PRN Reason: Hypoglycemia Protocol Enoxaparin Sodium (Lovenox) 40 mg SC DAILY [facility]; Protocol Last Admin: 01/22/19 09:06 Dose: 40 mg Fluticasone Propionate (Flonase) 1 spr ESTEFANY DAILY [facility] Last Admin: 01/22/19 09:00 Dose: Not Given Glucagon (Glucagen Diagnostic Kit) 0 mg IM STAT PRN; Protocol PRN Reason: Hypoglycemia Protocol Home Med (Linaclotide [Linzess]) 1 cap PO DAILY [facility] Hydrochlorothiazide (Hydrodiuril) 25 mg PO DAILY [facility] Last Admin: 01/22/19 09:01 Dose: 25 mg Piperacillin Sod/Tazobactam (Sod 3.375 gm/ Sodium Chloride) 100 mls @ 100 mls/hr IVPB 0000,0600,1200,1800 [facility]; Protocol Last Admin: 01/22/19 06:11 Dose: 100 mls/hr Vancomycin HCl 1 gm/ Sodium (Chloride) 250 mls @ 166.667 mls/hr IVPB Q12H [facility]; Protocol Last Admin: 01/22/19 11:00 Dose: Not Given Insulin Detemir (Levemir) 36 units SC HS [facility] Last Admin: 01/21/19 22:36 Dose: 36 unit Insulin Detemir (Levemir) 30 units SC ACB [facility] Last Admin: 01/22/19 09:02 Dose: 30 units Insulin Human Lispro (Humalog) 0 units SC ACCU-CHECK [facility]; Protocol Last Admin: 01/22/19 11:02 Dose: 3 units Lisinopril (Zestril) 20 mg PO DAILY [facility] Last Admin: 01/22/19 09:09 Dose: 20 mg Montelukast Sodium (Singulair) 10 mg PO DAILY [facility] Last Admin: 01/22/19 09:09 Dose: 10 mg Mupirocin (Bactroban Ointment) 1 applic TOP BID [facility] Last Admin: 01/22/19 09:00 Dose: Not Given Oxycodone/Acetaminophen (Percocet 5/325 Mg Tab) 1 tab PO Q4 PRN PRN Reason: Pain, severe (8-10) Stop: 01/22/19 20:19 Last Admin: 01/21/19 21:22 Dose: 1 tab Pantoprazole Sodium (Protonix Ec Tab) 40 mg PO DAILY [facility] Last Admin: 01/22/19 09:08 Dose: 40 mg Propranolol HCl (Inderal) 20 mg PO Q12H [facility] Last Admin: 01/22/19 09:01 Dose: 20 mg Silver Sulfadiazine (Silvadene 1% 20 Gm) 1 ea TOP DAILY [facility] Last Admin: 01/22/19 09:09 Dose: Not Given - Labs Labs: 01/22/19 05:18 01/22/19 05:18 PT 12.6 Seconds (9.8-13.1) 01/20/19 12:10 INR 1.1 01/20/19 12:10 - Constitutional Appears: Non-toxic, No Acute Distress - Eye Exam Eye Exam: EOMI, PERRL - ENT Exam ENT Exam: Mucous Membranes Moist - Respiratory Exam Respiratory Exam: Clear to Ausculation Bilateral, NORMAL BREATHING PATTERN - Cardiovascular Exam Cardiovascular Exam: Irregular Rhythm, +S1, +S2. absent: Gallop - GI/Abdominal Exam GI & Abdominal Exam: Soft, Normal Bowel Sounds. absent: Tenderness, Rebound - Extremities Exam Extremities Exam: absent: Calf Tenderness, Normal Inspection (left foot covered with dressing that is clean and dry. NO signs of acute neurovascular compromise), Pedal Edema - Neurological Exam Neurological Exam: Alert, Awake, Oriented x3 - Psychiatric Exam Psychiatric exam: Normal Affect, Normal Mood - Skin Skin Exam: Normal Color, Warm Assessment and Plan - Assessment and Plan (Free Text) Assessment: 53 year old female with PMH of IDDM and HTN admitted due to infected ulceration to her left hallux s/p wound debridement and left hallux bone biopsy POD #2. Plan: Infected ulcer on left hallux s/p wound debridement of left hallux and bone biop sy Foot XR: Findings concerning for small osteomyelitis focus medial aspect great toe distal phalanx. Contiguous regional soft tissue changes compatible with infection/cellulitis. Pain control ESR elevated Podiatry consulted, recs appreciated- s/p wound debridement 01/21/19 ID consulted, F/U recs Vanco ramdon ordered and low F/U WCx and bone biopsy MOnitor VS Increase Vanco to Q12h. C/w Zosyn Order repeat ESR Chest pain resolved EKG unchanged from admission Order trop x1 Cardio on board C/w Betablockers, Statins and ASA Had Lexiscan less than 1 m/a neg for ischemia Uncontrolled IDDM with hyperglycemia Chronic Insulin sliding scale, hypoglycemia protocol Levemir: 30 units am and 36 units HS Will continue monitor and adjusting as needed HTN Chronic, controlled Home meds resumed MOnitor DVT ppx Lovenox 40mg SC <Radha Plascencia - Last Filed: 01/22/19 16:41> Objective - Vital Signs/Intake and Output Vital Signs (last 24 hours): Temp Pulse Resp BP Pulse Ox 98.1 F 78 20 133/77 96 01/22/19 15:36 01/22/19 15:36 01/22/19 15:36 01/22/19 15:36 01/22/19 15:36 - Medications Medications: Current Medications Acetaminophen (Tylenol 325mg Tab) 650 mg PO Q6 PRN PRN Reason: Pain, Mild (1-3) Amlodipine Besylate (Norvasc) 10 mg PO DAILY [facility] Last Admin: 01/22/19 09:08 Dose: 10 mg Aspirin (Aspirin Chewable) 81 mg PO DAILY [facility] Last Admin: 01/22/19 08:59 Dose: 81 mg Atorvastatin Calcium (Lipitor) 20 mg PO DAILY [facility] Last Admin: 01/22/19 09:07 Dose: 20 mg Dextrose (Dextrose 50% Inj) 0 ml IV STAT PRN; Protocol PRN Reason: Hypoglycemia Protocol Dextrose (Glutose 15) 0 gm PO ONCE PRN; Protocol PRN Reason: Hypoglycemia Protocol Enoxaparin Sodium (Lovenox) 40 mg SC DAILY [facility]; Protocol Last Admin: 01/22/19 09:06 Dose: 40 mg Fluticasone Propionate (Flonase) 1 spr ESTEFANY DAILY [facility] Last Admin: 01/22/19 09:00 Dose: Not Given Glucagon (Glucagen Diagnostic Kit) 0 mg IM STAT PRN; Protocol PRN Reason: Hypoglycemia Protocol Hydrochlorothiazide (Hydrodiuril) 25 mg PO DAILY [facility] Last Admin: 01/22/19 09:01 Dose: 25 mg Piperacillin Sod/Tazobactam (Sod 3.375 gm/ Sodium Chloride) 100 mls @ 100 mls/h r IVPB 0000,0600,1200,1800 [facility]; Protocol Last Admin: 01/22/19 12:44 Dose: 100 mls/hr Vancomycin HCl 1 gm/ Sodium (Chloride) 250 mls @ 166.667 mls/hr IVPB Q12H [facility]; Protocol Last Admin: 01/22/19 11:00 Dose: Not Given Insulin Detemir (Levemir) 36 units SC HS [facility] Last Admin: 01/21/19 22:36 Dose: 36 unit Insulin Detemir (Levemir) 30 units SC ACB [facility] Last Admin: 01/22/19 09:02 Dose: 30 units Insulin Human Lispro (Humalog) 0 units SC ACCU-CHECK [facility]; Protocol Last Admin: 01/22/19 11:02 Dose: 3 units Lisinopril (Zestril) 20 mg PO DAILY [facility] Last Admin: 01/22/19 09:09 Dose: 20 mg Montelukast Sodium (Singulair) 10 mg PO DAILY [facility] Last Admin: 01/22/19 09:09 Dose: 10 mg Oxycodone/Acetaminophen (Percocet 5/325 Mg Tab) 1 tab PO Q4 PRN PRN Reason: Pain, severe (8-10) Stop: 01/22/19 20:19 Last Admin: 01/21/19 21:22 Dose: 1 tab Pantoprazole Sodium (Protonix Ec Tab) 40 mg PO DAILY [facility] Last Admin: 01/22/19 09:08 Dose: 40 mg Propranolol HCl (Inderal) 20 mg PO Q12H [facility] Last Admin: 01/22/19 09:01 Dose: 20 mg - Labs Labs: 01/22/19 05:18 01/22/19 05:18 PT 12.6 Seconds (9.8-13.1) 01/20/19 12:10 INR 1.1 01/20/19 12:10 Attending/Attestation - Attestation I have personally seen and examined this patient.: Yes I have fully participated in the care of the patient.: Yes I have reviewed all pertinent clinical information, including history, physical exam and plan: Yes Notes (Text): Left Hallux Infection/Abscess possible Osteomyelitis s/p Incision and DSrainage and Bone Biopsy - cont IV Zosyn , increase Vanco to gram q 12, check trough -Podiatry following pt Chest Pain - EKG : no change - Tropo : negative -cont ASA, satin , CHELI and BB DM type II with Hyperglycemia - Increase Levemir dose to 30 units q am and 20 q hs HTN - cont Norvasc, Propranolol, HCTZ and Lisinopril DVT proph -Lovenox
--- NOTE | 2019-01-22 12:18 | CP.PCM.PN ---
Subjective - Date & Time of Evaluation Date of Evaluation: 01/22/19 Time of Evaluation: 12:13 - Subjective Subjective: Podiatry progress note - Dr. Aiken 54F seen and evaluated at bedside this AM POD 1 s/p left foot hallux wound debridement. Resting comfortably. Denies pain today. Denies drainage or strikethrough in dressing. Has no other acute complaints. Denies n/v/f/c/sob. Objective - Vital Signs/Intake and Output Vital Signs (last 24 hours): Temp Pulse Resp BP Pulse Ox 97.5 F L 89 20 128/76 97 01/22/19 11:56 01/22/19 11:56 01/22/19 11:56 01/22/19 11:56 01/22/19 11:56 - Medications Medications: Current Medications Acetaminophen (Tylenol 325mg Tab) 650 mg PO Q6 PRN PRN Reason: Pain, Mild (1-3) Amlodipine Besylate (Norvasc) 10 mg PO DAILY [facility] Last Admin: 01/22/19 09:08 Dose: 10 mg Aspirin (Aspirin Chewable) 81 mg PO DAILY [facility] Last Admin: 01/22/19 08:59 Dose: 81 mg Atorvastatin Calcium (Lipitor) 20 mg PO DAILY [facility] Last Admin: 01/22/19 09:07 Dose: 20 mg Dextrose (Dextrose 50% Inj) 0 ml IV STAT PRN; Protocol PRN Reason: Hypoglycemia Protocol Dextrose (Glutose 15) 0 gm PO ONCE PRN; Protocol PRN Reason: Hypoglycemia Protocol Enoxaparin Sodium (Lovenox) 40 mg SC DAILY [facility]; Protocol Last Admin: 01/22/19 09:06 Dose: 40 mg Fluticasone Propionate (Flonase) 1 spr ESTEFANY DAILY [facility] Last Admin: 01/22/19 09:00 Dose: Not Given Glucagon (Glucagen Diagnostic Kit) 0 mg IM STAT PRN; Protocol PRN Reason: Hypoglycemia Protocol Home Med (Linaclotide [Linzess]) 1 cap PO DAILY [facility] Hydrochlorothiazide (Hydrodiuril) 25 mg PO DAILY [facility] Last Admin: 01/22/19 09:01 Dose: 25 mg Piperacillin Sod/Tazobactam (Sod 3.375 gm/ Sodium Chloride) 100 mls @ 100 mls/hr IVPB 0000,0600,1200,1800 [facility]; Protocol Last Admin: 04/27/19 06:11 Dose: 100 mls/hr Vancomycin HCl 1 gm/ Sodium (Chloride) 250 mls @ 166.667 mls/hr IVPB Q12H [facility]; Protocol Last Admin: 01/22/19 11:00 Dose: Not Given Insulin Detemir (Levemir) 36 units SC HS [facility] Last Admin: 01/21/19 22:36 Dose: 36 unit Insulin Detemir (Levemir) 30 units SC ACB [facility] Last Admin: 01/22/19 09:02 Dose: 30 units Insulin Human Lispro (Humalog) 0 units SC ACCU-CHECK [facility]; Protocol Last Admin: 01/22/19 11:02 Dose: 3 units Lisinopril (Zestril) 20 mg PO DAILY [facility] Last Admin: 01/22/19 09:09 Dose: 20 mg Montelukast Sodium (Singulair) 10 mg PO DAILY [facility] Last Admin: 01/22/19 09:09 Dose: 10 mg Mupirocin (Bactroban Ointment) 1 applic TOP BID [facility] Last Admin: 01/22/19 09:00 Dose: Not Given Oxycodone/Acetaminophen (Percocet 5/325 Mg Tab) 1 tab PO Q4 PRN PRN Reason: Pain, severe (8-10) Stop: 01/22/19 20:19 Last Admin: 01/21/19 21:22 Dose: 1 tab Pantoprazole Sodium (Protonix Ec Tab) 40 mg PO DAILY [facility] Last Admin: 01/22/19 09:08 Dose: 40 mg Propranolol HCl (Inderal) 20 mg PO Q12H [facility] Last Admin: 01/22/19 09:01 Dose: 20 mg Silver Sulfadiazine (Silvadene 1% 20 Gm) 1 ea TOP DAILY [facility] Last Admin: 01/22/19 09:09 Dose: Not Given - Labs Labs: 01/22/19 05:18 01/22/19 05:18 PT 12.6 Seconds (9.8-13.1) 01/20/19 12:10 INR 1.1 01/20/19 12:10 - Constitutional Appears: Non-toxic - Head Exam Head Exam: ATRAUMATIC - Extremities Exam Additional comments: LLE focused VASC: DP and PT 2/4, Cap refill < 3 seconds X 10, no edema noted to the LLE, mild edema at the left hallux NEURO: Diminished gross and protective sensations b/l. DERM: post operative wound appears stable, no necrotic tissue noted, mild erythema noted periwound, 2cc of pus drained from site, mild bleeding noted, cl inical signs of infection noted, no crepitus or malodor noted MSK: no pain on palpation to the base of the hallux at the 1st MTPJ, no pain on calf squeeze, no other obvious deformities, MMT 5/5 to all groups. - Neurological Exam Neurological Exam: Alert, Awake, Oriented x3 - Psychiatric Exam Psychiatric exam: Normal Affect Assessment and Plan - Assessment and Plan (Free Text) Assessment: 54F POD 1 left hallux diabetic wound debridement Plan: Patient seen and evaluated Discussed with Dr. Aiken VSDorothy, WBC 6.7 Operative path pending Continue IV abx Weight bearing to heel on left foot, continue in surgical shoe Wound cleansed with sterile saline and dressed with betadine soaked gauze as packing, telfa, and dry sterile dressing with light CHELI wrap Will continue to follow
[2019-01-22] MEDS ORDERED: Iodixanol 320 MG/ML 100 ML BOTTLE IV ONE (16:47)
[2019-01-22] MEDS ORDERED: Sodium Chloride 0.9% 50 ML IV ONE (16:47)
--- NOTE | 2019-01-22 17:27 | CARD ---
APPROVED REPORT Date of service: 01/22/2019 EKG Measurement Heart [id number] <Conclusion> Sinus rhythm with occasional premature ventricular complexes Possible Left atrial enlargement Septal infarct, age undetermined Abnormal ECG
--- NOTE | 2019-01-22 18:20 | CT ---
Date of service: 01/22/2019 PROCEDURE: CT Chest with contrast (Pulmonary Angiogram) HISTORY: Rule out PE. COMPARISON: None available. TECHNIQUE: Axial computed tomography images were obtained of the chest in the pulmonary arterial phase of enhancement. Coronal and sagittal reformatted images were created and reviewed. Intravenous contrast dose: 90 cc Visipaque 320 Radiation dose: Total exam DLP = 266.07 mGy-cm. This CT exam was performed using one or more of the following dose reduction techniques: Automated exposure control, adjustment of the mA and/or kV according to patient size, and/or use of iterative reconstruction technique. FINDINGS: PULMONARY ARTERIES: Visualized pulmonary trunk, right and left main, lobar and segmental subsegmental branches of the pulmonary arteries are well opacified with no definitive filling defects seen to suggest acute central pulmonary embolus.. Note that the subsegmental branches are poorly delineated Pulmonary trunk measures approximately 3.2 cm AORTA: No acute findings. No thoracic aortic aneurysm. Minor aortic atherosclerotic calcification or mural plaque present. LUNGS: Mild passive/dependent type atelectasis seen in the posterior upper and lower lung arguello. No acute consolidation. There appears to be a localized area of cystic bronchiectasis right lung base. PLEURAL SPACES: Unremarkable. No effusion or pneumothorax. HEART: Mild cardiomegaly... No significant pericardial effusion. LYMPH NODES: No lymphadenopathy. BONES, CHEST WALL: Unremarkable. No fracture or destructive lesion OTHER FINDINGS: There is a medium-sized hiatal hernia containing food debris/fluid likely due to reflux. IMPRESSION: No evidence of acute central pulmonary embolus. Mild passive/dependent type atelectasis seen in the posterior upper and lower lung arguello former more so than latter. Localized cystic bronchiectasis right lung base. Mild cardiomegaly. Medium-sized hiatal hernia containing food debris and fluid fluid likely due to reflux.
--- NOTE | 2019-01-22 19:11 | PN ---
DATE: 01/22/2019 SUBJECTIVE: The patient had a vague episode of chest discomfort, still feels shortness of breath today. She is currently comfortable. PHYSICAL EXAMINATION: VITAL SIGNS: Blood pressure 132/77, heart rate 78, temperature 98.1, respirations 20. HEENT: Pale conjunctivae. CHEST: Clear. HEART: S1 and S2, regular. LABORATORY DATA: Today's hemoglobin and hematocrit 10.1 and 31.3. White count and platelet are within normal limits. Today's SMA-7, sodium 135, potassium 4.3, chloride 98, CO2 of 32, glucose 111, BUN 14, creatinine 0.9. One set of troponin is negative. EKG performed today revealed sinus rhythm with occasional PVC, possible left atrial enlargement. ASSESSMENT: 1. Status post left hallux debridement and biopsy. 2. Uncontrolled diabetes mellitus. 3. Atypical chest discomfort. EKG is nonischemic. 4. Rule out pulmonary infection. RECOMMENDATIONS: Continue current aspirin 81 mg once a day,Inderal 20 mg once a day, hydrochlorothiazide 25 mg once a day, Lovenox 20 mg subcutaneously once a day, Zosyn 3.375 g intravenously every 8 hours, vancomycin 1 g intravenously every 12 hours, Zestril at 20 mg once a day. I will request chest CT angio to be performed on urgent basis. Jared Lares MD
[2019-01-22] MEDS ORDERED: Insulin Detemir 100 Units/ml Inj SC SCH (22:00)
[2019-01-23] MEDS: Piperacillin/Tazobact 3.375 GM in Sodium Chloride 0.9% 100 ML IVPB SCH ×3 (05:28→17:15)
[2019-01-23 06:31] LABS: BASO % 0.5 % (0.0-2.0); EOS # 0.2 K/uL (0.0-0.7); EOS % 3.2 % (0.0-4.0); HEMOGLOBIN 10.7 g/dL (12.0-16.0); LYMPH # 1.6 K/uL (1.0-4.3); LYMPH % 28.2 % (20.0-40.0); MEAN CELL VOLUME 78.8 fl (81.0-99.0); MEAN CORPUSCULAR HEMOGLOBIN 25.9 pg (27.0-31.0); MEAN CORPUSCULAR HGB CONC 32.9 g/dL (33.0-37.0); MEAN PLATELET VOLUME 8.1 fl (7.2-11.7); MONO # 0.5 K/uL (0.0-0.8); MONO % 8.4 % (0.0-10.0); NEUT # 3.4 K/uL (1.8-7.0); NEUT % 59.7 % (50.0-75.0); NRBC % 0.1 % (0.0-0.0); RBC 4.12 Mil/uL (3.80-5.20); RED CELL DISTRIBUTION WIDTH 13.3 % (11.5-14.5); WHITE BLOOD COUNT 5.7 K/uL (4.8-10.8)
[2019-01-23 06:38] LABS: BLOOD UREA NITROGEN 13 mg/dl (7-17); CALCIUM 8.8 mg/dL (8.4-10.2); GFR NON-AFRICAN AMERICAN > 60
[2019-01-23] MEDS: Insulin Lispro (humaLOG) 100 Units/ml Inj SC SCH ×2 (06:38→17:12)
--- NOTE | 2019-01-23 08:49 | CP.PCM.PN ---
<Rosibel Bhatti - Last Filed: 01/23/19 11:17> Subjective - Date & Time of Evaluation Date of Evaluation: 01/23/19 Time of Evaluation: 08:55 - Subjective Subjective: Patient seen and examined at bedside on rounds. Denies any complaints. States that episode of chest pain she endured yesterday is now resolved. Denies chest p ain, shortness of breath, nausea, vomiting, abdominal pain, diarrhea. Objective - Vital Signs/Intake and Output Vital Signs (last 24 hours): Temp Pulse Resp BP Pulse Ox 98.5 F 80 18 115/64 96 01/23/19 08:00 01/23/19 08:00 01/23/19 08:00 01/23/19 08:00 01/23/19 08:00 - Medications Medications: Current Medications Acetaminophen (Tylenol 325mg Tab) 650 mg PO Q6 PRN PRN Reason: Pain, Mild (1-3) Amlodipine Besylate (Norvasc) 10 mg PO DAILY [facility] Last Admin: 01/22/19 09:08 Dose: 10 mg Aspirin (Aspirin Chewable) 81 mg PO DAILY [facility] Last Admin: 01/22/19 08:59 Dose: 81 mg Atorvastatin Calcium (Lipitor) 20 mg PO DAILY [facility] Last Admin: 01/22/19 09:07 Dose: 20 mg Dextrose (Dextrose 50% Inj) 0 ml IV STAT PRN; Protocol PRN Reason: Hypoglycemia Protocol Dextrose (Glutose 15) 0 gm PO ONCE PRN; Protocol PRN Reason: Hypoglycemia Protocol Enoxaparin Sodium (Lovenox) 40 mg SC DAILY [facility]; Protocol Last Admin: 01/22/19 09:06 Dose: 40 mg Fluticasone Propionate (Flonase) 1 spr ESTEFANY DAILY [facility] Last Admin: 01/22/19 09:00 Dose: Not Given Glucagon (Glucagen Diagnostic Kit) 0 mg IM STAT PRN; Protocol PRN Reason: Hypoglycemia Protocol Hydrochlorothiazide (Hydrodiuril) 25 mg PO DAILY [facility] Last Admin: 01/22/19 09:01 Dose: 25 mg Piperacillin Sod/Tazobactam (Sod 3.375 gm/ Sodium Chloride) 100 mls @ 100 mls/hr IVPB 0000,0600,1200,1800 [facility]; Protocol Last Admin: 01/23/19 05:28 Dose: 100 mls/hr Vancomycin HCl 1 gm/ Sodium (Chloride) 250 mls @ 166.667 mls/hr IVPB Q12H [facility]; Protocol Last Admin: 01/22/19 21:28 Dose: 166.667 mls/hr Insulin Detemir (Levemir) 30 units SC ACB [facility] Last Admin: 01/22/19 09:02 Dose: 30 units Insulin Detemir (Levemir) 36 units SC HS [facility] Insulin Human Lispro (Humalog) 0 units SC ACCU-CHECK [facility]; Protocol Last Admin: 01/23/19 06:38 Dose: 6 units Insulin Human Lispro (Humalog) 6 units SC ACBD [facility] Lisinopril (Zestril) 20 mg PO DAILY [facility] Last Admin: 01/22/19 09:09 Dose: 20 mg Montelukast Sodium (Singulair) 10 mg PO DAILY [facility] Last Admin: 01/22/19 09:09 Dose: 10 mg Pantoprazole Sodium (Protonix Ec Tab) 40 mg PO DAILY [facility] Last Admin: 01/22/19 09:08 Dose: 40 mg Propranolol HCl (Inderal) 20 mg PO Q12H [facility] Last Admin: 01/22/19 20:16 Dose: 20 mg - Labs Labs: 01/23/19 05:15 01/23/19 05:15 PT 12.6 Seconds (9.8-13.1) 01/20/19 12:10 INR 1.1 01/20/19 12:10 - Constitutional Appears: Well, Non-toxic, No Acute Distress - ENT Exam ENT Exam: Mucous Membranes Moist - Respiratory Exam Respiratory Exam: Clear to Ausculation Bilateral, NORMAL BREATHING PATTERN. absent: Accessory Muscle Use, Chest Wall Tenderness, Decreased Breath Sounds, Prolonged Expiratory Phase, Rales, Rhonchi, Wheezes, Respiratory Distress, Stridor - Cardiovascular Exam Cardiovascular Exam: REGULAR RHYTHM, +S1, +S2 - GI/Abdominal Exam GI & Abdominal Exam: Soft, Normal Bowel Sounds. absent: Distended, Firm, Guard ing, Rigid, Tenderness, Rebound - Extremities Exam Extremities Exam: Normal Capillary Refill. absent: Calf Tenderness, Joint Swelling Additional comments: Left foot wrapped. Patient unable to discern point sensation on lower left foot. Popliteal pulse +1 on left limb. +2 dorsalis pedis and tibialis posterior on the right. Left foot well wrapped. - Neurological Exam Neurological Exam: Alert, Awake, Oriented x3 - Psychiatric Exam Psychiatric exam: Normal Affect, Normal Mood - Skin Skin Exam: Dry, Intact, Normal Color, Warm Assessment and Plan - Assessment and Plan (Free Text) Assessment: 53 year old female with PMH of IDDM and HTN admitted due to infected ulceration to her left hallux s/p wound debridement and left hallux bone biopsy POD #2. Plan: Infected ulcer on left hallux s/p wound debridement of left hallux and bone biopsy r/o Cellulitis vs OM - S/P wound debridement and left hallux bone biopsy 01/20/19 - C/W Vanco and zosyn IV - Vanco trough tomorrow before 8th dose - pain management - Podiatry consulted, recs appreciated - Cardiac consult appreciated- Dr. Lares: - F/U bone biopsy - Repeat ESR : 111 - F/U CRP Chest pain - resolved - EKG unchanged from admission - Trop x1: negative - Chest CT PE protocol: No evidence of acute pulmonary embolus; mild atelectasis in posterior upper and lower lung arguello; localized cystic bronchiectasis right lung base. Medium size hiatal hernia containing food debris and fluid likely secondary to reflux - Cardio on board - C/w Betablockers, Statins and ASA - Had Lexiscan less than 1 m/a neg for ischemia Uncontrolled IDDM with hyperglycemia - Chronic - Insulin sliding scale, hypoglycemia protocol - Levemir: 30 units am and 36 units HS - Lispro 6 units ACBD - Home meds resumed HTN - Chronic, controlled - Home meds resumed DVT ppx - Lovenox 40mg SC <Radha Plascencia - Last Filed: 01/23/19 15:32> Objective - Vital Signs/Intake and Output Vital Signs (last 24 hours): Temp Pulse Resp BP Pulse Ox 98.2 F 82 18 151/91 H 99 01/23/19 13:00 01/23/19 13:00 01/23/19 13:00 01/23/19 13:00 01/23/19 13:00 - Medications Medications: Current Medications Acetaminophen (Tylenol 325mg Tab) 650 mg PO Q6 PRN PRN Reason: Pain, Mild (1-3) Amlodipine Besylate (Norvasc) 10 mg PO DAILY [facility] Last Admin: 01/23/19 10:13 Dose: 10 mg Aspirin (Aspirin Chewable) 81 mg PO DAILY [facility] Last Admin: 01/23/19 10:05 Dose: 81 mg Atorvastatin Calcium (Lipitor) 20 mg PO DAILY [facility] Last Admin: 01/23/19 10:14 Dose: 20 mg Dextrose (Dextrose 50% Inj) 0 ml IV STAT PRN; Protocol PRN Reason: Hypoglycemia Protocol Dextrose (Glutose 15) 0 gm PO ONCE PRN; Protocol PRN Reason: Hypoglycemia Protocol Enoxaparin Sodium (Lovenox) 40 mg SC DAILY [facility]; Protocol Last Admin: 01/23/19 10:11 Dose: 40 mg Fluticasone Propionate (Flonase) 1 spr ESTEFANY DAILY [facility] Last Admin: 01/23/19 10:06 Dose: Not Given Glucagon (Glucagen Diagnostic Kit) 0 mg IM STAT PRN; Protocol PRN Reason: Hypoglycemia Protocol Hydrochlorothiazide (Hydrodiuril) 25 mg PO DAILY [facility] Last Admin: 01/23/19 10:07 Dose: 25 mg Piperacillin Sod/Tazobactam (Sod 3.375 gm/ Sodium Chloride) 100 mls @ 100 mls/hr IVPB 0000,0600,1200,1800 [facility]; Protocol Last Admin: 01/23/19 12:41 Dose: 100 mls/hr Vancomycin HCl 1 gm/ Sodium (Chloride) 250 mls @ 166.667 mls/hr IVPB Q12H [facility]; Protocol Last Admin: 01/23/19 10:17 Dose: 166.667 mls/hr Insulin Detemir (Levemir) 30 units SC ACB [facility] Last Admin: 01/23/19 10:09 Dose: 30 units Insulin Detemir (Levemir) 36 units SC HS [facility] Insulin Human Lispro (Humalog) 0 units SC ACCU-CHECK [facility]; Protocol Last Admin: 01/23/19 06:38 Dose: 6 units Insulin Human Lispro (Humalog) 6 units SC ACBD [facility] Lisinopril (Zestril) 20 mg PO DAILY [facility] Last Admin: 01/23/19 10:16 Dose: 20 mg Montelukast Sodium (Singulair) 10 mg PO DAILY [facility] Last Admin: 01/23/19 10:15 Dose: 10 mg Pantoprazole Sodium (Protonix Ec Tab) 40 mg PO DAILY [facility] Last Admin: 01/23/19 10:15 Dose: 40 mg Propranolol HCl (Inderal) 20 mg PO Q12H [facility] Last Admin: 01/23/19 10:07 Dose: 20 mg - Labs Labs: 01/23/19 05:15 01/23/19 05:15 PT 12.6 Seconds (9.8-13.1) 01/20/19 12:10 INR 1.1 01/20/19 12:10 Attending/Attestation - Attestation I have personally seen and examined this patient.: Yes I have fully participated in the care of the patient.: Yes I have reviewed all pertinent clinical information, including history, physical exam and plan: Yes Notes (Text): Left Hallux Infection/Abscess possible Osteomyelitis s/p Incision and Drainage and Bone Biopsy - cont IV Zosyn , increase Vanco to gram q 12, check trough -Podiatry following pt -await Bone biopsy result _ ID consulted Chest Pain prob GERD - EKG : no change - Trop : negative -cont ASA, satin , CHELI and BB -CTA pUlm : neg PE , noted food debris in stomach DM type II with Hyperglycemia - Increase Levemir dose to 30 units q am and 36 q hs, add Lispro 6 units TID AC HTN - cont Norvasc, Propranolol, HCTZ and Lisinopril DVT proph -Lovenox 01/23/19 15:32
[2019-01-23] MEDS: Insulin Detemir 100 Units/ml Inj SC SCH ×2 (10:09→22:11)
[2019-01-23] MEDS: Enoxaparin 40 mg Syringe SC SCH (10:11)
[2019-01-23] MEDS: Pantoprazole 40 mg EC Tab PO SCH (10:15)
--- NOTE | 2019-01-23 11:15 | CP.PCM.PN ---
Subjective - Date & Time of Evaluation Date of Evaluation: 01/23/19 Time of Evaluation: 11:12 - Subjective Subjective: Podiatry progress note - Dr. Aiken 54F seen and evaluated at bedside this AM POD 2 s/p left foot hallux wound debridement. Resting comfortably. Denies pain today. Denies drainage or strikethrough in dressing. Has no other acute complaints. Denies n/v/f/c/sob. Objective - Vital Signs/Intake and Output Vital Signs (last 24 hours): Temp Pulse Resp BP Pulse Ox 98.5 F 80 18 115/64 96 01/23/19 08:00 01/23/19 10:16 01/23/19 08:00 01/23/19 10:16 01/23/19 08:00 - Medications Medications: Current Medications Acetaminophen (Tylenol 325mg Tab) 650 mg PO Q6 PRN PRN Reason: Pain, Mild (1-3) Amlodipine Besylate (Norvasc) 10 mg PO DAILY [facility] Last Admin: 01/23/19 10:13 Dose: 10 mg Aspirin (Aspirin Chewable) 81 mg PO DAILY [facility] Last Admin: 01/23/19 10:05 Dose: 81 mg Atorvastatin Calcium (Lipitor) 20 mg PO DAILY [facility] Last Admin: 01/23/19 10:14 Dose: 20 mg Dextrose (Dextrose 50% Inj) 0 ml IV STAT PRN; Protocol PRN Reason: Hypoglycemia Protocol Dextrose (Glutose 15) 0 gm PO ONCE PRN; Protocol PRN Reason: Hypoglycemia Protocol Enoxaparin Sodium (Lovenox) 40 mg SC DAILY [facility]; Protocol Last Admin: 01/23/19 10:11 Dose: 40 mg Fluticasone Propionate (Flonase) 1 spr ESTEFANY DAILY [facility] Last Admin: 01/23/19 10:06 Dose: Not Given Glucagon (Glucagen Diagnostic Kit) 0 mg IM STAT PRN; Protocol PRN Reason: Hypoglycemia Protocol Hydrochlorothiazide (Hydrodiuril) 25 mg PO DAILY [facility] Last Admin: 01/23/19 10:07 Dose: 25 mg Piperacillin Sod/Tazobactam (Sod 3.375 gm/ Sodium Chloride) 100 mls @ 100 mls/hr IVPB 0000,0600,1200,1800 [facility]; Protocol Last Admin: 01/23/19 05:28 Dose: 100 mls/hr Vancomycin HCl 1 gm/ Sodium (Chloride) 250 mls @ 166.667 mls/hr IVPB Q12H [facility]; Protocol Last Admin: 01/23/19 10:17 Dose: 166.667 mls/hr Insulin Detemir (Levemir) 30 units SC ACB [facility] Last Admin: 01/23/19 10:09 Dose: 30 units Insulin Detemir (Levemir) 36 units SC HS [facility] Insulin Human Lispro (Humalog) 0 units SC ACCU-CHECK [facility]; Protocol Last Admin: 01/23/19 06:38 Dose: 6 units Insulin Human Lispro (Humalog) 6 units SC ACBD [facility] Lisinopril (Zestril) 20 mg PO DAILY [facility] Last Admin: 01/23/19 10:16 Dose: 20 mg Montelukast Sodium (Singulair) 10 mg PO DAILY [facility] Last Admin: 01/23/19 10:15 Dose: 10 mg Pantoprazole Sodium (Protonix Ec Tab) 40 mg PO DAILY [facility] Last Admin: 01/23/19 10:15 Dose: 40 mg Propranolol HCl (Inderal) 20 mg PO Q12H [facility] Last Admin: 01/23/19 10:07 Dose: 20 mg - Labs Labs: 01/23/19 05:15 01/23/19 05:15 PT 12.6 Seconds (9.8-13.1) 01/20/19 12:10 INR 1.1 01/20/19 12:10 - Constitutional Appears: Non-toxic - Head Exam Head Exam: ATRAUMATIC - Extremities Exam Additional comments: LLE focused VASC: DP and PT 2/4, Cap refill < 3 seconds X 10, no edema noted to the LLE, mild edema at the left hallux NEURO: Diminished gross and protective sensations b/l. DERM: post operative wound appears stable, no necrotic tissue noted, mild erythema noted periwound, 1cc of pus drained from site this AM, mild bleeding noted, clinical signs of infection noted, no crepitus or malodor noted; hyperkeratotic tissue appreciated, manuallly removed from wound borders MSK: no pain on palpation to the base of the hallux at the 1st MTPJ, no pain on calf squeeze, no other obvious deformities, MMT 5/5 to all groups. - Neurological Exam Neurological Exam: Alert, Awake, Oriented x3 - Psychiatric Exam Psychiatric exam: Normal Affect Assessment and Plan - Assessment and Plan (Free Text) Assessment: 54F POD 2 left hallux diabetic wound debridement Plan: Patient seen and evaluated with Dr. Aiken VSS, WBC 5.7 Operative path pending Op culture - beta hemolytic strep group B Continue IV abx Weight bearing to heel on left foot, continue in surgical shoe Wound cleansed with sterile saline and packed with betadine soaked sterile 1/4" packing, telfa, and dry sterile dressing with light CHELI wrap Will continue to follow
[2019-01-24] MEDS: Piperacillin/Tazobact 3.375 GM in Sodium Chloride 0.9% 100 ML IVPB SCH ×4 (00:47→17:19)
--- NOTE | 2019-01-24 02:09 | PN ---
DATE: 01/23/2019 SUBJECTIVE: The patient denies any chest pain or shortness of breath. PHYSICAL EXAMINATION: VITAL SIGNS: Blood pressure 151/91, heart rate 82, temperature 98.2, respirations 18. HEENT: Pale conjunctivae. CHEST: Clear. HEART: Sounds are regular. EXTREMITIES: Trace right leg edema. LABORATORY DATA: Today's SMA-7: Sodium 135, potassium 3.8, chloride 98, CO2 of 33, glucose , BUN 15, creatinine 0.7. Today's hemoglobin and hematocrit 10.7 and 32.5, white count and platelet count are within normal limits. Chest CT angio performed yesterday revealed no evidence of acute central pulmonary embolus. Mild passive dependent-type atelectasis seen in the posterior upper and lower lung arguello. Localized cystic bronchiectasis in right lung base, mild cardiomegaly. ASSESSMENT: 1. Status post left hallux debridement and biopsy. 2. Diabetes mellitus. 3. Basal atelectasis. 4. Hypertension. RECOMMENDATIONS: Continue aspirin 81 mg once a day, hydrochlorothiazide 25 mg once a day, Inderal 20 mg once a day, subcutaneous Lovenox 40 mg once a day, Lipitor 20 mg once a day, Zosyn at 3.375 g intravenously every 6 hours, IV vancomycin 1 g every 12 hours and Zestril 20 mg daily. Jared Lares MD
[2019-01-24 05:33] LABS: HEMOGLOBIN 11.1 g/dL (12.0-16.0); MEAN CELL VOLUME 78.9 fl (81.0-99.0); MEAN CORPUSCULAR HEMOGLOBIN 25.7 pg (27.0-31.0); MEAN CORPUSCULAR HGB CONC 32.6 g/dL (33.0-37.0); RBC 4.32 Mil/uL (3.80-5.20); RED CELL DISTRIBUTION WIDTH 13.5 % (11.5-14.5); WHITE BLOOD COUNT 5.2 K/uL (4.8-10.8)
[2019-01-24 05:39] LABS: BLOOD UREA NITROGEN 11 mg/dl (7-17); CALCIUM 8.8 mg/dL (8.4-10.2); GFR NON-AFRICAN AMERICAN > 60
--- NOTE | 2019-01-24 08:46 | CP.PCM.PN ---
Subjective - Date & Time of Evaluation Date of Evaluation: 01/24/19 Time of Evaluation: 09:00 - Subjective Subjective: Patient seen and examined at bedside. Denies any complaints. Denies chest pain, shortness of breath, abdominal pain, nausea, vomiting or urinary symptoms. Reports she has been tolerating PO intake and had a BM. Hemodynamically stable. Objective - Vital Signs/Intake and Output Vital Signs (last 24 hours): Temp Pulse Resp BP Pulse Ox 98.2 F 86 20 127/73 97 01/24/19 08:13 01/24/19 08:13 01/24/19 08:13 01/24/19 08:13 01/24/19 08:13 - Medications Medications: Current Medications Acetaminophen (Tylenol 325mg Tab) 650 mg PO Q6 PRN PRN Reason: Pain, Mild (1-3) Amlodipine Besylate (Norvasc) 10 mg PO DAILY [facility] Last Admin: 01/23/19 10:13 Dose: 10 mg Aspirin (Aspirin Chewable) 81 mg PO DAILY [facility] Last Admin: 01/23/19 10:05 Dose: 81 mg Atorvastatin Calcium (Lipitor) 20 mg PO DAILY [facility] Last Admin: 01/23/19 10:14 Dose: 20 mg Dextrose (Dextrose 50% Inj) 0 ml IV STAT PRN; Protocol PRN Reason: Hypoglycemia Protocol Dextrose (Glutose 15) 0 gm PO ONCE PRN; Protocol PRN Reason: Hypoglycemia Protocol Enoxaparin Sodium (Lovenox) 40 mg SC DAILY [facility]; Protocol Last Admin: 01/23/19 10:11 Dose: 40 mg Fluticasone Propionate (Flonase) 1 spr ESTEFANY DAILY [facility] Last Admin: 01/23/19 10:06 Dose: Not Given Glucagon (Glucagen Diagnostic Kit) 0 mg IM STAT PRN; Protocol PRN Reason: Hypoglycemia Protocol Hydrochlorothiazide (Hydrodiuril) 25 mg PO DAILY [facility] Last Admin: 01/23/19 10:07 Dose: 25 mg Piperacillin Sod/Tazobactam (Sod 3.375 gm/ Sodium Chloride) 100 mls @ 100 mls/hr IVPB 0000,0600,1200,1800 [facility]; Protocol Last Admin: 01/24/19 06:48 Dose: 100 mls/hr Vancomycin HCl 1 gm/ Sodium (Chloride) 250 mls @ 166.667 mls/hr IVPB Q12H [facility]; Protocol Last Admin: 01/23/19 22:14 Dose: 166.667 mls/hr Insulin Detemir (Levemir) 30 units SC ACB [facility] Last Admin: 01/23/19 10:09 Dose: 30 units Insulin Detemir (Levemir) 36 units SC HS [facility] Last Admin: 01/23/19 22:11 Dose: 36 units Insulin Human Lispro (Humalog) 0 units SC ACCU-CHECK [facility]; Protocol Last Admin: 01/23/19 06:38 Dose: 6 units Insulin Human Lispro (Humalog) 6 units SC ACBD [facility] Last Admin: 01/23/19 17:12 Dose: 6 units Lisinopril (Zestril) 20 mg PO DAILY [facility] Last Admin: 01/23/19 10:16 Dose: 20 mg Montelukast Sodium (Singulair) 10 mg PO DAILY [facility] Last Admin: 01/23/19 10:15 Dose: 10 mg Pantoprazole Sodium (Protonix Ec Tab) 40 mg PO DAILY [facility] Last Admin: 01/23/19 10:15 Dose: 40 mg Propranolol HCl (Inderal) 20 mg PO Q12H [facility] Last Admin: 01/23/19 22:10 Dose: 20 mg - Labs Labs: 01/24/19 04:55 01/24/19 04:55 PT 12.6 Seconds (9.8-13.1) 01/20/19 12:10 INR 1.1 01/20/19 12:10 - Constitutional Appears: Non-toxic, No Acute Distress - Eye Exam Eye Exam: Normal appearance - ENT Exam ENT Exam: Mucous Membranes Moist - Respiratory Exam Respiratory Exam: Clear to Ausculation Bilateral, NORMAL BREATHING PATTERN. absent: Accessory Muscle Use, Chest Wall Tenderness, Decreased Breath Sounds, Prolonged Expiratory Phase, Rales, Rhonchi, Wheezes, Respiratory Distress, Stridor - Cardiovascular Exam Cardiovascular Exam: REGULAR RHYTHM, +S1, +S2 - GI/Abdominal Exam GI & Abdominal Exam: Soft, Normal Bowel Sounds. absent: Distended, Firm, Guarding, Rigid, Tenderness, Mass, Rebound - Extremities Exam Extremities Exam: Normal Capillary Refill, Normal Inspection. absent: Calf Tenderness, Joint Swelling, Pedal Edema, Tenderness - Neurological Exam Neurological Exam: Alert, Awake, Oriented x3 - Psychiatric Exam Psychiatric exam: Normal Affect, Normal Mood - Skin Skin Exam: Dry, Intact, Normal Color, Warm Assessment and Plan - Assessment and Plan (Free Text) Assessment: 53 year old female with PMH of IDDM and HTN admitted due to infected ulceration to her left hallux s/p wound debridement and left hallux bone biopsy POD #3. Plan: 1. Infected ulcer on left hallux s/p wound debridement of left hallux and bone biopsy r/o Cellulitis vs OM - S/P wound debridement and left hallux bone biopsy 01/20/19 - C/W Vanco and zosyn IV - Vanco trough today before 8th dose - pain management - Podiatry consulted, recs appreciated - Cardiac consult appreciated- Dr. Lares, continue current management - F/U bone biopsy - Wound culture: Group B strep - ID consult appreciated - Repeat ESR : 111 Chest pain - resolved - EKG unchanged from admission - Trop x1: negative - Chest CT PE protocol: No evidence of acute pulmonary embolus; mild atelectasis in posterior upper and lower lung arguello; localized cystic bronchiectasis right lung base. Medium size hiatal hernia containing food debris and fluid likely secondary to reflux - Cardio on board - C/w Beta blockers, Statins and ASA - Had Lexiscan less than 1 m/a neg for ischemia Uncontrolled IDDM with hyperglycemia - Chronic - Insulin sliding scale, hypoglycemia protocol - increased Levemir to 40 units am and c/w Levemir 36 units HS - increased Lispro to 8 units ACBD - Home meds resumed HTN - Chronic, controlled - Home meds resumed DVT ppx - Lovenox 40mg SC
[2019-01-24] MEDS: Insulin Lispro (humaLOG) 100 Units/ml Inj SC SCH ×2 (09:18→16:15)
[2019-01-24] MEDS: Enoxaparin 40 mg Syringe SC SCH (09:20)
[2019-01-24] MEDS: Insulin Detemir 100 Units/ml Inj SC SCH ×2 (09:24→22:37)
[2019-01-24] MEDS: Pantoprazole 40 mg EC Tab PO SCH (09:26)
--- NOTE | 2019-01-24 10:01 | CP.PCM.PN ---
Subjective - Date & Time of Evaluation Date of Evaluation: 01/24/19 Time of Evaluation: 13:50 - Subjective Subjective: Podiatry progress note - Dr. Aiken 54F seen and evaluated at bedside this AM POD 3 s/p left foot hallux wound debridement. Resting comfortably. Denies pain today. Denies drainage or strikethrough in dressing. Has no other acute complaints. Denies n/v/f/c/sob. Objective - Vital Signs/Intake and Output Vital Signs (last 24 hours): Temp Pulse Resp BP Pulse Ox 98.2 F 86 20 127/73 97 01/24/19 08:13 01/24/19 09:27 01/24/19 08:13 01/24/19 09:27 01/24/19 08:13 - Medications Medications: Current Medications Acetaminophen (Tylenol 325mg Tab) 650 mg PO Q6 PRN PRN Reason: Pain, Mild (1-3) Amlodipine Besylate (Norvasc) 10 mg PO DAILY [facility] Last Admin: 01/24/19 09:26 Dose: 10 mg Aspirin (Aspirin Chewable) 81 mg PO DAILY [facility] Last Admin: 01/24/19 09:17 Dose: 81 mg Atorvastatin Calcium (Lipitor) 20 mg PO DAILY [facility] Last Admin: 01/24/19 09:25 Dose: 20 mg Dextrose (Dextrose 50% Inj) 0 ml IV STAT PRN; Protocol PRN Reason: Hypoglycemia Protocol Dextrose (Glutose 15) 0 gm PO ONCE PRN; Protocol PRN Reason: Hypoglycemia Protocol Enoxaparin Sodium (Lovenox) 40 mg SC DAILY [facility]; Protocol Last Admin: 01/24/19 09:20 Dose: 40 mg Fluticasone Propionate (Flonase) 1 spr ESTEFANY DAILY [facility] Last Admin: 01/24/19 09:17 Dose: Not Given Glucagon (Glucagen Diagnostic Kit) 0 mg IM STAT PRN; Protocol PRN Reason: Hypoglycemia Protocol Hydrochlorothiazide (Hydrodiuril) 25 mg PO DAILY [facility] Last Admin: 01/24/19 09:22 Dose: 25 mg Piperacillin Sod/Tazobactam (Sod 3.375 gm/ Sodium Chloride) 100 mls @ 100 mls/hr IVPB 0000,0600,1200,1800 [facility]; Protocol Last Admin: 01/24/19 06:48 Dose: 100 mls/hr Vancomycin HCl 1 gm/ Sodium (Chloride) 250 mls @ 166.667 mls/hr IVPB Q12H [facility]; Protocol Last Admin: 01/23/19 22:14 Dose: 166.667 mls/hr Insulin Detemir (Levemir) 30 units SC ACB [facility] Last Admin: 01/24/19 09:24 Dose: 30 units Insulin Detemir (Levemir) 36 units SC HS [facility] Last Admin: 01/23/19 22:11 Dose: 36 units Insulin Human Lispro (Humalog) 0 units SC ACCU-CHECK [facility]; Protocol Last Admin: 01/23/19 06:38 Dose: 6 units Insulin Human Lispro (Humalog) 6 units SC ACBD [facility] Last Admin: 01/24/19 09:18 Dose: 6 units Lisinopril (Zestril) 20 mg PO DAILY [facility] Last Admin: 01/24/19 09:27 Dose: 20 mg Montelukast Sodium (Singulair) 10 mg PO DAILY [facility] Last Admin: 01/24/19 09:27 Dose: 10 mg Pantoprazole Sodium (Protonix Ec Tab) 40 mg PO DAILY [facility] Last Admin: 01/24/19 09:26 Dose: 40 mg Propranolol HCl (Inderal) 20 mg PO Q12H [facility] Last Admin: 01/24/19 09:23 Dose: 20 mg - Labs Labs: 01/24/19 04:55 01/24/19 04:55 PT 12.6 Seconds (9.8-13.1) 01/20/19 12:10 INR 1.1 01/20/19 12:10 - Constitutional Appears: Well, Non-toxic, No Acute Distress - Head Exam Head Exam: ATRAUMATIC, NORMOCEPHALIC - Extremities Exam Additional comments: LLE focused VASC: DP and PT 2/4, Cap refill < 3 seconds X 10, no edema noted to the LLE, mild edema at the left hallux NEURO: Diminished gross and protective sensations b/l. DERM: post operative wound appears stable, no necrotic tissue noted, mild erythema noted periwound, 1cc of pus drained from site this AM, mild bleeding noted, clinical signs of infection noted, no crepitus or malodor noted; hyperkeratotic tissue appreciated, manuallly removed from wound borders MSK: no pain on palpation to the base of the hallux at the 1st MTPJ, no pain on calf squeeze, no other obvious deformities, MMT 5/5 to all groups. - Neurological Exam Neurological Exam: Alert, Awake, Oriented x3 - Psychiatric Exam Psychiatric exam: Normal Affect, Normal Mood Assessment and Plan - Assessment and Plan (Free Text) Assessment: 54F POD 3 left hallux diabetic wound debridement Plan: Patient seen and evaluated VSS, WBC 5.2 Operative path pending Op culture - beta hemolytic strep group B Continue IV abx Weight bearing to heel on left foot, continue in surgical shoe Wound cleansed with sterile saline and packed with betadine soaked sterile 1/4" packing, and dry sterile dressing with light CHELI wrap Will continue to follow
--- NOTE | 2019-01-24 16:17 | PN ---
DATE: 01/24/2019 SUBJECTIVE: The patient denies any shortness of breath or chest pain. No reported ventricular arrhythmia. PHYSICAL EXAMINATION VITAL SIGNS: Blood pressure 127/70, heart rate 82, temperature 98.1, respirations 20. HEENT: Normocephalic. CHEST: Clear. HEART: S1 and S2, regular. EXTREMITIES: No calf tenderness. LABORATORY DATA: Today's hemoglobin and hematocrit 11.1 and 34.1, white count and platelet count are within normal limits. Today's SMA-7 was within normal limits except for glucose of 576 and carbon dioxide of 32. ASSESSMENT: 1. Status post left hallux debridement and biopsy. 2. Uncontrolled diabetes mellitus. 3. Hypertension. RECOMMENDATIONS: Continue aspirin 81 mg once a day, hydrochlorothiazide 25 mg once a day, Inderal 20 mg twice a day, Lipitor 20 mg once a day, Norvasc at 10 mg once a day, Zosyn at 3.375 g intravenously every 6 hours, vancomycin 1 g intravenously every 12 hours, Zestril at 20 mg once a day. The patient may discontinue telemetry. Jared Lares MD
--- NOTE | 2019-01-24 20:52 | OP ---
PROCEDURE DATE: 01/21/2019 SURGEON: Penny Aiken DPM [employer] COMPENSATION CLAIMS ANALYST: Lian Ha, PGY-1 ANESTHESIA: General LMA with local. PREOPERATIVE DIAGNOSIS: Left hallux osteomyelitis. POSTOPERATIVE DIAGNOSIS: Left hallux osteomyelitis. PROCEDURE: Left hallux bone biopsy and wound debridement. INDICATION: The patient is a 53-year-old female with the above diagnosis. The patient has exhausted all conservative treatment at this time and now requires surgical intervention. The patient signed the consent after careful explanation of the risks, benefits, complications, and alternatives for surgical procedures. No guarantees were given nor implied. N.p.o. status was confirmed prior to taking the patient to the OR. PREPARATION: The patient was brought into the operating room and placed on the operating room table in the supine position. Time-out was performed for identification of the correct patient and procedure. After induction of IV sedation, the patient received a total of 20 mL of 0.5% Marcaine plain in a [place] block type fashion. Once local anesthesia was achieved, left lower extremity was then prepped and draped in normal sterile manner, and the procedure began. No tourniquet was used during the procedure. DESCRIPTION OF PROCEDURE: Attention was directed to the left hallux where approximately 2.1 cm x 1.1 cm ulceration was noted with depth of bone at the plantar aspect. The ulceration was noted to be composed of granulating fibrotic tissue, pus was expressed and noted at the wound bed. Mechanical debridement was performed with a sterile #15 blade and Adson pickup as well as a rongeur to remove all fibrotic and nonviable tissue removing base and wound margins. Tunnels were opened with a hemostat and all appreciated pus was expressed. All hyperkeratotic and nonviable tissues were excised and passed off the table. Intraoperative wound cultures were taken. The site was then cleansed with sterile saline using a bulb syringe and a clean culture was also taken. Using a Jamshidi needle, bone biopsy was take at the level of the proximal phalanx of the left hallux. The site was then packed with Betadine-soaked boss and dressed with Telfa, dry sterile dressing, and light Yinka wrap. POSTOPERATIVE CONDITION: The patient tolerated the anesthesia and procedure well and escorted to the recovery room with vital signs stable and neurovascular status intact to the left lower extremity. The patient is to be weightbearing as tolerated to the left heel and a surgical shoe. Podiatry will continue to follow the patient while in-house and will be seen by Dr. Aiken in clinic upon discharge. LIAN WILLARDOWITZ Penny Aiken DPM
[2019-01-24 22:17] LABS: SQUAMOUS EPITHIAL 1 /hpf (0-5); URINE BILIRUBIN NEGATIVE (NEGATIVE); URINE BLOOD NEGATIVE (NEGATIVE); URINE CLARITY CLEAR (Clear); URINE COLOR YELLOW (YELLOW); URINE GLUCOSE (UA) >=500 mg/dL (NEGATIVE); URINE HYALINE CAST 0-2 /hpf (0-2); URINE LEUKOCYTE ESTERASE NEG Leu/uL (Negative); URINE PROTEIN 30 mg/dL (NEGATIVE); URINE UROBILINOGEN 0.2-1.0 mg/dL (0.2-1.0)
[2019-01-25] MEDS: Piperacillin/Tazobact 3.375 GM in Sodium Chloride 0.9% 100 ML IVPB SCH ×4 (00:19→18:05)
[2019-01-25] MEDS ORDERED: Insulin Detemir 100 Units/ml Inj SC SCH (07:30)
[2019-01-25] MEDS: Pantoprazole 40 mg EC Tab PO SCH (09:16)
[2019-01-25] MEDS: Enoxaparin 40 mg Syringe SC SCH (09:16)
[2019-01-25] MEDS: Insulin Lispro (humaLOG) 100 Units/ml Inj SC SCH ×4 (09:20→21:26)
--- NOTE | 2019-01-25 10:27 | CP.PCM.PN ---
Subjective - Date & Time of Evaluation Date of Evaluation: 01/25/19 Time of Evaluation: 10:31 - Subjective Subjective: Podiatry progress note - Dr. Aiken 54F seen and evaluated at bedside this AM POD 4 s/p left foot hallux wound debridement. Resting comfortably. Denies pain today. Minimal drainage or strikethrough in dressing. Has no other acute complaints. Denies n/v/f/c/sob. Objective - Vital Signs/Intake and Output Vital Signs (last 24 hours): Temp Pulse Resp BP Pulse Ox 98.0 F 87 20 153/77 H 98 01/25/19 08:22 01/25/19 09:15 01/25/19 08:22 01/25/19 09:15 01/25/19 08:22 - Medications Medications: Current Medications Acetaminophen (Tylenol 325mg Tab) 650 mg PO Q6 PRN PRN Reason: Pain, Mild (1-3) Amlodipine Besylate (Norvasc) 10 mg PO DAILY [facility] Last Admin: 01/25/19 09:14 Dose: 10 mg Aspirin (Aspirin Chewable) 81 mg PO DAILY [facility] Last Admin: 01/25/19 09:19 Dose: 81 mg Atorvastatin Calcium (Lipitor) 20 mg PO DAILY [facility] Last Admin: 01/25/19 09:15 Dose: 20 mg Dextrose (Dextrose 50% Inj) 0 ml IV STAT PRN; Protocol PRN Reason: Hypoglycemia Protocol Dextrose (Glutose 15) 0 gm PO ONCE PRN; Protocol PRN Reason: Hypoglycemia Protocol Enoxaparin Sodium (Lovenox) 40 mg SC DAILY [facility]; Protocol Last Admin: 01/25/19 09:16 Dose: 40 mg Fluticasone Propionate (Flonase) 1 spr ESTEFANY DAILY [facility] Last Admin: 01/25/19 09:17 Dose: 1 spr Glucagon (Glucagen Diagnostic Kit) 0 mg IM STAT PRN; Protocol PRN Reason: Hypoglycemia Protocol Hydrochlorothiazide (Hydrodiuril) 25 mg PO DAILY [facility] Last Admin: 01/25/19 09:14 Dose: 25 mg Piperacillin Sod/Tazobactam (Sod 3.375 gm/ Sodium Chloride) 100 mls @ 100 m ls/hr IVPB 0000,0600,1200,1800 [facility]; Protocol Last Admin: 01/25/19 07:33 Dose: 100 mls/hr Vancomycin HCl 1 gm/ Sodium (Chloride) 250 mls @ 166.667 mls/hr IVPB Q12H [facility]; Protocol Last Admin: 01/24/19 22:39 Dose: 166.667 mls/hr Insulin Detemir (Levemir) 36 units SC HS [facility] Last Admin: 01/24/19 22:37 Dose: 36 units Insulin Detemir (Levemir) 40 units SC ACB [facility] Last Admin: 01/25/19 09:16 Dose: 40 unit Insulin Human Lispro (Humalog) 0 units SC ACCU-CHECK [facility]; Protocol Last Admin: 01/23/19 06:38 Dose: 6 units Insulin Human Lispro (Humalog) 8 units SC AC [facility] Lisinopril (Zestril) 20 mg PO DAILY [facility] Last Admin: 01/25/19 09:15 Dose: 20 mg Montelukast Sodium (Singulair) 10 mg PO DAILY [facility] Last Admin: 01/25/19 09:14 Dose: 10 mg Pantoprazole Sodium (Protonix Ec Tab) 40 mg PO DAILY [facility] Last Admin: 01/25/19 09:16 Dose: 40 mg Propranolol HCl (Inderal) 20 mg PO Q12H [facility] Last Admin: 01/25/19 09:13 Dose: 20 mg - Labs Labs: 01/24/19 04:55 01/24/19 04:55 PT 12.6 Seconds (9.8-13.1) 01/20/19 12:10 INR 1.1 01/20/19 12:10 - Constitutional Appears: Well, Non-toxic, No Acute Distress - Head Exam Head Exam: ATRAUMATIC, NORMOCEPHALIC - Extremities Exam Additional comments: LLE focused VASC: DP and PT 2/4, Cap refill < 3 seconds X 10, no edema noted to the LLE, mild edema at the left hallux NEURO: Diminished gross and protective sensations b/l. DERM: post operative wound appears stable, no necrotic tissue noted, mild erythema noted periwound, 1cc of pus drained from site this AM, mild bleeding noted, clinical signs of infection noted, no crepitus or malodor noted; hyperkeratotic tissue appreciated, manuallly removed from wound borders MSK: no pain on palpation to the base of the hallux at the 1st MTPJ, no pain on calf squeeze, no other obvious deformities, MMT 5/5 to all groups. - Neurological Exam Neurological Exam: Alert, Awake, Oriented x3 - Psychiatric Exam Psychiatric exam: Normal Affect, Normal Mood Assessment and Plan - Assessment and Plan (Free Text) Assessment: 54F POD4 left hallux diabetic wound debridement Plan: Patient seen and evaluated VSS, WBC 5.2 (01/24/19) Operative path pending SHERRY/PVR Pending Report Op culture - beta hemolytic strep group B Continue IV abx Weight bearing to heel on left foot, continue in surgical shoe Wound cleansed with sterile saline and packed with betadine soaked sterile 1/4" packing, and dry sterile dressing with light CHELI wrap Will continue to follow
[2019-01-25] MEDS ORDERED: Insulin Lispro (humaLOG) 100 Units/ml Inj SC SCH (11:30)
--- NOTE | 2019-01-25 12:35 | CP.PCM.PN ---
Subjective - Date & Time of Evaluation Date of Evaluation: 01/25/19 Time of Evaluation: 12:32 - Subjective Subjective: Patient seen and examined at bedside. Reports feeling well and denies any pain. Denies angina, dypsnea, nausea, vomiting, and abdominal pain. Hemodynamically stable. No acute overnight events. Objective - Vital Signs/Intake and Output Vital Signs (last 24 hours): Temp Pulse Resp BP Pulse Ox 97.6 F 84 20 124/82 99 01/25/19 12:12 01/25/19 12:12 01/25/19 12:12 01/25/19 12:12 01/25/19 12:12 - Medications Medications: Current Medications Acetaminophen (Tylenol 325mg Tab) 650 mg PO Q6 PRN PRN Reason: Pain, Mild (1-3) Amlodipine Besylate (Norvasc) 10 mg PO DAILY [facility] Last Admin: 01/25/19 09:14 Dose: 10 mg Aspirin (Aspirin Chewable) 81 mg PO DAILY [facility] Last Admin: 01/25/19 09:19 Dose: 81 mg Atorvastatin Calcium (Lipitor) 20 mg PO DAILY [facility] Last Admin: 01/25/19 09:15 Dose: 20 mg Dextrose (Dextrose 50% Inj) 0 ml IV STAT PRN; Protocol PRN Reason: Hypoglycemia Protocol Dextrose (Glutose 15) 0 gm PO ONCE PRN; Protocol PRN Reason: Hypoglycemia Protocol Enoxaparin Sodium (Lovenox) 40 mg SC DAILY [facility]; Protocol Last Admin: 01/25/19 09:16 Dose: 40 mg Fluticasone Propionate (Flonase) 1 spr ESTEFANY DAILY [facility] Last Admin: 01/25/19 09:17 Dose: 1 spr Glucagon (Glucagen Diagnostic Kit) 0 mg IM STAT PRN; Protocol PRN Reason: Hypoglycemia Protocol Hydrochlorothiazide (Hydrodiuril) 25 mg PO DAILY [facility] Last Admin: 01/25/19 09:14 Dose: 25 mg Piperacillin Sod/Tazobactam (Sod 3.375 gm/ Sodium Chloride) 100 mls @ 100 mls/hr IVPB 0000,0600,1200,1800 [facility]; Protocol Last Admin: 01/25/19 11:33 Dose: 100 mls/hr Vancomycin HCl 1 gm/ Sodium (Chloride) 250 mls @ 166.667 mls/hr IVPB Q12H [facility]; Protocol Last Admin: 01/25/19 11:34 Dose: 166.667 mls/hr Insulin Detemir (Levemir) 36 units SC HS [facility] Last Admin: 01/24/19 22:37 Dose: 36 units Insulin Detemir (Levemir) 40 units SC ACB [facility] Last Admin: 01/25/19 09:16 Dose: 40 unit Insulin Human Lispro (Humalog) 0 units SC ACCU-CHECK [facility]; Protocol Last Admin: 01/23/19 06:38 Dose: 6 units Insulin Human Lispro (Humalog) 8 units SC AC [facility] Last Admin: 01/25/19 12:16 Dose: 8 unit Lisinopril (Zestril) 20 mg PO DAILY [facility] Last Admin: 01/25/19 09:15 Dose: 20 mg Montelukast Sodium (Singulair) 10 mg PO DAILY [facility] Last Admin: 01/25/19 09:14 Dose: 10 mg Pantoprazole Sodium (Protonix Ec Tab) 40 mg PO DAILY [facility] Last Admin: 01/25/19 09:16 Dose: 40 mg Propranolol HCl (Inderal) 20 mg PO Q12H [facility] Last Admin: 01/25/19 09:13 Dose: 20 mg - Labs Labs: 01/24/19 04:55 01/24/19 04:55 PT 12.6 Seconds (9.8-13.1) 01/20/19 12:10 INR 1.1 01/20/19 12:10 - Constitutional Appears: Non-toxic, No Acute Distress - Eye Exam Eye Exam: Normal appearance - ENT Exam ENT Exam: Mucous Membranes Moist - Respiratory Exam Respiratory Exam: Clear to Ausculation Bilateral, NORMAL BREATHING PATTERN. absent: Accessory Muscle Use, Chest Wall Tenderness, Decreased Breath Sounds, Prolonged Expiratory Phase, Rales, Rhonchi, Wheezes, Respiratory Distress, Stridor - Cardiovascular Exam Cardiovascular Exam: REGULAR RHYTHM, +S1, +S2 - GI/Abdominal Exam GI & Abdominal Exam: Soft, Normal Bowel Sounds. absent: Distended, Firm, Guarding, Rigid, Tenderness, Rebound - Extremities Exam Extremities Exam: Normal Capillary Refill Additional comments: Left hallux wrapped. Dorsalis pedis and tibialis posterior pulses present bilaterally. - Neurological Exam Neurological Exam: Alert, Awake, Oriented x3 - Psychiatric Exam Psychiatric exam: Normal Affect, Normal Mood - Skin Skin Exam: Dry, Intact, Normal Color, Warm Assessment and Plan - Assessment and Plan (Free Text) Assessment: 53 year old female with PMH of IDDM and HTN admitted due to infected ulceration to her left hallux s/p wound debridement and left hallux bone biopsy POD #4. Plan: Infected ulcer on left hallux s/p wound debridement of left hallux and bone biopsy r/o Cellulitis vs OM - S/P wound debridement and left hallux bone biopsy 01/20/19 - C/W Vanco and zosyn IV - Vanco trough tomorrow before 8th dose - pain management - Podiatry consulted, recs appreciated - Cardiac consult appreciated- Dr. Lares: - F/U bone biopsy - Repeat ESR : 111 - F/U CRP Chest pain - resolved - EKG unchanged from admission; Trop x1: negative - Chest CT PE protocol: No evidence of acute pulmonary embolus; mild atelectasis in posterior upper and lower lung arguello; localized cystic bronchiectasis right lung base. Medium size hiatal hernia containing food debris and fluid likely secondary to reflux - Cardio on board - C/w Betablockers, Statins and ASA - Had Lexiscan less than 1 m/a neg for ischemia - Fur Trimmer consulted for GERD and gastroparesis Uncontrolled IDDM with hyperglycemia - Chronic - Insulin sliding scale, hypoglycemia protocol - Levemir: 40 units am and 36 units HS - Lispro 8 units ACBD - Home meds resumed -at this time will consult Endocrinology HTN - Chronic, controlled - Home meds resumed DVT ppx - Lovenox 40mg SC
--- NOTE | 2019-01-25 20:06 | PN ---
DATE: 01/25/2019 SUBJECTIVE: The patient denies any chest pain, no shortness of breath. PHYSICAL EXAMINATION: VITAL SIGNS: Blood pressure 124/82, heart rate 84, temperature 97.7, respirations 20. HEENT: Normocephalic. CHEST: Clear. HEART: S1 and S2, regular. EXTREMITIES: 1+ left leg edema. LABORATORY DATA: Today's blood sugars are 317 and 329 respectively. ASSESSMENT: 1. Status post left hallux debridement and biopsy. 2. Uncontrolled diabetes mellitus. 3. Hypertension. RECOMMENDATIONS: Continue current aspirin 81 mg once a day, Inderal 20 mg twice a day, hydrochlorothiazide 25 mg once a day, Lipitor 20 mg once a day, Zosyn at 3.375 g intravenously every 6 hours, vancomycin at 1 g intravenously every 12 hours, Zestril 20 mg daily. I will follow lower extremity ultrasound study performed today. Jared Lares MD
[2019-01-25] MEDS: Insulin Detemir 100 Units/ml Inj SC SCH (21:20)
[2019-01-26] MEDS: Piperacillin/Tazobact 3.375 GM in Sodium Chloride 0.9% 100 ML IVPB SCH ×3 (00:13→13:27)
--- NOTE | 2019-01-26 04:51 | CON ---
DATE: 01/25/2019 ENDOCRINOLOGY CONSULT LOCATION: Room 403. HISTORY OF PRESENT ILLNESS: This is a 53-year-old female with known history of type 2 insulin-requiring diabetes, presenting here with an infected left hallux and undergoing workup for possible underlying osteomyelitis and is now being referred for diabetic evaluation because of persistent hyperglycemic accelerations as noted thereof. PAST MEDICAL HISTORY: As mentioned above, history of type 2 insulin-requiring diabetes, on a combination of Lantus taken as 15 units subcu b.i.d. with NovoLog taken between 6-10 units t.i.d. with meals, history of hypertension and dyslipidemia, history of bronchial asthma. She also had a previous right foot surgery a few years ago. History of diabetic retinopathy and polyneuropathy with painful lower extremity paresthesias. She also had previous laser surgery to both eyes as noted. FAMILY HISTORY: Positive for diabetes, hypertension. SOCIAL HISTORY: The patient has supportive family. No known substance use. 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 REVIEW OF SYSTEMS: Admits to episodic bouts of dizziness and lightheadedness with bifrontal headaches and visual blurring, worse in the last few weeks prior to admission. No chest pains or palpitations or PNDs. Her oral intake has been variable with nausea and dyspepsia and vague upper abdominal pains. Also admits to marked polyuria, nocturia, polydipsia with lower extremity painful paresthesias as mentioned. She also developed this left big toe infection and she thought that there was a foreign body underneath the nail bed and she used tweezers to try to extract the object but was unsuccessful as noted. She noted increasing erythema and edema otherwise as mentioned. PHYSICAL EXAMINATION: GENERAL: This is an average-built female, in no apparent distress. VITAL SIGNS: Blood pressure of 150/90, pulse of 70 beats per minute and regular, temperature 98, respirations 20, height is 5 feet 5 inches. Weight is 174 pounds. HEENT: Head normocephalic. Eyes anicteric with pink conjunctivae. Funduscopy not possible at this time. Ears, nose and throat otherwise normal. NECK: Supple. Thyroid gland is normal in size. No carotid bruits or any cervical adenopathy. CARDIOPULMONARY: Some adynamic precordium. S1, S2. Rapid and regular. LUNGS: Clear to auscultation. ABDOMEN: Flat, soft with positive bowel sounds. EXTREMITIES: No peripheral edema. Pulses are +2 bilaterally. Infected left hallux necrotic ulceration as noted with erythema and edema of the left hallux area. LABORATORY DATA: Her chemistry showed a BUN of 11, sodium 137, potassium 3.7, chloride 98, CO2 of 32, glucose 276 and creatinine 0.7. Her glucose levels are fluctuating and ranging from 266 to 317 and 330 mg/dL. ASSESSMENT: This is a 53-year-old female with uncontrolled type 2 insulin-requiring diabetes with marked hyperglycemic accelerations related to a subtherapeutic insulin regimen and presenting here with a left hallux infected neuropathic ulceration with underlying cellulitis as noted. She also has diabetic microvascular complications from retinopathy and polyneuropathy as noted. PLAN OF MANAGEMENT: We will modify her current insulin regimen and actually switch over to a higher dose of basal insulin given as Levemir at 44 units subcu at bedtime daily to start tonight. We will modify the coverage scale to obviate hypoglycemia and detailed orders have been given using Humalog insulin at a very low-dose algorithm to obviate hypoglycemia. We will add Humalog also given as prandial insulin with 14 units subcu t.i.d. before meals to start today as ordered. We will obtain serial chemistries and supplement accordingly as needed. We will also obtain hemoglobin A1c to confirm her prior glycemic control and baseline thyroid function studies will be ordered. We will also add a lipid panel accordingly. We will follow. Mayra Rivera MD
[2019-01-26 05:46] LABS: ALB/GLOB RATIO 0.8 (1.0-2.1); ALT/SGPT 19 U/L (9-52); AST/SGOT 35 U/L (14-36); BLOOD UREA NITROGEN 16 mg/dl (7-17); CALCIUM 9.3 mg/dL (8.4-10.2); GFR NON-AFRICAN AMERICAN > 60; HDL CHOLESTEROL 33 MG/DL (30-70)
[2019-01-26 05:51] LABS: LDL CHOLESTEROL 81 mg/dL (0-129)
[2019-01-26] MEDS: Insulin Lispro (humaLOG) 100 Units/ml Inj SC SCH ×7 (08:30→22:00)
--- NOTE | 2019-01-26 10:16 | CP.PCM.PN ---
Subjective - Date & Time of Evaluation Date of Evaluation: 01/26/19 Time of Evaluation: 10:14 - Subjective Subjective: Podiatry progress note - Dr. Aiken 54F seen and evaluated at bedside this AM POD 5 s/p left foot hallux wound debridement. Resting comfortably. Denies pain today. Has no other acute complaints. Denies n/v/f/c/sob. Objective - Vital Signs/Intake and Output Vital Signs (last 24 hours): Temp Pulse Resp BP Pulse Ox 97.9 F 83 20 133/77 99 01/26/19 08:34 01/26/19 08:34 01/26/19 08:34 01/26/19 08:34 01/26/19 08:34 - Medications Medications: Current Medications Acetaminophen (Tylenol 325mg Tab) 650 mg PO Q6 PRN PRN Reason: Pain, Mild (1-3) Amlodipine Besylate (Norvasc) 10 mg PO DAILY [facility] Last Admin: 01/25/19 09:14 Dose: 10 mg Aspirin (Aspirin Chewable) 81 mg PO DAILY [facility] Last Admin: 01/25/19 09:19 Dose: 81 mg Atorvastatin Calcium (Lipitor) 20 mg PO DAILY [facility] Last Admin: 01/25/19 09:15 Dose: 20 mg Dextrose (Dextrose 50% Inj) 0 ml IV STAT PRN; Protocol PRN Reason: Hypoglycemia Protocol Dextrose (Glutose 15) 0 gm PO ONCE PRN; Protocol PRN Reason: Hypoglycemia Protocol Enoxaparin Sodium (Lovenox) 40 mg SC DAILY [facility]; Protocol Last Admin: 01/25/19 09:16 Dose: 40 mg Fluticasone Propionate (Flonase) 1 spr ESTEFANY DAILY [facility] Last Admin: 01/25/19 09:17 Dose: 1 spr Glucagon (Glucagen Diagnostic Kit) 0 mg IM STAT PRN; Protocol PRN Reason: Hypoglycemia Protocol Hydrochlorothiazide (Hydrodiuril) 25 mg PO DAILY [facility] Last Admin: 01/25/19 09:14 Dose: 25 mg Piperacillin Sod/Tazobactam (Sod 3.375 gm/ Sodium Chloride) 100 mls @ 100 mls/hr IVPB 0000,0600,1200,1800 [facility]; Protocol Last Admin: 01/26/19 05:39 Dose: 100 mls/hr Vancomycin HCl 1 gm/ Sodium (Chloride) 250 mls @ 166.667 mls/hr IVPB Q12H [facility]; Protocol Last Admin: 01/25/19 21:18 Dose: 166.667 mls/hr Insulin Detemir (Levemir) 44 units SC HS [facility] Last Admin: 01/25/19 21:20 Dose: 44 units Insulin Human Lispro (Humalog) 14 units SC AC [facility] Last Admin: 01/25/19 18:07 Dose: 14 unit Insulin Human Lispro (Humalog) 0 units SC ACHS [facility] Last Admin: 01/25/19 21:26 Dose: Not Given Lisinopril (Zestril) 20 mg PO DAILY [facility] Last Admin: 01/25/19 09:15 Dose: 20 mg Montelukast Sodium (Singulair) 10 mg PO DAILY [facility] Last Admin: 01/25/19 09:14 Dose: 10 mg Pantoprazole Sodium (Protonix Ec Tab) 40 mg PO DAILY [facility] Last Admin: 01/25/19 09:16 Dose: 40 mg Propranolol HCl (Inderal) 20 mg PO Q12H [facility] Last Admin: 01/25/19 20:26 Dose: 20 mg - Labs Labs: 01/24/19 04:55 01/26/19 04:30 PT 12.6 Seconds (9.8-13.1) 01/20/19 12:10 INR 1.1 01/20/19 12:10 - Constitutional Appears: Well, Non-toxic, No Acute Distress - Head Exam Head Exam: ATRAUMATIC, NORMOCEPHALIC - Extremities Exam Additional comments: LLE focused VASC: DP and PT 2/4, Cap refill < 3 seconds X 10, no edema noted to the LLE, mild edema at the left hallux NEURO: Diminished gross and protective sensations b/l. DERM: post operative wound appears stable, no necrotic tissue noted, mild erythema noted periwound, minimal pus drained from site this AM, mild bleeding noted, clinical signs of infection noted, no crepitus or malodor noted; hyperkeratotic tissue appreciated, manuallly removed from wound borders MSK: no pain on palpation to the base of the hallux at the 1st MTPJ, no pain on calf squeeze, no other obvious deformities, MMT 5/5 to all groups. - Neurological Exam Neurological Exam: Alert, Awake, Oriented x3 - Psychiatric Exam Psychiatric exam: Normal Affect, Normal Mood Assessment and Plan - Assessment and Plan (Free Text) Assessment: 54F POD4 left hallux diabetic wound debridement Plan: Patient seen and evaluated VSS, WBC 5.2 (01/24/19) Operative path pending, still being processed as per SHERRY/PVR- normal waveform noted Op culture - beta hemolytic strep group B Continue IV abx Weight bearing to heel on left foot, continue in surgical shoe Wound cleansed with sterile saline and packed with betadine soaked sterile 1/4" packing, and dry sterile dressing with light CHELI wrap Will continue to follow
[2019-01-26] MEDS: Enoxaparin 40 mg Syringe SC SCH (10:44)
[2019-01-26] MEDS: Pantoprazole 40 mg EC Tab PO SCH (10:45)
--- NOTE | 2019-01-26 13:15 | CP.PCM.PN ---
Subjective - Date & Time of Evaluation Date of Evaluation: 01/26/19 Time of Evaluation: 13:15 - Subjective Subjective: Patient seen and examined at bedside. Reports feeling well and denies pain. Denies CP, dypsnea, nausea, vomiting, and abdominal pain. Hemodynamically and vitally stable. No acute overnight events. Objective - Vital Signs/Intake and Output Vital Signs (last 24 hours): Temp Pulse Resp BP Pulse Ox 97.7 F 78 20 168/90 H 99 01/26/19 12:17 01/26/19 12:17 01/26/19 12:17 01/26/19 12:17 01/26/19 12:17 - Medications Medications: Current Medications Acetaminophen (Tylenol 325mg Tab) 650 mg PO Q6 PRN PRN Reason: Pain, Mild (1-3) Amlodipine Besylate (Norvasc) 10 mg PO DAILY [facility] Last Admin: 01/25/19 09:14 Dose: 10 mg Aspirin (Aspirin Chewable) 81 mg PO DAILY [facility] Last Admin: 01/26/19 10:40 Dose: 81 mg Atorvastatin Calcium (Lipitor) 20 mg PO DAILY [facility] Last Admin: 01/26/19 10:44 Dose: 20 mg Dextrose (Dextrose 50% Inj) 0 ml IV STAT PRN; Protocol PRN Reason: Hypoglycemia Protocol Dextrose (Glutose 15) 0 gm PO ONCE PRN; Protocol PRN Reason: Hypoglycemia Protocol Enoxaparin Sodium (Lovenox) 40 mg SC DAILY [facility]; Protocol Last Admin: 01/26/19 10:44 Dose: 40 mg Fluticasone Propionate (Flonase) 1 spr ESTEFANY DAILY [facility] Last Admin: 01/26/19 10:40 Dose: 1 spr Glucagon (Glucagen Diagnostic Kit) 0 mg IM STAT PRN; Protocol PRN Reason: Hypoglycemia Protocol Hydrochlorothiazide (Hydrodiuril) 25 mg PO DAILY [facility] Last Admin: 01/26/19 10:43 Dose: 25 mg Piperacillin Sod/Tazobactam (Sod 3.375 gm/ Sodium Chloride) 100 mls @ 100 mls/hr IVPB 0000,0600,1200,1800 [facility]; Protocol Last Admin: 01/26/19 05:39 Dose: 100 mls/hr Vancomycin HCl 1 gm/ Sodium (Chloride) 250 mls @ 166.667 mls/hr IVPB Q12H [facility]; Protocol Last Admin: 01/26/19 10:46 Dose: 166.667 mls/hr Insulin Detemir (Levemir) 44 units SC HS [facility] Last Admin: 01/25/19 21:20 Dose: 44 units Insulin Human Lispro (Humalog) 14 units SC AC [facility] Last Admin: 01/26/19 08:30 Dose: Not Given Insulin Human Lispro (Humalog) 0 units SC ACHS [facility] Last Admin: 01/26/19 08:30 Dose: Not Given Lisinopril (Zestril) 20 mg PO DAILY [facility] Last Admin: 01/25/19 09:15 Dose: 20 mg Montelukast Sodium (Singulair) 10 mg PO DAILY [facility] Last Admin: 01/26/19 10:45 Dose: 10 mg Pantoprazole Sodium (Protonix Ec Tab) 40 mg PO DAILY [facility] Last Admin: 01/26/19 10:45 Dose: 40 mg Propranolol HCl (Inderal) 20 mg PO Q12H [facility] Last Admin: 01/26/19 10:43 Dose: 20 mg - Labs Labs: 01/24/19 04:55 01/26/19 04:30 PT 12.6 Seconds (9.8-13.1) 01/20/19 12:10 INR 1.1 01/20/19 12:10 - Constitutional Appears: Non-toxic, No Acute Distress - Head Exam Head Exam: NORMAL INSPECTION - ENT Exam ENT Exam: Mucous Membranes Moist - Respiratory Exam Respiratory Exam: Clear to Ausculation Bilateral, NORMAL BREATHING PATTERN. absent: Respiratory Distress - Cardiovascular Exam Cardiovascular Exam: REGULAR RHYTHM, +S1, +S2 - GI/Abdominal Exam GI & Abdominal Exam: Soft. absent: Tenderness - Extremities Exam Additional comments: Left hallux wrapped. Dorsalis pedis and tibialis posterior pulses present bilaterally. - Neurological Exam Neurological Exam: Alert, Awake, Oriented x3 - Psychiatric Exam Psychiatric exam: Normal Affect, Normal Mood - Skin Skin Exam: Dry, Intact, Normal Color, Warm Assessment and Plan - Assessment and Plan (Free Text) Assessment: 53 year old female with PMH of IDDM and HTN admitted due to infected ulceration to her left hallux s/p wound debridement and left hallux bone biopsy, POD #5. Bone biopsy pending at [facility] lab as per podiatry Plan: Infected ulcer on left hallux s/p wound debridement of left hallux and bone biopsy - r/o Cellulitis vs OM - S/P wound debridement and left hallux bone biopsy 01/20/19 - C/W Vanco IV - S/p Zosyn, (01/22-01/26) - Vanco trough today before 8th dose - pain management - Podiatry consulted, recs appreciated - Cardiac consult appreciated- Dr. Lares - F/U bone biopsy -as per podiatry, pending at [facility] lab - Repeat ESR : 111 - F/U CRP Chest pain - resolved - EKG unchanged from admission; Trop x1: negative - Chest CT PE protocol: No evidence of acute pulmonary embolus; mild atelectasis in posterior upper and lower lung arguello; localized cystic bronchiectasis right lung base. Medium size hiatal hernia containing food debris and fluid likely secondary to reflux - Cardio on board - C/w Betablockers, Statins and ASA - Had Lexiscan less than 1 m/a neg for ischemia - Welcome [employer] consulted for GERD and gastroparesis Uncontrolled IDDM with hyperglycemia - Chronic - Insulin sliding scale, hypoglycemia protocol - Levemir: 40 units am and 36 units HS - Lispro 8 units ACBD - Home meds resumed -at this time will consult Endocrinology HTN - Chronic, controlled - Home meds resumed DVT ppx - Lovenox 40mg SC
[2019-01-26] MEDS ORDERED: Potassium Chloride 20 mEq ER Tab PO ONE (16:07)
--- NOTE | 2019-01-26 17:23 | CP.PCM.PN ---
Subjective - Date & Time of Evaluation Date of Evaluation: 01/26/19 Time of Evaluation: 17:20 - Subjective Subjective: I D NOTE CASE REVIEWED ,DISCUSEDD c PCP WOULD RX 4 TO 6 WEEKS c iv ceftriaxone Objective - Vital Signs/Intake and Output Vital Signs (last 24 hours): Temp Pulse Resp BP Pulse Ox 98.2 F 89 17 149/80 98 01/26/19 15:57 01/26/19 15:57 01/26/19 15:57 01/26/19 15:57 01/26/19 15:57 - Medications Medications: Current Medications Acetaminophen (Tylenol 325mg Tab) 650 mg PO Q6 PRN PRN Reason: Pain, Mild (1-3) Amlodipine Besylate (Norvasc) 10 mg PO DAILY [facility] Last Admin: 01/26/19 13:26 Dose: 10 mg Aspirin (Aspirin Chewable) 81 mg PO DAILY [facility] Last Admin: 01/26/19 10:40 Dose: 81 mg Atorvastatin Calcium (Lipitor) 20 mg PO DAILY [facility] Last Admin: 01/26/19 10:44 Dose: 20 mg Dextrose (Dextrose 50% Inj) 0 ml IV STAT PRN; Protocol PRN Reason: Hypoglycemia Protocol Dextrose (Glutose 15) 0 gm PO ONCE PRN; Protocol PRN Reason: Hypoglycemia Protocol Enoxaparin Sodium (Lovenox) 40 mg SC DAILY [facility]; Protocol Last Admin: 01/26/19 10:44 Dose: 40 mg Fluticasone Propionate (Flonase) 1 spr ESTEFANY DAILY [facility] Last Admin: 01/26/19 10:40 Dose: 1 spr Glucagon (Glucagen Diagnostic Kit) 0 mg IM STAT PRN; Protocol PRN Reason: Hypoglycemia Protocol Hydrochlorothiazide (Hydrodiuril) 25 mg PO DAILY [facility] Last Admin: 01/26/19 10:43 Dose: 25 mg Vancomycin HCl 1 gm/ Sodium (Chloride) 250 mls @ 166.667 mls/hr IVPB Q12H [facility]; Protocol Last Admin: 01/26/19 10:46 Dose: 166.667 mls/hr Insulin Detemir (Levemir) 44 units SC HS [facility] Last Admin: 01/25/19 21:20 Dose: 44 units Insulin Human Lispro (Humalog) 14 units SC AC [facility] Last Admin: 01/26/19 17:16 Dose: 14 unit Insulin Human Lispro (Humalog) 0 units SC ACHS [facility] Last Admin: 01/26/19 17:16 Dose: Not Given Lisinopril (Zestril) 20 mg PO DAILY [facility] Last Admin: 01/26/19 13:26 Dose: 20 mg Montelukast Sodium (Singulair) 10 mg PO DAILY [facility] Last Admin: 01/26/19 10:45 Dose: 10 mg Pantoprazole Sodium (Protonix Ec Tab) 40 mg PO DAILY [facility] Last Admin: 01/26/19 10:45 Dose: 40 mg Propranolol HCl (Inderal) 20 mg PO Q12H [facility] Last Admin: 01/26/19 10:43 Dose: 20 mg - Labs Labs: 01/24/19 04:55 01/26/19 04:30 PT 12.6 Seconds (9.8-13.1) 01/20/19 12:10 INR 1.1 01/20/19 12:10
[2019-01-26] MEDS: Insulin Detemir 100 Units/ml Inj SC SCH (21:40)
--- NOTE | 2019-01-27 05:10 | PN ---
DATE: 01/26/2019 ENDOCRINOLOGY FOLLOWUP NOTE LOCATION: Room 403. SUBJECTIVE: This is a 54-year-old female with recent uncontrolled type 2 insulin-requiring diabetes with marked hyperglycemic accelerations and is currently receiving IV antibiotic management for an infected left hallux neuropathic ulceration as noted. Her glycemic levels are fluctuating but improved and the glucose values have ranged from 161 to 131 and 282 mg/dL; however, it was 326 at lunch time today, most likely related to withholding of the insulin regimen in the morning by the nursing staff whenever they get a normal glucose value. Her A1c is extremely elevated at 15.4%. LABORATORY DATA: Her chemistries showed a BUN of 16, sodium 141, potassium 3.5, chloride 100, CO2 35, glucose 119, creatinine 0.7. ASSESSMENT: This is a 54-year-old female with uncontrolled and decompensated type 2 insulin-requiring diabetes with marked hyperglycemic accelerations and underlying microvascular complications of retinopathy and polyneuropathy, presenting here with an infected left hallux neuropathic ulceration as noted. PLAN OF MANAGEMENT: We will continue the modified basal and bolus insulin regimen to allow for dose equilibration and keep her on the Humalog given as 14 units t.i.d. before meals as ordered. We will discuss with the nursing staff not to withhold any insulin regimen once we achieve near optimal metabolic profile or glucose values, as this will defeat the purpose of trying to achieve optimal metabolic control of her diabetic condition, especially with this inpatient admission. Her elevated A1c confirms the presence of poorly controlled and suboptimal metabolic control of her diabetic condition even prior to this admission with a subtherapeutic insulin regimen as given. We will also continue her basal insulin given as Levemir at 44 units subcu at bedtime daily as given. We will continue the low-dose correction scale using Humalog insulin as given to obviate hypoglycemia and detailed orders have been given. We will follow and advise accordingly. Mayra Rivera MD
[2019-01-27 06:12] LABS: BLOOD UREA NITROGEN 16 mg/dl (7-17); CALCIUM 8.8 mg/dL (8.4-10.2); GFR NON-AFRICAN AMERICAN > 60
[2019-01-27] MEDS: Pantoprazole 40 mg EC Tab PO SCH (08:41)
[2019-01-27] MEDS: Enoxaparin 40 mg Syringe SC SCH (08:41)
[2019-01-27] MEDS: Insulin Lispro (humaLOG) 100 Units/ml Inj SC SCH ×7 (08:43→21:33)
[2019-01-27] MEDS: cefTRIAXone 2 GM in Sodium Chloride 0.9% 100 ML IVPB SCH (08:51)
[2019-01-27] MEDS ORDERED: Silver Sulfadiazine 1% Cream (20 gm) TOP SCH (09:00)
--- NOTE | 2019-01-27 11:14 | CP.PCM.PN ---
Subjective - Date & Time of Evaluation Date of Evaluation: 01/27/19 Time of Evaluation: 11:07 - Subjective Subjective: Podiatry progress note - Dr. Aiken 54 y/o female seen and evaluated at bedside this AM POD 6 s/p left foot hallux wound debridement. Resting comfortably. Denies pain today. Has no other acute complaints. Denies n/v/f/c/sob. Patient aware she will need 4-6 weeks of IV Abx and regular dressing changes Objective - Vital Signs/Intake and Output Vital Signs (last 24 hours): Temp Pulse Resp BP Pulse Ox 97.5 F L 94 H 20 138/81 97 01/27/19 08:26 01/27/19 08:42 01/27/19 08:26 01/27/19 08:42 01/27/19 08:26 - Medications Medications: Current Medications Acetaminophen (Tylenol 325mg Tab) 650 mg PO Q6 PRN PRN Reason: Pain, Mild (1-3) Amlodipine Besylate (Norvasc) 10 mg PO DAILY [facility] Last Admin: 01/27/19 08:41 Dose: 10 mg Aspirin (Aspirin Chewable) 81 mg PO DAILY [facility] Last Admin: 01/27/19 08:44 Dose: 81 mg Atorvastatin Calcium (Lipitor) 20 mg PO DAILY [facility] Last Admin: 01/27/19 08:42 Dose: 20 mg Dextrose (Dextrose 50% Inj) 0 ml IV STAT PRN; Protocol PRN Reason: Hypoglycemia Protocol Dextrose (Glutose 15) 0 gm PO ONCE PRN; Protocol PRN Reason: Hypoglycemia Protocol Enoxaparin Sodium (Lovenox) 40 mg SC DAILY [facility]; Protocol Last Admin: 01/27/19 08:41 Dose: 40 mg Fluticasone Propionate (Flonase) 1 spr ESTEFANY DAILY [facility] Last Admin: 01/27/19 08:44 Dose: 1 spr Glucagon (Glucagen Diagnostic Kit) 0 mg IM STAT PRN; Protocol PRN Reason: Hypoglycemia Protocol Hydrochlorothiazide (Hydrodiuril) 25 mg PO DAILY [facility] Last Admin: 01/27/19 08:42 Dose: 25 mg Vancomycin HCl 1 gm/ Sodium (Chloride) 250 mls @ 166.667 mls/hr IVPB Q12H [facility]; Protocol Last Admin: 01/26/19 21:39 Dose: 166.667 mls/hr Ceftriaxone Sodium 2 gm/ (Sodium Chloride) 100 mls @ 100 mls/hr IVPB DAILY [facility]; Protocol Last Admin: 01/27/19 08:51 Dose: 100 mls/hr Insulin Detemir (Levemir) 44 units SC HS [facility] Last Admin: 01/26/19 21:40 Dose: 44 units Insulin Human Lispro (Humalog) 14 units SC AC [facility] Last Admin: 01/27/19 08:43 Dose: 14 unit Insulin Human Lispro (Humalog) 0 units SC ACHS [facility] Last Admin: 01/27/19 08:58 Dose: 2 units Lisinopril (Zestril) 20 mg PO DAILY [facility] Last Admin: 01/27/19 08:40 Dose: 20 mg Montelukast Sodium (Singulair) 10 mg PO DAILY [facility] Last Admin: 01/27/19 08:41 Dose: 10 mg Pantoprazole Sodium (Protonix Ec Tab) 40 mg PO DAILY [facility] Last Admin: 01/27/19 08:41 Dose: 40 mg Propranolol HCl (Inderal) 20 mg PO Q12H [facility] Last Admin: 01/27/19 08:42 Dose: 20 mg - Labs Labs: 01/24/19 04:55 01/27/19 04:45 PT 12.6 Seconds (9.8-13.1) 01/20/19 12:10 INR 1.1 01/20/19 12:10 - Constitutional Appears: Well, Non-toxic, No Acute Distress - Head Exam Head Exam: ATRAUMATIC, NORMOCEPHALIC - Extremities Exam Additional comments: LLE focused VASC: DP and PT 2/4, Cap refill < 3 seconds X 10, no edema noted to the LLE, mild edema at the left hallux NEURO: Diminished gross and protective sensations b/l. DERM: post operative wound appears stable, no necrotic tissue noted, mild erythema noted periwound, no pus drained from site this AM, mild bleeding noted, clinical signs of infection noted, no crepitus or malodor noted; hyperkeratotic tissue appreciated, manuallly removed from wound borders MSK: no pain on palpation to the base of the hallux at the 1st MTPJ, no pain on calf squeeze, no other obvious deformities, MMT 5/5 to all groups. - Neurological Exam Neurological Exam: Alert, Awake, Oriented x3 - Psychiatric Exam Psychiatric exam: Normal Affect, Normal Mood Assessment and Plan - Assessment and Plan (Free Text) Assessment: 54F POD5 left hallux diabetic wound debridement Plan: Patient seen and evaluated VSS, WBC 5.2 (01/24/19) Foot X-ray: findings concerning for small osteomyelitis focus medial aspect toe distal phalanx Foot MRI: suspicious for osteomyelitis of distal phalanx left great toe and likely the proximal phalanx Operative pathology report: focual acute osteomyelitis SHERRY/PVR- normal waveform noted OR culture - beta hemolytic strep group B Continue IV abx Weight bearing to heel on left foot, continue in surgical shoe Wound cleansed with sterile saline and dressed betadine and dry sterile dressing with light CHELI wrap Podiatry recommends patient receive 4-6 weeks of Iv Abx based on pathology resu lts, Patient stable for discharge Patient will also need visiting nurse service for dressing changes: Silvadene, Gauze, Kerlix Silvadene ordered for future dressing changes Will continue to follow
--- NOTE | 2019-01-27 12:18 | CP.PCM.PN ---
Subjective - Date & Time of Evaluation Date of Evaluation: 01/27/19 Time of Evaluation: 12:04 - Subjective Subjective: Patient seen and examined bedside. No current complaints except she feels that ceftriaxone is causing her glucose to spike. Denies CP, dypsnea, nausea, vomiting, and abdominal pain. Hemodynamically and vitally stable. No acute overnight events. Objective - Vital Signs/Intake and Output Vital Signs (last 24 hours): Temp Pulse Resp BP Pulse Ox 98.0 F 92 H 20 132/82 98 01/27/19 11:46 01/27/19 11:46 01/27/19 11:46 01/27/19 11:46 01/27/19 11:46 - Medications Medications: Current Medications Acetaminophen (Tylenol 325mg Tab) 650 mg PO Q6 PRN PRN Reason: Pain, Mild (1-3) Amlodipine Besylate (Norvasc) 10 mg PO DAILY [facility] Last Admin: 01/27/19 08:41 Dose: 10 mg Aspirin (Aspirin Chewable) 81 mg PO DAILY [facility] Last Admin: 01/27/19 08:44 Dose: 81 mg Atorvastatin Calcium (Lipitor) 20 mg PO DAILY [facility] Last Admin: 01/27/19 08:42 Dose: 20 mg Dextrose (Dextrose 50% Inj) 0 ml IV STAT PRN; Protocol PRN Reason: Hypoglycemia Protocol Dextrose (Glutose 15) 0 gm PO ONCE PRN; Protocol PRN Reason: Hypoglycemia Protocol Enoxaparin Sodium (Lovenox) 40 mg SC DAILY [facility]; Protocol Last Admin: 01/27/19 08:41 Dose: 40 mg Fluticasone Propionate (Flonase) 1 spr ESTEFANY DAILY [facility] Last Admin: 01/27/19 08:44 Dose: 1 spr Glucagon (Glucagen Diagnostic Kit) 0 mg IM STAT PRN; Protocol PRN Reason: Hypoglycemia Protocol Hydrochlorothiazide (Hydrodiuril) 25 mg PO DAILY [facility] Last Admin: 01/27/19 08:42 Dose: 25 mg Ceftriaxone Sodium 2 gm/ (Sodium Chloride) 100 mls @ 100 mls/hr IVPB DAILY [facility]; Protocol Last Admin: 01/27/19 08:51 Dose: 100 mls/hr Insulin Detemir (Levemir) 44 units SC HS [facility] Last Admin: 01/26/19 21:40 Dose: 44 units Insulin Human Lispro (Humalog) 14 units SC AC [facility] Last Admin: 01/27/19 12:04 Dose: 14 unit Insulin Human Lispro (Humalog) 0 units SC ACHS [facility] Last Admin: 01/27/19 12:04 Dose: 2 units Lisinopril (Zestril) 20 mg PO DAILY [facility] Last Admin: 01/27/19 08:40 Dose: 20 mg Montelukast Sodium (Singulair) 10 mg PO DAILY [facility] Last Admin: 01/27/19 08:41 Dose: 10 mg Pantoprazole Sodium (Protonix Ec Tab) 40 mg PO DAILY [facility] Last Admin: 01/27/19 08:41 Dose: 40 mg Propranolol HCl (Inderal) 20 mg PO Q12H [facility] Last Admin: 01/27/19 08:42 Dose: 20 mg Silver Sulfadiazine (Silvadene 1% 20 Gm) 1 ea TOP DAILY [facility] - Labs Labs: 01/24/19 04:55 01/27/19 04:45 PT 12.6 Seconds (9.8-13.1) 01/20/19 12:10 INR 1.1 01/20/19 12:10 - Constitutional Appears: Non-toxic, No Acute Distress - Eye Exam Eye Exam: Normal appearance - ENT Exam ENT Exam: Mucous Membranes Moist - Respiratory Exam Respiratory Exam: Clear to Ausculation Bilateral, NORMAL BREATHING PATTERN. absent: Respiratory Distress - Cardiovascular Exam Cardiovascular Exam: REGULAR RHYTHM - GI/Abdominal Exam GI & Abdominal Exam: Soft, Normal Bowel Sounds. absent: Tenderness - Extremities Exam Extremities Exam: absent: Pedal Edema Additional comments: Left hallux wrapped. Dorsalis pedis and tibialis posterior pulses present bilaterally. - Neurological Exam Neurological Exam: Alert, Awake, Oriented x3 - Psychiatric Exam Psychiatric exam: Normal Affect, Normal Mood - Skin Skin Exam: Dry, Normal Color, Warm Assessment and Plan - Assessment and Plan (Free Text) Assessment: 53 year old female with PMH of IDDM and HTN admitted due to infected ulceration to her left hallux s/p wound debridement and left hallux bone biopsy, POD #6. Bone biopsy pending at [facility] lab as per podiatry. Plan: Plan: Infected ulcer on left hallux s/p wound debridement of left hallux and bone bio psy - r/o Cellulitis vs OM - S/P wound debridement and left hallux bone biopsy 01/20/19 - As per ID, Dr Manocchio, Ceftriaxone 2gm x 4-6 weeks for osteo - IR consulted for PICC line for outpatient antibiotics - S/p Vanco IV (01/22-01/27) - S/p Zosyn, (01/22-01/26) - Vanco trough today before 8th dose - pain management - Podiatry consulted, recs appreciated - Cardiac consult appreciated- Dr. Lares - F/U bone biopsy -as per podiatry, pending at [facility] lab - f/u Repeat ESR - F/U CRP Chest pain - resolved - EKG unchanged from admission; Trop x1: negative - Chest CT PE protocol: No evidence of acute pulmonary embolus; mild atelectasis in posterior upper and lower lung arguello; localized cystic bronchiectasis right lung base. Medium size hiatal hernia containing food debris and fluid likely secondary to reflux - Cardio on board - C/w Betablockers, Statins and ASA - Had Lexiscan less than 1 m/a neg for ischemia - Wood Handler consulted for GERD and gastroparesis Uncontrolled IDDM with hyperglycemia - Chronic - Insulin sliding scale, hypoglycemia protocol - As per Dr Rivera: Humalog 14 TID before meals, Levamir 44 at night HTN - Chronic, controlled - Home meds resumed DVT ppx - Lovenox 40mg SC
[2019-01-27 16:36] LABS: HEMOGLOBIN 10.7 g/dL (12.0-16.0); MEAN CELL VOLUME 79.5 fl (81.0-99.0); MEAN CORPUSCULAR HEMOGLOBIN 25.2 pg (27.0-31.0); MEAN CORPUSCULAR HGB CONC 31.7 g/dL (33.0-37.0); RBC 4.24 Mil/uL (3.80-5.20); RED CELL DISTRIBUTION WIDTH 13.8 % (11.5-14.5); WHITE BLOOD COUNT 5.4 K/uL (4.8-10.8)
[2019-01-27] MEDS ORDERED: Insulin Detemir 100 Units/ml Inj SC SCH (22:00)
--- NOTE | 2019-01-28 03:10 | PN ---
DATE: 01/27/2019 ENDOCRINOLOGY FOLLOWUP NOTE LOCATION: Room 403. SUBJECTIVE: This is a 53-year-old female with recent uncontrolled type 2 insulin-requiring diabetes, presenting here with an infected left hallux neuropathic ulceration and is now being followed closely for metabolic management. She continues to have persistent hyperglycemic accelerations as noted overnight and the glucose levels have ranged from 304 to 309 mg/dL. LABORATORY DATA: Her chemistry showed a BUN of 16, sodium 138, potassium 4.1, chloride 98, CO2 of 33, glucose 312 and creatinine 0.7. ASSESSMENT: This is a 53-year-old female with uncontrolled and decompensated type 2 insulin-requiring diabetes with marked hyperglycemic accelerations with clearly a suboptimal therapeutic regimen prior to this admission and now is undergoing intravenous antibiotic management and local debridement of a nonhealing neuropathic infected left hallux ulceration as noted thereof. She also has diabetic polyneuropathy and retinopathy as noted thereof. PLAN OF MANAGEMENT: As discussed lengthily with the patient at bedside the imperative need for tighter metabolic control cannot but be overemphasized especially to forestall future microvascular and macrovascular diabetic complications thereof to continue the plan of management. We will modify once again her basal and bolus insulin regimen and increase the Levemir to 50 units subcu at bedtime daily to start tonight. We will continue the Humalog given as 14 units subcu t.i.d. before meals as ordered. We will also consider the addition of oral hypoglycemic therapy, especially the DPP-4 inhibitors and metformin to improve insulin sensitivity and hopefully lower insulin requirements thereof. We will obtain serial chemistries and supplement accordingly as needed. We will follow. Mayra Rivera MD
[2019-01-28 06:58] VITALS: RESP 19
[2019-01-28] MEDS: Insulin Lispro (humaLOG) 100 Units/ml Inj SC SCH ×4 (07:53→12:48)
[2019-01-28 08:28] VITALS: BP 152/81; PULSE 86; TEMP 97.9; O2SAT 97
[2019-01-28] MEDS: Pantoprazole 40 mg EC Tab PO SCH (08:42)
[2019-01-28] MEDS: cefTRIAXone 2 GM in Sodium Chloride 0.9% 100 ML IVPB SCH (08:42)
[2019-01-28] MEDS ORDERED: Silver Sulfadiazine 1% Cream (20 gm) TOP SCH (09:00)
--- NOTE | 2019-01-28 11:12 | CP.PCM.DIS ---
Provider - Provider Date of Admission: 01/19/19 17:42 Attending physician: Cee Hicks MD Consults: 01/19/19 20:29 Podiatry Consult Stat Comment: Consulting Provider: Penny Aiken Consulting Physician: Penny Aiken Reason for Consult: infected ulceration on Left hallux 01/19/19 21:05 Infectious Disease Consult Routine Comment: Consulting Provider: Kyle Newman Consulting Physician: Kyle Newman Reason for Consult: Left hallux infected ulcer with possible underlying OM. 01/20/19 10:20 Cardiology Consult Routine Comment: Consulting Provider: Jared Lares Consulting Physician: Jared Lares Reason for Consult: Cardiac clearance for podiatry procedure 01/25/19 14:05 Endocrinology Consult Routine Comment: Consulting Provider: Mayra Rivera Consulting Physician: Mayra Rivera Reason for Consult: Uncontrolled DM Time Spent in preparation of Discharge (in minutes): 20 Hospital Course - Lab Results Lab Results: Micro Results 01/19/19 18:50 Blood-Venous Blood Culture - Final NO GROWTH AFTER 5 DAYS 01/19/19 18:50 Blood-Venous Gram Stain - Final TEST NOT PERFORMED 01/19/19 19:30 Blood-Venous Blood Culture - Final NO GROWTH AFTER 5 DAYS 01/19/19 19:30 Blood-Venous Gram Stain - Final TEST NOT PERFORMED 01/21/19 08:32 Toe Gram Stain - Final 01/21/19 08:32 Toe Wound Culture - Final Beta Hemolytic Strep Group B 01/21/19 08:32 Toe Gram Stain - Final 01/21/19 08:32 Toe Wound Culture - Final Beta Hemolytic Strep Group B 01/21/19 08:32 Other: Please Indicate Gram Stain - Final 01/21/19 08:32 Other: Please Indicate Wound Culture - Final Beta Hemolytic Strep Group B 01/19/19 18:06 Abscess - Foot-Right Gram Stain - Final 01/19/19 18:06 Abscess - Foot-Right Wound Culture - Final Beta Hemolytic Strep Group B Most Recent Lab Values WBC 5.4 K/uL (4.8-10.8) 01/27/19 15:38 RBC 4.24 Mil/uL (3.80-5.20) 01/27/19 15:38 Hgb 10.7 g/dL (12.0-16.0) L 01/27/19 15:38 Hct 33.7 % (34.0-47.0) L 01/27/19 15:38 MCV 79.5 fl (81.0-99.0) L 01/27/19 15:38 MCH 25.2 pg (27.0-31.0) L 01/27/19 15:38 MCHC 31.7 g/dL (33.0-37.0) L 01/27/19 15:38 RDW 13.8 % (11.5-14.5) 01/27/19 15:38 Plt Count 352 K/uL (130-400) 01/27/19 15:38 MPV 8.1 fl (7.2-11.7) 01/23/19 05:15 Neut % (Auto) 59.7 % (50.0-75.0) 01/23/19 05:15 Lymph % (Auto) 28.2 % (20.0-40.0) 01/23/19 05:15 Kleberg % (Auto) 8.4 % (0.0-10.0) 01/23/19 05:15 Eos % (Auto) 3.2 % (0.0-4.0) 01/23/19 05:15 Baso % (Auto) 0.5 % (0.0-2.0) 01/23/19 05:15 Neut # (Auto) 3.4 K/uL (1.8-7.0) 01/23/19 05:15 Lymph # (Auto) 1.6 K/uL (1.0-4.3) 01/23/19 05:15 Kleberg # (Auto) 0.5 K/uL (0.0-0.8) 01/23/19 05:15 Eos # (Auto) 0.2 K/uL (0.0-0.7) 01/23/19 05:15 Baso # (Auto) 0.0 K/uL (0.0-0.2) 01/23/19 05:15 ESR 103 mm/hr (0-30) H 01/27/19 12:30 PT 12.6 Seconds (9.8-13.1) 01/20/19 12:10 INR 1.1 01/20/19 12:10 Sodium 138 mmol/l (132-148) 01/27/19 04:45 Potassium 4.1 MMOL/L (3.6-5.0) 01/27/19 04:45 Chloride 98 mmol/L (98-107) 01/27/19 04:45 Carbon Dioxide 33 mmol/L (22-30) H 01/27/19 04:45 Anion Gap 11 (10-20) 01/27/19 04:45 BUN 16 mg/dl (7-17) 01/27/19 04:45 Creatinine 0.7 mg/dl (0.7-1.2) 01/27/19 04:45 Est GFR ( Amer) > 60 01/27/19 04:45 Est GFR (Non-Af Amer) > 60 01/27/19 04:45 POC Glucose (mg/dL) 89 mg/dL (65-110) 01/28/19 10:52 Random Glucose 312 mg/dL (65-105) H 01/27/19 04:45 Hemoglobin A1c 15.4 % (4.2-6.5) H 01/26/19 04:30 Calcium 8.8 mg/dL (8.4-10.2) 01/27/19 04:45 Magnesium 1.8 MG/DL (1.6-2.3) 01/26/19 04:30 Total Bilirubin 0.2 mg/dl (0.2-1.3) 01/26/19 04:30 AST 35 U/L (14-36) 01/26/19 04:30 ALT 19 U/L (9-52) 01/26/19 04:30 Alkaline Phosphatase 77 U/L (38-126) 01/26/19 04:30 Troponin I < 0.0120 ng/mL (0.00-0.120) 01/22/19 10:30 C-Reactive Protein 50.90 mg/L (0.0-9.9) H 01/23/19 05:15 Total Protein 6.9 G/DL (6.3-8.2) 01/26/19 04:30 Albumin 3.0 g/dL (3.5-5.0) L 01/26/19 04:30 Globulin 3.8 gm/dL (2.2-3.9) 01/26/19 04:30 Albumin/Globulin Ratio 0.8 (1.0-2.1) L 01/26/19 04:30 Triglycerides 114 mg/DL (0-149) D 01/26/19 04:30 Cholesterol 139 mg/dL (0-199) 01/26/19 04:30 LDL Cholesterol Direct 81 mg/dL (0-129) 01/26/19 04:30 HDL Cholesterol 33 MG/DL (30-70) 01/26/19 04:30 Procalcitonin 0.06 NG/ML (0.19-0.49) L 01/22/19 08:37 TSH 3rd Generation 0.70 mIU/ML (0.46-4.68) 01/26/19 04:30 Urine Color Yellow (YELLOW) 01/24/19 21:54 Urine Clarity Clear (Clear) 01/24/19 21:54 Urine pH 6.0 (5.0-8.0) 01/24/19 21:54 Ur Specific [place] 1.016 (1.003-1.030) 01/24/19 21:54 Urine Protein 30 mg/dL (NEGATIVE) 01/24/19 21:54 Urine Glucose (UA) >=500 mg/dL (NEGATIVE) 01/24/19 21:54 Urine Ketones Negative mg/dL (NEGATIVE) 01/24/19 21:54 Urine Blood Negative (NEGATIVE) 01/24/19 21:54 Urine Nitrate Negative (NEGATIVE) 01/24/19 21:54 Urine Bilirubin Negative (NEGATIVE) 01/24/19 21:54 Urine Urobilinogen 0.2-1.0 mg/dL (0.2-1.0) 01/24/19 21:54 Ur Leukocyte Esterase Neg Marleny/uL (Negative) 01/24/19 21:54 Urine RBC (Auto) 2 /hpf (0-3) 01/24/19 21:54 Urine Microscopic WBC 1 /hpf (0-5) 01/24/19 21:54 Ur Squamous Epith Cells 1 /hpf (0-5) 01/24/19 21:54 Hyaline Casts 0-2 /hpf (0-2) 01/24/19 21:54 Random Vancomycin 5.3 ug/mL 01/22/19 08:37 - Hospital Course Hospital Course: 53 year old female with PMH of IDDM and HTN admitted due to infected ulceration to her left hallux s/p wound debridement and left hallux bone biopsy. Foot X-ray: findings concerning for small osteomyelitis focus medial aspect toe distal phalanx. Foot MRI: suspicious for osteomyelitis of distal phalanx left great toe and likely the proximal phalanx. Operative pathology report: focual acute osteomyelitis. SHERRY/PVR- normal waveform noted. OR culture - beta hemolytic strep group B. PIC placed 01/28/19. Insulin regimen evaluated and recommended as per Dr Rivera. Podiatry saw patient daily for regular dressing change daily. Pt stable and medically cleared for discharge to home on POD #7 with 5 additional weeks of IV Rocephin 2gm daily (S/p Vanco IV (01/22-01/27), S/p Zosyn, (01/22-01/26). Continue with home medications and DM insulin regimen as per Dr Rivera, RX sent. As per podiatry, pt needs visiting nurse service for dressing changes (Silvadene, Gauze, and Kerlix). Pt declined visiting nurse service for dressing changes, agreed to follow-up at podiatry clinic weekly. Weight bearing to heel, continue surgical shoe. Follow up with Dr Hicks February 08 at 10:40am. Discharge Exam - Head Exam Head Exam: ATRAUMATIC, NORMOCEPHALIC - Eye Exam Eye Exam: Normal appearance - ENT Exam ENT Exam: Mucous Membranes Moist - Respiratory Exam Respiratory Exam: NORMAL BREATHING PATTERN, UNREMARKABLE. absent: Respiratory Distress - Cardiovascular Exam Cardiovascular Exam: REGULAR RHYTHM - GI/Abdominal Exam GI & Abdominal Exam: Soft. absent: Tenderness - Extremities Exam Additional comments: Left hallux wrapped. Dorsalis pedis and tibialis posterior pulses present bilaterally. PICC placed. - Neurological Exam Neurological exam: Alert, Oriented x3 - Psychiatric Exam Psychiatric exam: Normal Affect, Normal Mood - Skin Skin Exam: Dry, Intact, Normal Color, Warm Discharge Plan - Discharge Medications Prescriptions: hydroCHLOROthiazide [Hydrodiuril] 25 mg PO DAILY #30 tab Insulin Aspart, Recombinant [Novolog] 14 unit SQ ACTID #1 unit Insulin Glargine, Recombina [Lantus] 50 unit SQ HS #1 unit - Follow Up Plan Condition: STABLE Disposition: HOME/ ROUTINE Instructions: Diabetic Foot Ulcer (DC), Peripherally-Inserted Central Catheter (DC), Wound Incision and Drainage (DC) Additional Instructions: Follow up with Dr Hicks February 08 at 10:40am homecare services; [facility] infusion [phone] [facility] visiting nurse [phone] Referrals: Cee Hicks MD [Family Provider] - Penny Aiken DPM [Medical Doctor] -
--- NOTE | 2019-01-28 11:51 | CP.PCM.PN ---
Subjective - Date & Time of Evaluation Date of Evaluation: 01/28/19 Time of Evaluation: 13:21 - Subjective Subjective: Podiatry progress note - Dr. Aiken 54 y/o female seen and evaluated at bedside this AM with Dr. Aiken POD 7 s/p left foot hallux wound debridement. Resting comfortably. Denies pain today. Has no other acute complaints. Denies n/v/f/c/sob. Patient aware she is being discharged on 6 weeks of IV Abx at this time. Patient will perform regular dressing changes. Objective - Vital Signs/Intake and Output Vital Signs (last 24 hours): Temp Pulse Resp BP Pulse Ox 97.9 F 86 19 152/81 H 97 01/28/19 08:28 01/28/19 08:41 01/28/19 08:28 01/28/19 08:41 01/28/19 08:28 - Medications Medications: Current Medications Acetaminophen (Tylenol 325mg Tab) 650 mg PO Q6 PRN PRN Reason: Pain, Mild (1-3) Amlodipine Besylate (Norvasc) 10 mg PO DAILY [facility] Last Admin: 01/28/19 08:40 Dose: 10 mg Aspirin (Aspirin Chewable) 81 mg PO DAILY [facility] Last Admin: 01/27/19 08:44 Dose: 81 mg Atorvastatin Calcium (Lipitor) 20 mg PO DAILY [facility] Last Admin: 01/28/19 08:39 Dose: 20 mg Dextrose (Dextrose 50% Inj) 0 ml IV STAT PRN; Protocol PRN Reason: Hypoglycemia Protocol Dextrose (Glutose 15) 0 gm PO ONCE PRN; Protocol PRN Reason: Hypoglycemia Protocol Enoxaparin Sodium (Lovenox) 40 mg SC DAILY [facility]; Protocol Last Admin: 01/27/19 08:41 Dose: 40 mg Fluticasone Propionate (Flonase) 1 spr ESTEFANY DAILY [facility] Last Admin: 01/28/19 08:38 Dose: Not Given Glucagon (Glucagen Diagnostic Kit) 0 mg IM STAT PRN; Protocol PRN Reason: Hypoglycemia Protocol Hydrochlorothiazide (Hydrodiuril) 25 mg PO DAILY [facility] Last Admin: 01/28/19 08:39 Dose: 25 mg Ceftriaxone Sodium 2 gm/ (Sodium Chloride) 100 mls @ 100 mls/hr IVPB DAILY [facility]; Protocol Last Admin: 01/28/19 08:42 Dose: 100 mls/hr Insulin Detemir (Levemir) 50 units SC HS [facility] Last Admin: 01/27/19 21:36 Dose: 50 units Insulin Human Lispro (Humalog) 14 units SC AC [facility] Last Admin: 01/28/19 08:36 Dose: 14 unit Insulin Human Lispro (Humalog) 0 units SC ACHS [facility] Last Admin: 01/28/19 07:53 Dose: Not Given Lisinopril (Zestril) 20 mg PO DAILY [facility] Last Admin: 01/28/19 08:41 Dose: 20 mg Montelukast Sodium (Singulair) 10 mg PO DAILY [facility] Last Admin: 01/28/19 08:41 Dose: 10 mg Pantoprazole Sodium (Protonix Ec Tab) 40 mg PO DAILY [facility] Last Admin: 01/28/19 08:42 Dose: 40 mg Propranolol HCl (Inderal) 20 mg PO Q12H [facility] Last Admin: 01/28/19 08:39 Dose: 20 mg Silver Sulfadiazine (Silvadene 1% 20 Gm) 0 ea TOP DAILY [facility] - Labs Labs: 01/27/19 15:38 01/27/19 04:45 PT 12.6 Seconds (9.8-13.1) 01/20/19 12:10 INR 1.1 01/20/19 12:10 - Constitutional Appears: Well, Non-toxic, No Acute Distress - Head Exam Head Exam: ATRAUMATIC, NORMOCEPHALIC - Extremities Exam Additional comments: LLE focused VASC: DP and PT 2/4, Cap refill < 3 seconds X 10, no edema noted to the LLE, mild edema at the left hallux NEURO: Diminished gross and protective sensations b/l. DERM: post operative wound appears stable, no necrotic tissue noted, mild erythema noted periwound, no pus drained from site this AM, no bleeding noted, no clinical signs of infection noted, no crepitus or malodor noted; hyperkeratotic tissue appreciated, wound bed clean and dry at this time MSK: no pain on palpation to the base of the hallux at the 1st MTPJ, no pain on calf squeeze, no other obvious deformities, MMT 5/5 to all groups. - Neurological Exam Neurological Exam: Alert, Awake, Oriented x3 - Psychiatric Exam Psychiatric exam: Normal Affect, Normal Mood Assessment and Plan - Assessment and Plan (Free Text) Assessment: 54F POD7 left hallux diabetic wound debridement Plan: Patient seen and evaluated with Dr. Aiken VSDorothy, WBC 5.2 (01/24/19) Foot X-ray: findings concerning for small osteomyelitis focus medial aspect toe distal phalanx Foot MRI: suspicious for osteomyelitis of distal phalanx left great toe and likely the proximal phalanx Operative pathology report: focual acute osteomyelitis SHERRY/PVR- normal waveform noted OR culture - beta hemolytic strep group B Continue IV abx Weight bearing to heel on left foot, continue in surgical shoe Wound cleansed with sterile saline and dressed SSD and dry sterile dressing with light CHELI wrap Podiatry to be discharged home on 6 week of IV Abx: Rocephin DAILY via PICC Patient states she will perform her own dressing changes at home: Rosie Zepeda Kerlix Patient will follow up in Podiatry Clinic 1/week Disability paperwork filled out for patient Will continue to follow
[2019-01-28] MEDS: Enoxaparin 40 mg Syringe SC SCH (12:48)
--- NOTE | 2019-01-28 13:25 | RAD ---
Date of service: 01/28/2019 PROCEDURE: CHEST RADIOGRAPH, 1 VIEW HISTORY: for PICC line verification COMPARISON: 12/14/2018. FINDINGS: LUNGS: Clear. PLEURA: No pneumothorax or pleural fluid seen. CARDIOVASCULAR: No aortic atherosclerotic calcification present. Normal. PICC line in satisfactory position in the SVC within 5 cm of the cavoatrial junction. OSSEOUS STRUCTURES: No significant abnormalities. VISUALIZED UPPER ABDOMEN: Normal. OTHER FINDINGS: None. IMPRESSION: No adverse findings/no pneumothorax following PICC line placement. No active pulmonary disease.
--- NOTE | 2019-01-28 13:47 | VASCLAB ---
Date of service: 01/25/2019 STUDY DESCRIPTION: Lower Extremity Arterial Exam (PVR). HISTORY: INFECTED FOOT ULCER PRIORS: None. TECHNIQUE: Pulse volume recording waveforms and segmental pressures of bilateral lower extremities at multiple levels were obtained. Ankle Brachial Indices (ABIs) were calculated. Report prepared by Junior Gill RDMS,MISAEL,NIDHI OATES RIGHT LOWER EXTREMITY: * Brachial artery: Pressure - 127 mmHg. * High thigh: Pressure - 188 mmHg: Ratio - 1.48: PVR waveform - Pulsatile * Low thigh: Pressure - mmHg: Ratio - PVR waveform: Pulsatile * Calf: Pressure - 206 mmHg: Ratio - 1.62 PVR waveform: Pulsatile * Posterior tibial Artery: Pressure - 228 mmHg: Ratio - 1.80 PVR waveform: Pulsatile * Dorsalis pedis Artery: Pressure - 216 mmHg: Ratio - 1.70 PVR waveform: Pulsatile * Great toe: Pressure - mmHg: Ratio - PVR waveform: Pulsatile Ankle brachial index (SHERRY): 1.80 LEFT LOWER EXTREMITY: * Brachial artery: Pressure - 125 mmHg. * High thigh: Pressure - 174 mmHg: Ratio - 1.37: PVR waveform - Pulsatile * Low thigh: Pressure - mmHg: Ratio - PVR waveform: Pulsatile * Calf: Pressure - 183 mmHg: Ratio - 1.44 PVR waveform: Pulsatile * Posterior tibial Artery: Pressure - >240 mmHg: Ratio - NC PVR waveform: Pulsatile * Dorsalis pedis Artery: Pressure - 237 mmHg: Ratio - 1.87 PVR waveform: Pulsatile * Great toe: Pressure - mmHg: Ratio - PVR waveform: Pulsatile Ankle brachial index (SHERRY): 1.87 OTHER FINDINGS: IMPRESSION: Right: The ankle pressure index of the right lower extremity is non-diagnostic due to possible arterial wall calcifications. Left: The ankle pressure index of the left lower extremity is non-diagnostic due to possible arterial wall calcifications. Recommend CT angiogram.
--- NOTE | 2019-01-28 17:56 | PN ---
DATE: 01/28/2019 SUBJECTIVE: The patient denies any chest pain. She complains of mild left leg discomfort. PHYSICAL EXAMINATION: VITAL SIGNS: Blood pressure 152/81, heart rate 86, temperature 97.9, respirations 19. HEENT: Pale conjunctivae. CHEST: Clear. HEART: S1, S2 regular. EXTREMITIES: No calf tenderness. Minimal left leg edema. LABORATORY DATA: Laboratories yesterday showed hemoglobin and hematocrit 10.3 and 33.7. White count and platelet counts are within normal limits. Today's blood sugar is 212 and 89 respectively. Today's chest x-ray was unremarkable. The pathology reports fragments of bone with variable bone fragility containing rare minute average of neutrophils mixed with edema, fluid, and minute amount of fresh blood in marrow space, possibly suggestive of focal acute osteomyelitis. Lower extremity ultrasound report is still pending. ASSESSMENT: 1. Status post left hallux debridement and biopsy suggestive of focal osteomyelitis. 2. Uncontrolled diabetes mellitus. 3. Hypertension. 4. Atypical chest discomfort in the postoperative period. RECOMMENDATIONS: Continue aspirin 81 mg once a day, 2 g daily, hydrochlorothiazide 25 mg daily, Inderal 20 mg twice a day, Lipitor 20 mg once a day, Norvasc 10 mg once a day, subcutaneous Lovenox 40 mg daily, and Zestril 20 mg daily. I instructed the nurse to contact the Ultrasound Department to obtain official report of the lower extremity ultrasound prior to the patient's discharge. Jared Lares MD
--- NOTE | 2019-01-28 20:04 | PN ---
DATE: 01/28/2019 ENDOCRINOLOGY FOLLOWUP NOTE LOCATION: Room 656, bed 2. SUBJECTIVE: This is a 54-year-old female with recent uncontrolled type 2 insulin-requiring diabetes presenting here with marked hyperglycemic accelerations with an intercurrent lower extremity neuropathic infected ulceration with currently receiving IV antibiotic management and is now being followed closely also for metabolic management. Her glycemic levels are fluctuating but improved, and the glucose levels have ranged from 89 to 212 mg/dL today. However, it was 384 at bedtime last night. LABORATORY DATA: Her chemistry showed a BUN of 16, sodium 138, potassium 4.1, chloride 98, CO2 of 33, glucose 312, and creatinine 0.7. ASSESSMENT: This is a 54-year-old female with uncontrolled and decompensated type 2 insulin-requiring diabetes with marked hyperglycemic accelerations related to a subtherapeutic insulin regimen and is now being followed closely for metabolic management. She also has diabetic microvascular complications of retinopathy and polyneuropathy with underlying peripheral arterial disease and vasculopathy. PLAN OF MANAGEMENT: We will continue the modified and higher dosing of the Levemir given as 50 units subcu at bedtime daily to start tonight. We will also continue the Humalog given as 14 units subcu t.i.d. before meals as ordered. We will continue the low-dose correction scale using Humalog insulin as given. We will titrate incrementally as indicated to optimize metabolic control. We will follow. Mayra Rivera MD
--- NOTE | 2019-02-09 09:30 | PQF ---
Sam Ha DPM PROVIDER RESPONSE TEXT: Excisional debridement of subcutaneous tissue REVIEWER QUERY TEXT: Debridement Type Debridement is documented in the Medical Record. Please specify the type and extent of debridement to include the method and instruments used. Depth of tissue removed: Such as: -- Skin -- Subcutaneous tissue -- Fascia -- Muscle -- Bone -- Other, please specify The patient's Clinical Indicators include: PER OP. RPT. 01/21 DOCUMENTS " MECHANICAL DEBRIDEMENT TO REMOVE FIBROTIC NONVIABLE TISSUE, REMOVING BASE AND WOUND MARGINS". PLEASE CLARIFY IF "EXCISIONAL" DEBRIDEMENT WAS PERFORMED. -- Query created by: Leona Elliott on 01/31/2019 04:06 PM JASON
--- NOTE | 2019-02-09 14:18 | PQF ---
PROVIDER RESPONSE TEXT: Depth of tissue removed: Such as: -- Muscle -- Bone With the use of a #15 blade REVIEWER QUERY TEXT: Debridement Type Debridement is documented in the Medical Record. Please specify the type and extent of debridement to include the method and instruments used. Depth of tissue removed: Such as: -- Skin -- Subcutaneous tissue -- Fascia -- Muscle -- Bone -- Other, please specify The patient's Clinical Indicators include: PER OP. RPT. 01/21 DOCUMENTS " MECHANICAL DEBRIDEMENT TO REMOVE FIBROTIC NONVIABLE TISSUE, REMOVING BA SE AND WOUND MARGINS". PLEASE CLARIFY IF "EXCISIONAL" DEBRIDEMENT WAS PERFORMED. Query created by: Leona Elliott on 01/31/2019 4:06 PM Electronically signed by: Penny Aiken DPM 02/09/2019 2:15 PM
== END 2019-01-28 16:57 | disposition home or self-care (01) | DRG 623 ==
LOC: H.ER 15:49 → H.ERHOLD 17:42 → H.MEDSURG1 22:35 → H.TEL 01-21 10:24 → H.MEDSURG1 01-27 18:08
PROVIDERS: ADMIT Family Medicine; ATTEND Family Medicine
PROC: 3E0234Z Introduction of Serum, Toxoid and Vaccine into Muscle, Percutaneous Approach (ICD-10-PCS; 2019-01-20)
PROC: 0JBR0ZZ Excision of Left Foot Subcutaneous Tissue and Fascia, Open Approach (ICD-10-PCS; 2019-01-21)
PROC: 0QBR0ZX Excision of Left Toe Phalanx, Open Approach, Diagnostic (ICD-10-PCS; principal; 2019-01-21 07:45)
PROC: 02HV33Z Insertion of Infusion Device into Superior Vena Cava, Percutaneous Approach (ICD-10-PCS; 2019-01-28)
PROC: 3E04329 Introduction of Other Anti-infective into Central Vein, Percutaneous Approach (ICD-10-PCS; 2019-01-28)
DX: E11.621 Type 2 diabetes mellitus with foot ulcer (principal); M86.172 Other acute osteomyelitis, left ankle and foot; J98.11 Atelectasis; E11.69 Type 2 diabetes mellitus with other specified complication; L97.529 Non-pressure chronic ulcer of other part of left foot with unspecified severity; L03.032 Cellulitis of left toe; B95.1 Streptococcus, group B, as the cause of diseases classified elsewhere; E11.65 Type 2 diabetes mellitus with hyperglycemia; E11.42 Type 2 diabetes mellitus with diabetic polyneuropathy; E11.51 Type 2 diabetes mellitus with diabetic peripheral angiopathy without gangrene; E11.319 Type 2 diabetes mellitus with unspecified diabetic retinopathy without macular edema; E11.43 Type 2 diabetes mellitus with diabetic autonomic (poly)neuropathy; K31.84 Gastroparesis; K21.9 Gastro-esophageal reflux disease without esophagitis; R07.89 Other chest pain; I10 Essential (primary) hypertension; E78.5 Hyperlipidemia, unspecified; E78.00 Pure hypercholesterolemia, unspecified; J45.909 Unspecified asthma, uncomplicated; Z79.4 Long term (current) use of insulin; Z79.82 Long term (current) use of aspirin; Z90.710 Acquired absence of both cervix and uterus; Z23 Encounter for immunization